=== PATIENT | male | born 1960 | race African-American/Black ===

== ENCOUNTER 2024-02-14 10:48 | Inpatient (IN) | payer OTHER ==
[~2024-02-14] VITALS: Ht 180.3 cm; Wt 94.4 kg
[2024-02-14 11:00] VITALS: PULSE 69; RESP 18; O2SAT 98
--- NOTE | 2024-02-14 11:00 | ED.PDOC ---
History of Present Illness HPI Comments 63 Y M BIBA with PMHX of HTN and DM, presents to the ED with CC of syncope. Per EMS, patient was having breakfast at [employer] with daughter when he got up to use the bathroom and had a near syncopal episode with associated vomiting. Patient relays, that he woke up this morning feeling fine but has been experiencing chronic back pain x1week due to herniated disks. Per EMS, all VS were stable and BS on the glucometer read at 314. Patient denies, tobacco usage, ETOH consumption, or illicit drug use. Patient denies LOC, fever, chills, or headache. Chief Complaint: Syncope Time Seen by MD: 10:50 Reviewed Notes: Nurses Notes, Supply Controller Notes, Medications, Allergies Allergies: Coded Allergies: NO KNOWN ALLERGIES (Unverified , 01/18/10) Information Source: Patient, Emergency Med Personnel Mode of Arrival: EMS Severity: Mild Timing: Minutes Duration: Since onset Prehospital treatment: Accucheck Past Medical History PAST MEDICAL HISTORY: DM, HTN Surgical History: Hernia Repair, Tonsillectomy Surgical History (Other): RIGHT KNEE REPLACMENT Family History Family History: Family hx of Cancer Social History Smoker: Non-Smoker Alcohol: Occasionally Drugs: Denies Drug Use Lives In: Home Constitutional: reports: weakness; denies: chills, diaphoresis, fatigue, fever, malaise, sweats, others EENTM: denies: blurred vision, double vision, ear bleeding, ear discharge, ear drainage, ear pain, ear ringing, eye pain, eye redness, hearing loss, mouth pain, mouth swelling, nasal discharge, nose bleeding, nose congestion, nose pain, photophobia, tearing, throat pain, throat swelling, voice changes, others Respiratory: denies: cough, hemoptysis, orthopnea, SOB at rest, shortness of breath, SOB with excertion, stridor, wheezing, others Cardiovascular: denies: chest pain, dizzy spells, diaphoresis, Dyspnea on exertion, edema, irregular heart beat, left arm pain, lightheadedness, palpitations, PND, syncope, others Gastrointestinal: denies: abdomen distended, abdominal pain, blood streaked bowels, constipated, diarrhea, dysphagia, difficulty swallowing, hematemesis, melena, nausea, poor appetite, poor fluid intake, rectal bleeding, rectal pain, vomiting, others Genitourinary: denies: burning, dysuria, flank pain, frequency, hematuria, incontinence, penile discharge, penile sore, pain, testicle pain, testicle swelling, urgency, others Neurological: denies: dizziness, fainting, headache, left sided numbness, left sided weakness, numbness, paresthesia, pre-existing deficit, right sided numbness, right sided weakness, seizure, speech problems, tingling, tremors, weakness, others Musculoskeletal: reports: back pain; denies: gout, joint pain, joint swelling, muscle pain, muscle stiffness, neck pain, others Integumetry: denies: bruises, change in color, change in hair/nails, dryness, laceration, lesions, lumps, rash, wounds, others Allergic/Immunocompromised: denies: Difficulty Healing, Frequent Infections, Hives, Itching, others Hematologic/Lymphatic: denies: anemia, blood clots, easy bleeding, easy bruising, swollen glands, others Endocrine: denies: excessive hunger, excessive sweating, excessive thirst, excessive urination, flushing, intolerance to cold, intolerance to heat, unexplained weight gain, unexplained weight loss, others Psychiatric: denies: anxiety, bipolar disorder, depression, hopeless, panic disorder, schizophrenia, sleepless, suicidal, others All Other Systems: Reviewed and Negative Physical Exam General Appearance: Moderate Distress HEENT: Pale Conjuntivae (L), Pale Conjuntivae (R), Pharynx Normal, TMs Normal Neck: Full Range of Motion, Non-Tender, Normal, Normal Inspection Respiratory: Chest Non-Tender, Lungs Clear, No Accessory Muscle Use, No Respiratory Distress, Normal Breath Sounds Cardiovascular: No Edema, No JVD, No Murmur, No Gallop, Normal Peripheral Pulses, Regular Rate/Rhythm Breast Exam: Deferred Gastrointestinal: No Organomegaly, Non Tender, No Pulsatile Mass, Normal Bowel Sounds, Soft Genitalia: Deferred Pelvic: Deferred Rectal: Deferred Extremities: No calf tenderness, Normal capillary refill, Normal inspection, Normal range of motion, Non-tender, No pedal edema Musculoskeletal : Apperance: Normal Neurologic: Alert, coke drawer II-XII nml as Tested, Motor Weakness, Normal Affect, Normal Mood, No Sensory Deficits Cerebellar Function: Normal Reflexes: Normal Skin: Dry, Normal Color, Warm Lymphatic: No Adenopathy Was a procedure done? Was a procedure done?: No EKG EKG : Pulse Rate (adult): 65 [place]: Normal Cardiac Rhythm: NSR Block: None Hypertrophy: None ST: Normal Differential Dx Considerations may include: NEAR SYNCOPAL EPISODE, WEAKNESS, ELECTROLYTE IMBALANCE X-Ray, Labs, Meds, VS Vital Signs Date Time Temp Pulse Resp B/P (MAP) Pulse Ox O2 Delivery O2 Flow Rate FiO2 02/14/24 12:56 98.7 69 18 144/92 (109) 99 98.7 02/14/24 11:00 69 18 98 Room Air* 0 21 02/14/24 11:00 98.3 69 18 134/79 (97) 98 98.3 02/14/24 11:00 65 02/14/24 10:56 98.2 69 18 134/79 (97) 98 98.2 02/14/24 10:52 97.6 70 16 153/95 (114) 99 02/14/24 10:48 65 Lab Test 02/14/24 12:24 02/14/24 11:03 02/14/24 10:59 Range/Units Troponin I High Sensitivity < 3 L < 3 L </=54 ng/L White Blood Count 9.9 4.4-10.8 10^3/uL Red Blood Count 5.60 4.5-5.90 10^6/uL Hemoglobin 17.2 13.5-17.5 g/dL Hematocrit 50.0 41.0-53.0 % Mean Corpuscular Volume 89.3 80.0-100.0 fL Mean Corpuscular Hemoglobin 30.8 28.0-32.0 pg Mean Corpuscular Hemoglobin Concent 34.4 32.0-36.0 g/dL Red Cell Distribution Width 12.6 11.8-14.3 % Platelet Count 213 140-450 10^3/uL Mean Platelet Volume 8.6 6.9-10.8 fL Neutrophils (%) (Auto) 70.6 37.0-80.0 % Lymphocytes (%) (Auto) 20.7 10.0-50.0 % Monocytes (%) (Auto) 6.2 0.0-12.0 % Eosinophils (%) (Auto) 2.0 0.0-7.0 % Basophils (%) (Auto) 0.5 0.0-2.0 % Neutrophils # (Auto) 7.0 1.6-8.6 10 ^3/uL Lymphocytes # (Auto) 2.0 0.4-5.4 10 ^3/uL Monocytes # (Auto) 0.6 0-1.3 10 ^3/uL Eosinophils # (Auto) 0.2 0-0.8 10 ^3/uL Basophils # (Auto) 0.1 0-0.2 10 ^3/uL Nucleated Red Blood Cells 0.0 % Sodium Level 137 136-145 mmol/L Potassium Level 3.6 3.5-5.1 mmol/L Chloride Level 105 98-107 mmol/L Carbon Dioxide Level 22 20-31 mmol/L Anion Gap 10 5-15 Blood Urea Nitrogen 11 9-23 mg/dL Creatinine 1.10 0.700-1.30 mg/dL Glomerular Filtration Rate Calc 76 >90 mL/min BUN/Creatinine Ratio 10.0 10.0-20.0 Serum Glucose 317 H 74-106 mg/dL Calcium Level 10.0 8.7-10.4 mg/dL POC Glucose 275 H 70-106 mg/dl Current Medications Medications (Trade) Dose Ordered Sig/Graeme Route Start Time Stop Time Status Last Admin Sodium Chloride 500 ml @ 500 mls/hr Q1H ONCE IV 02/14/24 11:00 02/14/24 11:59 DC 02/14/24 11:[address]: INDINGS: There is no evidence of acute intracranial hemorrhage, mass, mass effect midline shift. There is no hydrocephalus or extra-axial fluid collection. There are small hypodense foci in the bilateral basal ganglia which may represent prominent perivascular spaces. Grant-white matter differentiation is maintained. The visualized paranasal sinuses and mastoid air cells are clear. The calvarium is intact. IMPRESSION: 1. No acute intracranial process. HS:Y ATED BY: DALTON GALEANA MD DICTATED DATE/TIME: 02/14/241144 SIGNED BY: DALTON GALEANA MD SIGNED DATE/TIME: 02/14/241144 CC: The patient was being admitted with autonomic dysfunction The CBC and chemistry panel is within normal limits except for hyperglycemia The troponin level x2 is negative The patient was being admitted with a diagnosis of autonomic dysfunction. Time of 1ST Reevaluation: 11:20 Reevaluation 1ST: Unchanged Patient Education/Counseling: Diagnosis, Treatment Family Education/Counseling: No Family Present Departure 1 Departure Time of Disposition: 14:46 Impression: Primary Impression: Autonomic dysfunction Additional Impression: Near syncope Disposition: 09 ADMITTED INPATIENT Admit to: Tele Condition: Fair Critical Care Note Critical Care Time?: Yes (45 min-critical care time only) Stability Stability form required: Yes Unstable for transfer: Telemetry monitoring (Telemetry monitoring required), ED Physician Assesment (Clinical assesment) Heart Score Heart Score: Heart Score Response (Comments) Value History N/A 0 EKG N/A 0 Age N/A 0 Risk Factors N/A 0 Troponin N/A 0 Total 0 I personally scribed for SKY RENNER MD ([email or web address]) on 02/14/24 at 11:00. Electronically submitted by Monica Self ([employer]). I personally scribed for SKY RENNER MD ([email or web address]) on 02/14/24 at 12:07. Electronically submitted by Monica Self ([employer]). I personally scribed for SKY RENNER MD ([email or web address]) on 02/14/24 at 12:08. Electronically submitted by Monica Self ([employer]). SKY RENNER MD Feb 14, 2024 11:00
[2024-02-14] MEDS: SODIUM CHLORIDE 0.9% 500 ML IV ONE (11:05)
[2024-02-14 11:24] LABS: Basophils # (auto) 0.1 10 ^3/uL (0-0.2); Basophils % (auto) 0.5 % (0.0-2.0); Eosinophils # (auto) 0.2 10 ^3/uL (0-0.8); Hemoglobin 17.2 g/dL (13.5-17.5); Lymphocytes % (auto) 20.7 % (10.0-50.0); Mean Corpuscular Hemoglobin 30.8 pg (28.0-32.0); Mean Corpuscular Hgb Conc. 34.4 g/dL (32.0-36.0); Mean Corpuscular Volume 89.3 fL (80.0-100.0); Monocytes # (auto) 0.6 10 ^3/uL (0-1.3); Monocytes % (auto) 6.2 % (0.0-12.0); Neutrophils % (auto) 70.6 % (37.0-80.0); Platelet Count (auto) 213 10^3/uL (140-450); Red Cell Distribution Width 12.6 % (11.8-14.3); White Blood Cell 9.9 10^3/uL (4.4-10.8)
[2024-02-14 11:45] LABS: Chloride 105 mmol/L (98-107); Potassium 3.6 mmol/L (3.5-5.1); Sodium 137 mmol/L (136-145)
[2024-02-14 11:46] LABS: Anion Gap 10 (5-15); Carbon Dioxide 22 mmol/L (20-31)
--- NOTE | 2024-02-14 11:47 | DVH ---
EXAM: CT HEAD WITHOUT CONTRAST HISTORY: syncope COMPARISON: None TECHNIQUE: Axial images of the head were obtained and reformatted in coronal and sagittal planes. All CT scans at this medical facility are performed using dose modulation techniques as appropriate t o a performed exam including the following: Automated exposure control was utilized; adjustment of th e MA and/or KV according to patient size; and use of iterative reconstruction technique. CT Dose: CTDI volume is 65 mGy. Dose-length product is 1292 mGy*cm FINDINGS: There is no evidence of acute intracranial hemorrhage, mass, mass effect midline shift. There is no h ydrocephalus or extra-axial fluid collection. There are small hypodense foci in the bilateral basal g anglia which may represent prominent perivascular spaces. Grant-white matter differentiation is mainta ined. The visualized paranasal sinuses and mastoid air cells are clear. The calvarium is intact. IMPRESSION: 1. No acute intracranial process. HS:Y
[2024-02-14 11:51] LABS: Blood Urea Nitrogen 11 mg/dL (9-23)
[2024-02-14 11:56] LABS: Glucose 317 mg/dL (74-106)
--- NOTE | 2024-02-14 13:42 | DVHHP2 ---
History of Present Illness Reason for Visit: Syncopal episode History of Present Illness 63-year-old male past medical history hypertension diabetes back pain herniated disc surgical history tonsillectomy hernia surgery right knee replacement chief complaint patient states he went to breakfast with his daughter he had gotten his food and when he was sitting down he felt a little bit off he took a bite of the food and all son he started feeling dizziness he tried to get up and walk he he felt dizzy so he sat back at the table and he vomited 3 times at the table there was no blood in his vomitus and then he had a syncopal episode. Prior to the episode patient denied any chest pain denied any shortness of the breath. He did not hit his head when he had the syncopal episode. Patient currently states feeling much better never had any issues with syncope in the past. When evaluating patient's labs and imaging normal saline was given CBC was unre markable troponin was negative x2 glucose was 317 CT scan of the brain was unremarkable otherwise CBC and CMP unremarkable. Patient states he has been in greater than a year before he has a physical in the past. With these findings we will admit and ask for syncopal episode. Past Medical History Hypertension diabetes back pain herniated disc Past Surgical History Tonsillectomy hernia repair right knee replacement Family History Reviewed, non-contributory to the management of this case. Past Social History The patient lives at home, denies smoking, alcohol or illicit drugs abuse. Review of Systems Constitutional: No: Fever, Chills, Sweats, Weakness, Malaise, Other Eyes: No: Pain, Vision change, Conjunctivae inflammation, Eyelid inflammation, Other, Redness ENT: No: Ear pain, Ear discharge, Nose pain, Nose discharge, Nose congestion, Mouth pain, Mouth swelling, Throat pain, Throat swelling, Other Respiratory: No: Cough, Dry, Shortness of breath, SOB with excertion, Wheezing, Hemoptysis, Pleuritic Pain, Sputum, Wheezing, Other Cardiovascular: No: Chest Pain, Palpitations, Orthopnea, Paroxysmal Noc. Dyspnea, Edema, Lt Headedness, Other Gastrointestinal: Nausea, Vomiting Genitourinary: No Dysuria, No Frequency, No Incontinence, No Hematuria, No Retention, No Other Musculoskeletal: No: other, neck pain, shoulder pain, arm pain, back pain, hand pain, leg pain, foot pain Skin: No: Rash, Lesions, Jaundice, Bruising, Other Neurological: Other (Syncope episode); No: Weakness, Numbness, Incoordination, Change in speech, Confusion, Seizures Allergies: Coded Allergies: NO KNOWN ALLERGIES (Unverified , 01/18/10) Exam Vital Signs Vital Signs Date Time Temp Pulse Resp B/P (MAP) Pulse Ox O2 Delivery O2 Flow Rate FiO2 02/14/24 12:56 98.7 69 18 144/92 (109) 99 98.7 02/14/24 11:00 Room Air* 0 21 General Appearance: Alert, Oriented X3, Cooperative, No acute distress HEENT: Atraumatic, PERRLA, EOMI, Mucous membr. moist/pink Respiratory: Clear to auscultation, Normal air movement Cardiovascular: Regular rate, Normal S1, Normal S2, No murmurs Abdominal: Normal bowel sounds, Soft, No tenderness, No hepatospenomegaly, No masses Extremities: No clubbing, No cyanosis, No edema, Normal pulses, No tenderness/swelling Skin: No rashes, No breakdown, No significant lesion Neuro: Normal gait, Normal speech, Strength at 5/5 X4 ext, Normal tone, Sensation intact, Cranial nerves 3-12 NL Psych/Mental Status: Mental status NL, Mood NL Labs/Xrays CT scan of the brain unremarkable I reviewed labs, imaging CT scan abdomen pelvis, EKG and all diagnostic studies on this patient from ED records and the medical chart Labs Test 02/14/24 12:24 02/14/24 11:03 02/14/24 10:59 Range/Units Troponin I High Sensitivity < 3 L </=54 ng/L White Blood Count 9.9 4.4-10.8 10^3/uL Red Blood Count 5.60 4.5-5.90 10^6/uL Hemoglobin 17.2 13.5-17.5 g/dL Hematocrit 50.0 41.0-53.0 % Mean Corpuscular Volume 89.3 80.0-100.0 fL Mean Corpuscular Hemoglobin 30.8 28.0-32.0 pg Mean Corpuscular Hemoglobin Concent 34.4 32.0-36.0 g/dL Red Cell Distribution Width 12.6 11.8-14.3 % Platelet Count 213 140-450 10^3/uL Mean Platelet Volume 8.6 6.9-10.8 fL Neutrophils (%) (Auto) 70.6 37.0-80.0 % Lymphocytes (%) (Auto) 20.7 10.0-50.0 % Monocytes (%) (Auto) 6.2 0.0-12.0 % Eosinophils (%) (Auto) 2.0 0.0-7.0 % Basophils (%) (Auto) 0.5 0.0-2.0 % Neutrophils # (Auto) 7.0 1.6-8.6 10 ^3/uL Lymphocytes # (Auto) 2.0 0.4-5.4 10 ^3/uL Monocytes # (Auto) 0.6 0-1.3 10 ^3/uL Eosinophils # (Auto) 0.2 0-0.8 10 ^3/uL Basophils # (Auto) 0.1 0-0.2 10 ^3/uL Nucleated Red Blood Cells 0.0 % Sodium Level 137 136-145 mmol/L Potassium Level 3.6 3.5-5.1 mmol/L Chloride Level 105 98-107 mmol/L Carbon Dioxide Level 22 20-31 mmol/L Anion Gap 10 5-15 Blood Urea Nitrogen 11 9-23 mg/dL Creatinine 1.10 0.700-1.30 mg/dL Glomerular Filtration Rate Calc 76 >90 mL/min BUN/Creatinine Ratio 10.0 10.0-20.0 Serum Glucose 317 H 74-106 mg/dL Calcium Level 10.0 8.7-10.4 mg/dL POC Glucose 275 H 70-106 mg/dl Assessment/Plan Assessment/Plan Acute syncopal episode CT the brain is negative ordered echocardiogram ordered if abnormal consider cards workup ordered carotid Doppler ordered ordered Orthostatic vital signs ordered IV fluids Fall precautions PT eval and treat trop negative can consider neurology consult follow up recs ordered asa atorvastatin chronic problems with continuation of home medication htn uncontrolled cont home medication dm ISS back pain with herniated disc fen/ppx diet ivf scd no gi ppx since no hx of gerds or gi bleed plan admit to medicine cards workup Plan discussed with: Patient Date of Service: Feb 14, 2024 Billing Provider: MELANI PÉREZ DNP Common Visit Codes: [id number] INP/OBS CARE (HIGH) MELANI PÉREZ DNP Feb 14, 2024 13:41
[2024-02-14] MEDS ORDERED: NITROGLYCERIN 0.4 MG SL TAB SL PRN (14:45)
[2024-02-14] MEDS ORDERED: ONDANSETRON HCL 4 MG/2 ML VIAL IV PRN (14:45)
[2024-02-14] MEDS ORDERED: DEXTROSE (50%) 50ML SYRG IV PRN (14:45)
[2024-02-14] MEDS ORDERED: DOCUSATE SOD 100 MG CAP PO PRN (14:45)
--- NOTE | 2024-02-14 15:58 | DVH ---
CAROTID ARTERIAL DOPPLER CLINICAL HISTORY: eval for vascular occlusin TECHNIQUE: Doppler study of bilateral carotid/vertebral arteries were performed. Comparison: None FINDINGS: The bilateral common carotid, external and internal carotid arteries appear patent without hemodynami dio significant stenosis. There is no significant flow limiting plaque formation identified.The sp ectral wave forms and peak systolic velocities are within normal limits. Antegrade flow is present within the vertebral arteries with appropriate velocities and waveforms. Right ICA/CCA PSV ratio = 1.1. Left ICA/CCA PSV ratio = 0.8 . IMPRESSION: 1. No hemodynamically significant stenosis within the carotid arteries. HS:Y
[2024-02-14 16:49] VITALS: PULSE 83; RESP 18; O2SAT 97
[2024-02-14] MEDS: ACCU-CHEK COMFORT CURVE STRIP VI SCH (17:02)
[2024-02-14] MEDS: InsuLIN REG 1unit/0.01ml Soln (100units/ml) SC SCH ×2 (17:03→23:33)
[2024-02-14] MEDS: SODIUM CHLORIDE 0.9% 1,000 ML IV SCH (17:05)
[2024-02-14 17:08] VITALS: BP 123/60; PULSE 83; RESP 18; TEMP 98.7; O2SAT 97
[2024-02-14] MEDS ORDERED: METF-929 PO (17:52)
--- NOTE | 2024-02-14 18:32 | ECG ---
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
[2024-02-14] MEDS: MORPHINE SULFATE INJ 2 MG/ml SYRG IV PRN (21:31)
[2024-02-14 21:33] VITALS: BP 167/93; PULSE 125; RESP 18; TEMP 98.3; O2SAT 99
[2024-02-15] VITALS (8 sets, daily range): BP systolic 133–142; BP diastolic 78–95; PULSE 60–103; RESP 16–19; TEMP 97.7–98.7; O2SAT 94–98
[2024-02-15 08:26] LABS: Alanine Aminotransferase 29 U/L (7-40); Alkaline Phosphatase 55 U/L (46-116); Anion Gap 9 (5-15); Calcium 9.1 mg/dL (8.7-10.4); Carbon Dioxide 24 mmol/L (20-31); Sodium 142 mmol/L (136-145)
[2024-02-15 08:27] LABS: BUN/Creatinine Ratio 13.4 (10.0-20.0); Blood Urea Nitrogen 11 mg/dL (9-23)
[2024-02-15 08:28] LABS: Albumin 3.7 g/dL (3.2-4.8); Aspartate Aminotransferase 18 U/L (13-40)
[2024-02-15 08:29] LABS: Bilirubin, Total 0.9 mg/dL (0.2-1.0); Total Protein 5.9 g/dL (5.7-8.2)
[2024-02-15 08:31] LABS: Basophils # (auto) 0 10 ^3/uL (0-0.2); Basophils % (auto) 0.5 % (0.0-2.0); Chloride 109 mmol/L (98-107); Eosinophils # (auto) 0.3 10 ^3/uL (0-0.8); Eosinophils % (auto) 2.9 % (0.0-7.0); Glucose 172 mg/dL (74-106); Hematocrit 44.6 % (41.0-53.0); Hemoglobin 15.6 g/dL (13.5-17.5); Lymphocytes # (auto) 2.3 10 ^3/uL (0.4-5.4); Lymphocytes % (auto) 24.3 % (10.0-50.0); Mean Corpuscular Hemoglobin 30.7 pg (28.0-32.0); Mean Corpuscular Volume 87.7 fL (80.0-100.0); Monocytes # (auto) 0.7 10 ^3/uL (0-1.3); Monocytes % (auto) 7.4 % (0.0-12.0); Neutrophils # (auto) 6.1 10 ^3/uL (1.6-8.6); Neutrophils % (auto) 64.9 % (37.0-80.0); Platelet Count (auto) 189 10^3/uL (140-450); Potassium 3.1 mmol/L (3.5-5.1); Red Blood Cells 5.09 10^6/uL (4.5-5.90); Red Cell Distribution Width 12.6 % (11.8-14.3); White Blood Cell 9.4 10^3/uL (4.4-10.8)
[2024-02-15] MEDS: POTASSIUM CHL 20 Meq TABLET PO ONE (11:43)
[2024-02-15 12:12] LABS: Opiate Scree,Urine Neg (NEGATIVE)
[2024-02-15 12:13] LABS: Amphetamine Screen, Urine Neg (NEGATIVE); Barbiturate Scree,Urine Neg (NEGATIVE); Benzodiazephine Screen, Urine Neg (NEGATIVE); Cannabinoid Screen, Urine Neg (NEGATIVE); Cocaine Screen, Urine Neg (NEGATIVE); Phencyclidine Screen, Urine Neg (NEGATIVE)
--- NOTE | 2024-02-15 12:20 | DVHINCON2 ---
Date Seen: Feb 15, 2024 Referring Physician ROMELIA Silvestre Reason for Consultation Syncope History of Present Illness This is a 63-year-old male patient who presents to emergency room with chief complaint of syncopal episode. The patient reports he was eating breakfast at [facility] with his daughter when suddenly he began to feel lightheaded, foggy, nauseous and a warm sensation over his body. He states he quickly got up from the [place] to walk towards the restroom when suddenly his legs collapsed from under him and he fell into the castellon. He denies hitting his head or any loss of consciousness. At that time, he also states he vomited into the castellon. EMS was called and the patient was brought to the emergency room for further evaluation. Initial twelve lead electrocardiogram reveals normal sinus rhythm without any significant ST segment changes. Initial serial troponin levels have been negative. Significant past medical history includes hypertension, hyperlipidemia, type 2 diabetes mellitus, sleep apnea with CPAP at home, and obesity. The patient also mentions one other syncopal episode approximately 1.5 years ago while at [facility]. He reports that at that time he did lose consciousness but never had any kind of evaluation or workup after the incident. Past Medical History Past medical history reviewed. No other significant than mentioned above. Past Surgical History Denies any previous surgeries Family History Family history reviewed. Social History Denies the use of tobacco, alcohol or illicit drugs. Allergies: Coded Allergies: NO KNOWN ALLERGIES (Unverified , 01/18/10) Home Meds Reported Medications Metformin HCl (Metformin Hydrochloride) 1,000 Mg Tab, 1000 MG PO BID, TAB 02/14/24 Home Meds Home medications reviewed. Current Medications Current Medications Medications (Trade) Dose Ordered Sig/Graeme Route PRN Reason Start Time Stop Time Status Last Admin Sodium Chloride 1,000 ml @ 120 mls/hr Q8H20M IV 02/14/24 14:45 02/14/24 23:34 Ondansetron HCl (Zofran) 4 mg Q4HP PRN IV NAUSEA / VOMITING 02/14/24 14:45 Docusate Sodium (Colace Capsule) 100 mg BIDPRN PRN PO FOR CONSTIPATION 02/14/24 14:45 Morphine Sulfate 2 mg Q4HPRN PRN IV SEVERE PAIN (7-10 PAIN SCALE) 02/14/24 14:45 02/14/24 21:31 Nitroglycerin (Ntrostat Sublingual) 0.4 mg Q5MINP PRN SL FOR CHEST PAIN 02/14/24 14:45 Diagnostic Test (Pha) (Accu-Chek Comfort Curve T) 1 strip ACHS 02/14/24 17:00 02/15/24 11:43 Insulin Human Regular (InsuLIN R) HS SC 02/14/24 22:00 02/14/24 23:33 Insulin Human Regular (InsuLIN R) AC SC 02/14/24 17:00 02/15/24 11:51 Dextrose 50 ml UD PRN IV Blood Sugar LESS THAN 60 02/14/24 14:45 Review of Systems Constitutional: No symptom reported Ears, Nose, & Throat: No symptom reported Eyes: No symptom reported Neurological: Syncope Pulmonary/Respiratory: No symptoms reported Cardiovascular: No symptom reported Gastrointestinal: No symptom reported Genitourinary: No symptom reported Musculoskeletal: No symptom reported Skin: No symptom reported Psychiatric: No symptom reported Endocrine: No symptom reported Hematologic/Lymphatic: No symptom reported Vital Signs Vital Signs Date Time Temp Pulse Resp B/P (MAP) Pulse Ox O2 Delivery O2 Flow Rate FiO2 02/15/24 08:38 97.7 60 16 133/85 (101) 96 97.7 02/15/24 08:00 Room Air* 0 21 Physical Exam General Appearance: Cooperative. Obese Pulmonary/Respiratory: Clear, bilateral breaths sounds. Cardiovascular/Chest: Regular rate and rhythm Peripheral Pulses: 2+ Radial (R). 2+ Radial (L). 2+ Pedal (R). 2+ Pedal (L) Abdominal Exam: Normal bowel sounds. Ankle Exam: Negative ankle edema Lower extremities: Negative lower extremity edema Neuro/Mental Status: A/OX4, coherent. Thoughts/Psych: Normal thought pattern. Appropriate mood and affect. Good judgment and insight. Appearance: No acute distress. Skin Exam: Normal inspection. Normal color. Warm and dry. Labs/Diagnostic Data Labs Test 02/15/24 12:00 02/15/24 11:35 02/15/24 07:00 02/14/24 12:24 Range/Units Urine Opiates Screen Neg NEGATIVE Urine Fentanyl Screen Neg NEGATIVE Urine Barbiturates Screen Neg NEGATIVE Urine Phencyclidine Screen Neg NEGATIVE Urine Amphetamines Screen Neg NEGATIVE Urine Benzodiazepines Screen Neg NEGATIVE Urine Cocaine Screen Neg NEGATIVE Urine Cannabinoids Screen Neg NEGATIVE POC Glucose 243 H 70-106 mg/dl White Blood Count 9.4 4.4-10.8 10^3/uL Red Blood Count 5.09 4.5-5.90 10^6/uL Hemoglobin 15.6 13.5-17.5 g/dL Hematocrit 44.6 # 41.0-53.0 % Mean Corpuscular Volume 87.7 80.0-100.0 fL Mean Corpuscular Hemoglobin 30.7 28.0-32.0 pg Mean Corpuscular Hemoglobin Concent 35.0 32.0-36.0 g/dL Red Cell Distribution Width 12.6 11.8-14.3 % Platelet Count 189 140-450 10^3/uL Mean Platelet Volume 8.5 6.9-10.8 fL Neutrophils (%) (Auto) 64.9 37.0-80.0 % Lymphocytes (%) (Auto) 24.3 10.0-50.0 % Monocytes (%) (Auto) 7.4 0.0-12.0 % Eosinophils (%) (Auto) 2.9 0.0-7.0 % Basophils (%) (Auto) 0.5 0.0-2.0 % Neutrophils # (Auto) 6.1 1.6-8.6 10 ^3/uL Lymphocytes # (Auto) 2.3 0.4-5.4 10 ^3/uL Monocytes # (Auto) 0.7 0-1.3 10 ^3/uL Eosinophils # (Auto) 0.3 0-0.8 10 ^3/uL Basophils # (Auto) 0 0-0.2 10 ^3/uL Nucleated Red Blood Cells 0.0 % Sodium Level 142 # 136-145 mmol/L Potassium Level 3.1 L 3.5-5.1 mmol/L Chloride Level 109 H 98-107 mmol/L Carbon Dioxide Level 24 20-31 mmol/L Anion Gap 9 5-15 Blood Urea Nitrogen 11 9-23 mg/dL Creatinine 0.82 0.700-1.30 mg/dL Glomerular Filtration Rate Calc 100 >90 mL/min BUN/Creatinine Ratio 13.4 10.0-20.0 Serum Glucose 172 #H 74-106 mg/dL Calcium Level 9.1 8.7-10.4 mg/dL Total Bilirubin 0.9 0.2-1.0 mg/dL Aspartate Amino Transferase (AST) 18 13-40 U/L Alanine Aminotransferase (ALT) 29 7-40 U/L Alkaline Phosphatase 55 46-116 U/L Total Protein 5.9 5.7-8.2 g/dL Albumin 3.7 3.2-4.8 g/dL Troponin I High Sensitivity < 3 L </=54 ng/L Test 02/14/24 11:03 Range/Units Hemoglobin A1c 12.9 H <5.7 % A1C Assessment Syncope, rule out cardiac etiology Hypertension Hyperlipidemia Type 2 diabetes mellitus Sleep apnea with CPAP use Obesity Plan/Recommendation We will continue with the following plan/recommendations (Dr. Galeana): * Echocardiogram to evaluate cardiac function * Bilateral carotid ultrasound: Negative for stenosis * Orthostatic vital signs * Cardiac surveillance: Notify of any arrhythmias * Labs: TSH Thank you for allowing us to care for this patient. Please call with any questions or concerns. Critical care time spent: 44 minutes This medical document was created using an electronic medical record system with voice recognition software and computerized dictation system. Although this document has been carefully reviewed, there might still be some phonetic and typographical errors. Occasional wrong-word or ``sound-alike substitutions may have occurred due to the inherent limitations of voice recognition software. These areas are purely typographical due to imperfections of the software programs and do not reflect any compromise in the patient's medical care. Please read the chart carefully and recognize, using context, where these substitutions have occurred. Plan discussed with: Patient NYHA Physical activity limitations: NA Date of Service: Feb 15, 2024 Billing Provider: BUCK SUMMERS Cardiology Common Codes: [id number] INP/OBS CARE (High) Cardiology Consultation Codes: [id number] CONSULT <45MIN BUCK SUMMERS Feb 15, 2024 12:20
[2024-02-15 12:38] LABS: Urine Bacteria FEW /hpf (None Seen); Urine Blood Negative /uL (Negative); Urine Clarity Clear (Clear); Urine Color Light-Yellow (Yellow); Urine Protein, UAD Negative (Negative); Urine Specific Gravity 1.016 (1.001-1.035); Urine Squamous Epithelial Cell FEW /hpf (<5); Urine Urobilinogen Normal (Negative); Urine WBC 5 /hpf (0 - 3)
[2024-02-15] MEDS ORDERED: SITA25TA3 PO (17:12)
--- NOTE | 2024-02-15 19:30 | DVHSR ---
APPROVED REPORT EXAM: Two-dimensional and M-mode echocardiogram with Doppler and color Doppler. Blood Pressure: 135/78 mmHg INDICATION Eval cardiac function RISK FACTORS Height: 5'11", Weight: 194 DIMENSIONS LVDd4.6 (3.8-5.7cm)LA (2D)4.1 (1.9-4.0cm)Aortic Root3.3 (2.0-3.7cm) LVDs2.6 (2.5-4.0cm)LA (MM) (1.9-4.0cm)Aortic Cusp Exc2.0 (1.5-2.0cm) EF (%) 73.0 (55-70%)Rt. Atrium3.5 (1.9-4.0cm)Asc. Aorta3.8 cm IVSd1.3 (0.7-1.1cm)RV (D) (1.8-2.4cm) PWd1.1 (0.7-1.1cm) Mitral Valve MitralMitral Stenosis E wave0.68m/sMV Mean GR.mmHg A wave0.52m/sMV Peak GR.mmHg E/A ratio1.32D MVAcm2 DECEL [id number] 1/2 Timems Aortic Valve Aortic ValveAortic Stenosis V11.01m/Martha Mean GR.2mmHg V20.96m/Martha Peak GR.4mmHg LVOT Diameter2.4 (1.8-2.4cm)Doppler AVA4.76cm2 Pulmonic Valve V20.79m/s Tricuspid Valve TR Velocity2.11m/s [id number] Conclusion LV EF IS 75% AND IS NORMAL NORMAL VALVES NO EFFUSION RVSP IS 23 MM OF HG AND IS NORMAL GROSSLY NORMAL STUDY
--- NOTE | 2024-02-15 19:58 | DVHINCON2 ---
Date Seen: Feb 15, 2024 Referring Physician ROMELIA Silvestre Reason for Consultation Syncope History of Present Illness This is a 63-year-old male with a past medical history of hypertension, hyperlipidemia, type 2 diabetes mellitus, sleep apnea with CPAP at home, and obesity who presented to the ED with complaints of syncopal episode. The patient reports he was eating breakfast at [facility] with his daughter when suddenly he began to feel lightheaded, foggy, nauseous and a warm sensation over his body. Patient states he quickly got up from the [place] to walk towards the restroom when suddenly his legs collapsed from under him and he fell into the [place]ell[place]. He denies hitting his head or any loss of consciousness. At that time, he also states he vomited into the [place]ell[place]. EMS was called and the patient was brought to the ED for further evaluation. Initial twelve lead electrocardiogram reveals normal sinus rhythm without any significant ST segment changes. Initial serial troponin levels have been negative. The patient also mentions one other syncopal episode approximately 1.5 years ago while at [facility]. He reports that at that time he did lose consciousness but never had any kind of evaluation or workup after the incident. CT head shows no acute intracranial process. Cartoid Doppler shows no hemodynamically significant stenosis within the carotid arteries. Patient was admitted to the hospital. I am asked to consult on this patient. Allergies: Coded Allergies: NO KNOWN ALLERGIES (Unverified , 01/18/10) Home Meds Active Scripts Sitagliptin Phosphate (Januvia) 25 Mg Tab, 25 MG PO DAILY for 30 Days, #30 TAB 1 Refill Prov:ABDELRAHMAN DE LEÓN MD 02/15/24 Reported Medications Metformin HCl (Metformin Hydrochloride) 1,000 Mg Tab, 1000 MG PO BID, TAB 02/14/24 Current Medications Current Medications Medications (Trade) Dose Ordered Sig/Graeme Route PRN Reason Start Time Stop Time Status Last Admin Diagnostic Test (Pha) (Accu-Chek Comfort Curve T) 1 strip ACHS 02/14/24 17:00 02/15/24 11:43 Insulin Human Regular (InsuLIN R) HS SC 02/14/24 22:00 02/14/24 23:33 Insulin Human Regular (InsuLIN R) AC SC 02/14/24 17:00 02/15/24 11:51 Review of Systems Constitutional: No symptom reported Ears, Nose, & Throat: No symptom reported Eyes: No symptom reported Neurological: Syncope Pulmonary/Respiratory: No symptoms reported Cardiovascular: No symptom reported Gastrointestinal: No symptom reported Genitourinary: No symptom reported Musculoskeletal: No symptom reported Skin: No symptom reported Psychiatric: No symptom reported Endocrine: No symptom reported Hematologic/Lymphatic: No symptom reported Vital Signs Vital Signs Date Time Temp Pulse Resp B/P (MAP) Pulse Ox O2 Delivery O2 Flow Rate FiO2 02/15/24 13:00 97.7 69 16 141/92 (108) 98 97.7 02/15/24 08:00 Room Air* 0 21 Physical Exam GENERAL: Awake, alert, oriented. Obese. LUNGS: Diminished breath sounds. CARDIOVASCULAR: Heart sounds are good. ABDOMEN: Soft. Labs/Diagnostic Data Labs Test 02/15/24 12:00 02/15/24 11:35 02/15/24 07:00 02/14/24 12:24 Range/Units Urine Color Light-yellow Yellow Urine Clarity Clear Clear Urine pH 6.0 5.0-9.0 Urine Specific [place] 1.016 1.001-1.035 Urine Protein Negative Negative Urine Ketones 1+ H Negative Urine Blood Negative Negative /uL Urine Nitrite Negative Negative Urine Bilirubin Negative Negative Urine Urobilinogen Normal Negative mg/dL Urine Leukocyte Esterase Negative Negative /uL Urine RBC None seen 0 - 3 /hpf Urine WBC 5 0 - 3 /hpf Urine Squamous Epithelial Cells Few <5 /hpf Urine Bacteria Few H None Seen /hpf Urine Glucose 4+ H Normal mg/dL Urine Opiates Screen Neg NEGATIVE Urine Fentanyl Screen Neg NEGATIVE Urine Barbiturates Screen Neg NEGATIVE Urine Phencyclidine Screen Neg NEGATIVE Urine Amphetamines Screen Neg NEGATIVE Urine Benzodiazepines Screen Neg NEGATIVE Urine Cocaine Screen Neg NEGATIVE Urine Cannabinoids Screen Neg NEGATIVE POC Glucose 243 H 70-106 mg/dl White Blood Count 9.4 4.4-10.8 10^3/uL Red Blood Count 5.09 4.5-5.90 10^6/uL Hemoglobin 15.6 13.5-17.5 g/dL Hematocrit 44.6 # 41.0-53.0 % Mean Corpuscular Volume 87.7 80.0-100.0 fL Mean Corpuscular Hemoglobin 30.7 28.0-32.0 pg Mean Corpuscular Hemoglobin Concent 35.0 32.0-36.0 g/dL Red Cell Distribution Width 12.6 11.8-14.3 % Platelet Count 189 140-450 10^3/uL Mean Platelet Volume 8.5 6.9-10.8 fL Neutrophils (%) (Auto) 64.9 37.0-80.0 % Lymphocytes (%) (Auto) 24.3 10.0-50.0 % Monocytes (%) (Auto) 7.4 0.0-12.0 % Eosinophils (%) (Auto) 2.9 0.0-7.0 % Basophils (%) (Auto) 0.5 0.0-2.0 % Neutrophils # (Auto) 6.1 1.6-8.6 10 ^3/uL Lymphocytes # (Auto) 2.3 0.4-5.4 10 ^3/uL Monocytes # (Auto) 0.7 0-1.3 10 ^3/uL Eosinophils # (Auto) 0.3 0-0.8 10 ^3/uL Basophils # (Auto) 0 0-0.2 10 ^3/uL Nucleated Red Blood Cells 0.0 % Sodium Level 142 # 136-145 mmol/L Potassium Level 3.1 L 3.5-5.1 mmol/L Chloride Level 109 H 98-107 mmol/L Carbon Dioxide Level 24 20-31 mmol/L Anion Gap 9 5-15 Blood Urea Nitrogen 11 9-23 mg/dL Creatinine 0.82 0.700-1.30 mg/dL Glomerular Filtration Rate Calc 100 >90 mL/min BUN/Creatinine Ratio 13.4 10.0-20.0 Serum Glucose 172 #H 74-106 mg/dL Calcium Level 9.1 8.7-10.4 mg/dL Total Bilirubin 0.9 0.2-1.0 mg/dL Aspartate Amino Transferase (AST) 18 13-40 U/L Alanine Aminotransferase (ALT) 29 7-40 U/L Alkaline Phosphatase 55 46-116 U/L Total Protein 5.9 5.7-8.2 g/dL Albumin 3.7 3.2-4.8 g/dL Troponin I High Sensitivity < 3 L </=54 ng/L Test 02/14/24 11:03 Range/Units Hemoglobin A1c 12.9 H <5.7 % A1C Assessment Syncope, rule out cardiac etiology. Hypertension. Hyperlipidemia. Type 2 diabetes mellitus. Sleep apnea with CPAP use. Obesity. Plan/Recommendation I agree with your ongoing assessment and care of plan. Patient has been seen by Nimisha Mahajan NP on my behalf, her and I discussed the plan with the patient. Telemetry reviewed. Echocardiogram to evaluate cardiac function Bilateral carotid ultrasound: Negative for stenosis Orthostatic vital signs Cardiac surveillance: Notify of any arrhythmias Labs: TSH Additional plan as per the hospital course. Plan discussed with: Patient NYHA Physical activity limitations: NA Date of Service: Feb 15, 2024 Cardiology Common Codes: [id number] INP/OBS CARE (High) Cardiology Consultation Codes: [id number] CONSULT <45MIN DERIAN SIMS MD Feb 15, 2024 16:24
--- NOTE | 2024-02-15 23:54 | DVHPN2 ---
Subjective Patient appears to be improving, no further dizziness. Patient is still getting some dizziness with ambulating but able to ambulate by himself. Further workup needs to be done, needs to have orthostatic vitals, echo, cardiology consulted, PT eval needed,. We will keep patient admitted until all the workup is completed. And maintain on tele to eval for arrhythmias. Reviewed: H&P Changes from previous H/P or p: No Changes General: Per HPI Objective Vitals Vital Signs Date Time Temp Pulse Resp B/P (MAP) Pulse Ox O2 Delivery O2 Flow Rate FiO2 02/15/24 21:00 98.7 79 19 141/89 (106) 95 98.7 02/15/24 08:00 Room Air* 0 21 Intake/Output Intake and Output 02/15/24 07:00 Intake Total 820 ml Output Total 0 ml Balance 820 ml Intake Oral 320 ml IV Total 500 ml Output Urine Total 0 ml Exam GEN: Healthy appearing, well-developed, NAD. HEENT: NC/AT; MMM. CV: RRR, no m/r/g. LUNGS: CTAB, no w/r/c. ABD: Soft, NT/ND, NBS, no masses or organomegaly. EXT: skin Warm, well perfused. no rashes. No clubbing, cyanosis, or edema. NEURO: Ambulating with no limitations. No focal deficits. Medications Current Medications Medications Dose Ordered Sig/Graeme Route Start Time Stop Time Status Last Admin Dose Admin Sodium Chloride 1,000 ml @ 120 mls/hr Q8H20M IV 02/14/24 14:45 02/15/24 15:45 120 MLS/HR Ondansetron HCl 4 mg Q4HP PRN IV 02/14/24 14:45 Docusate Sodium 100 mg BIDPRN PRN PO 02/14/24 14:45 Morphine Sulfate 2 mg Q4HPRN PRN IV 02/14/24 14:45 02/14/24 21:31 2 MG Nitroglycerin 0.4 mg Q5MINP PRN SL 02/14/24 14:45 Diagnostic Test (Pha) 1 strip ACHS 02/14/24 17:00 02/15/24 22:41 1 STRIP Insulin Human Regular HS SC 02/14/24 22:00 02/15/24 22:43 4 UNITS Insulin Human Regular AC SC 02/14/24 17:00 02/15/24 17:18 3 UNITS Dextrose 50 ml UD PRN IV 02/14/24 14:45 Laboratory Results Laboratory Tests 02/15/24 07:00 Chemistry Test 02/15/24 07:00 Albumin 3.7 g/dL (3.2-4.8) Calcium Level 9.1 mg/dL (8.7-10.4) Total Protein 5.9 g/dL (5.7-8.2) LFT Test 02/15/24 07:00 Alanine Aminotransferase (ALT) 29 U/L (7-40) Alkaline Phosphatase 55 U/L (46-116) Aspartate Amino Transferase (AST) 18 U/L (13-40) Total Bilirubin 0.9 mg/dL (0.2-1.0) Urinalysis Test 02/15/24 12:00 Urine Color Light-yellow (Yellow) Urine Clarity Clear (Clear) Urine pH 6.0 (5.0-9.0) Urine Specific [place] 1.016 (1.001-1.035) Urine Protein Negative (Negative) Urine Ketones 1+ (Negative) H Urine Blood Negative /uL (Negative) Urine Nitrite Negative (Negative) Urine Bilirubin Negative (Negative) Urine Urobilinogen Normal mg/dL (Negative) Urine Leukocyte Esterase Negative /uL (Negative) Urine RBC None seen /hpf (0 - 3) Urine WBC 5 /hpf (0 - 3) Urine Squamous Epithelial Cells Few /hpf (<5) Urine Bacteria Few /hpf (None Seen) H Urine Glucose 4+ mg/dL (Normal) H Labs and/or images reviewed: Labs reviewed by me, Image(s) reviewed by me Assessment/Plan Assessment/Plan 02/14 update- Patient appears to be improving, no further dizziness. Patient is still getting some dizziness with ambulating but able to ambulate by himself. Further workup needs to be done, needs to have orthostatic vitals, echo, cardiology consulted, PT eval needed,. We will keep patient admitted until all the workup is completed. And maintain on tele to eval for arrhythmias. Assessment: Syncope Orthostasis likely Volume depletion likely Poorly controlled diabetes with hyperglycemia Hypokalemia Diabetic hyperglycemic diuresis plan: Further workup needs to be done, needs to have orthostatic vitals, echo, cardiology consulted, PT eval needed,. We will keep patient admitted until all the workup is completed. And maintain on tele to eval for arrhythmias. Diet diabetic DVT prophylaxis Lovenox subQ GI prophylaxis tolerating diet Med tele Full code Plan discussed with: Patient My Orders Orders - ABDELRAHMAN DE LEÓN MD Procedure Category Date Status Time Pt Request For Service PT 02/15/24 Logged 10:12 Urine Bacterial BERNARDA 02/15/24 In Process Culture 14:18 Date of Service: Feb 15, 2024 Billing Provider: ABDELRAHMAN DE LEÓN MD Common Visit Codes: [id number] INP/OBS CARE(HIGH) ABDELRAHMAN DE LEÓN MD Feb 15, 2024 23:54
[2024-02-16] VITALS (7 sets, daily range): BP systolic 126–154; BP diastolic 89–109; PULSE 62–84; RESP 16–18; TEMP 36.8; O2SAT 96–98
[2024-02-16 08:15] LABS: Basophils # (auto) 0 10 ^3/uL (0-0.2); Basophils % (auto) 0.4 % (0.0-2.0); Eosinophils # (auto) 0.3 10 ^3/uL (0-0.8); Eosinophils % (auto) 2.6 % (0.0-7.0); Hematocrit 48.7 % (41.0-53.0); Hemoglobin 16.8 g/dL (13.5-17.5); Lymphocytes # (auto) 2.5 10 ^3/uL (0.4-5.4); Lymphocytes % (auto) 22.7 % (10.0-50.0); Mean Corpuscular Hemoglobin 30.7 pg (28.0-32.0); Mean Corpuscular Hgb Conc. 34.6 g/dL (32.0-36.0); Mean Corpuscular Volume 88.9 fL (80.0-100.0); Monocytes # (auto) 0.7 10 ^3/uL (0-1.3); Monocytes % (auto) 6.6 % (0.0-12.0); Neutrophils # (auto) 7.4 10 ^3/uL (1.6-8.6); Neutrophils % (auto) 67.7 % (37.0-80.0); Platelet Count (auto) 208 10^3/uL (140-450); Red Blood Cells 5.48 10^6/uL (4.5-5.90); Red Cell Distribution Width 12.8 % (11.8-14.3)
[2024-02-16 08:43] LABS: Albumin 3.9 g/dL (3.2-4.8); Alkaline Phosphatase 61 U/L (46-116); Anion Gap 9 (5-15); Aspartate Aminotransferase 27 U/L (13-40); BUN/Creatinine Ratio 11.8 (10.0-20.0); Bilirubin, Total 0.8 mg/dL (0.2-1.0); Blood Urea Nitrogen 12 mg/dL (9-23); Calcium 9.9 mg/dL (8.7-10.4); Carbon Dioxide 24 mmol/L (20-31); Chloride 107 mmol/L (98-107); Cholesterol 103 mg/dL (< 200); LDL Cholesterol 50 mg/dL (< 100); Magnesium 1.8 mg/dL (1.6-2.6); Sodium 140 mmol/L (136-145); Triglycerides 141 mg/dL (< 150)
[2024-02-16 09:12] LABS: Alanine Aminotransferase 44 U/L (7-40); Glucose 174 mg/dL (74-106); HDL Cholesterol 35 mg/dL (40-59); Potassium 3.5 mmol/L (3.5-5.1)
[2024-02-16] MEDS: hydroCHLOROthiazide 25 MG TAB PO ONE (13:27)
[2024-02-16] MEDS: LISINOPRIL 20 MG TAB PO ONE (13:28)
[2024-02-16] MEDS ORDERED: INSU100I61 SC (14:21)
--- NOTE | 2024-02-16 14:26 | DVHDS2 ---
Discharge Summary Date of Admission Feb 14, 2024 at 14:44 Date of Discharge: Feb 16, 2024 Labs/Diagnostic Data: Laboratory Results Test 02/16/24 11:19 02/16/24 07:28 02/15/24 12:00 02/14/24 12:24 POC Glucose 227 mg/dl (70-106) White Blood Count 11.0 10^3/uL (4.4-10.8) Red Blood Count 5.48 10^6/uL (4.5-5.90) Hemoglobin 16.8 g/dL (13.5-17.5) Hematocrit 48.7 % (41.0-53.0) Mean Corpuscular Volume 88.9 fL (80.0-100.0) Mean Corpuscular Hemoglobin 30.7 pg (28.0-32.0) Mean Corpuscular Hemoglobin Concent 34.6 g/dL (32.0-36.0) Red Cell Distribution Width 12.8 % (11.8-14.3) Platelet Count 208 10^3/uL (140-450) Mean Platelet Volume 8.4 fL (6.9-10.8) Neutrophils (%) (Auto) 67.7 % (37.0-80.0) Lymphocytes (%) (Auto) 22.7 % (10.0-50.0) Monocytes (%) (Auto) 6.6 % (0.0-12.0) Eosinophils (%) (Auto) 2.6 % (0.0-7.0) Basophils (%) (Auto) 0.4 % (0.0-2.0) Neutrophils # (Auto) 7.4 10 ^3/uL (1.6-8.6) Lymphocytes # (Auto) 2.5 10 ^3/uL (0.4-5.4) Monocytes # (Auto) 0.7 10 ^3/uL (0-1.3) Eosinophils # (Auto) 0.3 10 ^3/uL (0-0.8) Basophils # (Auto) 0 10 ^3/uL (0-0.2) Nucleated Red Blood Cells 0.0 % Sodium Level 140 mmol/L (136-145) Potassium Level 3.5 mmol/L (3.5-5.1) Chloride Level 107 mmol/L (98-107) Carbon Dioxide Level 24 mmol/L (20-31) Anion Gap 9 (5-15) Blood Urea Nitrogen 12 mg/dL (9-23) Creatinine 1.02 mg/dL (0.700-1.30) Glomerular Filtration Rate Calc 84 mL/min (>90) BUN/Creatinine Ratio 11.8 (10.0-20.0) Serum Glucose 174 mg/dL (74-106) Calcium Level 9.9 mg/dL (8.7-10.4) Magnesium Level 1.8 mg/dL (1.6-2.6) Total Bilirubin 0.8 mg/dL (0.2-1.0) Aspartate Amino Transferase (AST) 27 U/L (13-40) Alanine Aminotransferase (ALT) 44 U/L (7-40) Alkaline Phosphatase 61 U/L (46-116) Total Protein 6.0 g/dL (5.7-8.2) Albumin 3.9 g/dL (3.2-4.8) Triglycerides Level 141 mg/dL (< 150) Cholesterol Level 103 mg/dL (< 200) LDL Cholesterol 50 mg/dL (< 100) HDL Cholesterol 35 mg/dL (40-59) Thyroid Stimulating Hormone (TSH) 1.33 uIU/mL (0.55-4.78) Urine Color Light-yellow (Yellow) Urine Clarity Clear (Clear) Urine pH 6.0 (5.0-9.0) Urine Specific [place] 1.016 (1.001-1.035) Urine Protein Negative (Negative) Urine Ketones 1+ (Negative) Urine Blood Negative /uL (Negative) Urine Nitrite Negative (Negative) Urine Bilirubin Negative (Negative) Urine Urobilinogen Normal mg/dL (Negative) Urine Leukocyte Esterase Negative /uL (Negative) Urine RBC None seen /hpf (0 - 3) Urine WBC 5 /hpf (0 - 3) Urine Squamous Epithelial Cells Few /hpf (<5) Urine Bacteria Few /hpf (None Seen) Urine Glucose 4+ mg/dL (Normal) Urine Opiates Screen Neg (NEGATIVE) Urine Fentanyl Screen Neg (NEGATIVE) Urine Barbiturates Screen Neg (NEGATIVE) Urine Phencyclidine Screen Neg (NEGATIVE) Urine Amphetamines Screen Neg (NEGATIVE) Urine Benzodiazepines Screen Neg (NEGATIVE) Urine Cocaine Screen Neg (NEGATIVE) Urine Cannabinoids Screen Neg (NEGATIVE) Troponin I High Sensitivity < 3 ng/L (</=54) Test 02/14/24 11:03 Hemoglobin A1c 12.9 % A1C (<5.7) Other Laboratory Tests 02/16/24 07:28 Brief Hx & Hospital Course: HPI: 63-year-old male past medical history hypertension diabetes back pain herniated disc surgical history tonsillectomy hernia surgery right knee replacement chief complaint patient states he went to breakfast with his daughter he had gotten his food and when he was sitting down he felt a little bit off he took a bite of the food and all son he started feeling dizziness he tried to get up and walk he he felt dizzy so he sat back at the table and he vomited 3 times at the table there was no blood in his vomitus and then he had a syncopal episode. hospitalization: CBC was unremarkable, troponin was negative x2, glucose was 317 , CT scan of the brain was unremarkable otherwise CBC and CMP unremarkable. Carotid Doppler without any significant stenosis. UA shows specific gravity 1.016, ketones, glucose 4+. Orthostatic vitals are negative, echo is unremarkable (EF 75%, normal valves, RVSP 23 mm Hg). PT eval done and patient does well and independent easily able to walk 40 ft. Patient's symptoms were likely from osmotic diuresis from hyperglycemia as patient has poorly controlled diabetes. Patient is stable for discharge as per plan below. Diagnosis: syncope due to orthostatis; intravascular volume depletion; poorly controlled diabetes with hyperglycemia; osmotic diuresis due to hyperglycemia; cardiogenic syncope, ruled out; Discharge plan.: -start [id number] mg daily, continue Lantus 10 units nightly, take NovoLog FlexPen3 units if pre meal blood glucose more than 180. - maintain diabetic diet, (low carbs) -Continue metformin 1000 mg twice daily -follow up with PCP to optimize blood glucose. Measure at least fasting glucose and lunch or dinner pre meal glucose, to allow PCP to optimize diabetes control. --hydrate well -continue the other home medications. Return to ED if symptoms return or worsen. Visitation and planning required 35 minutes Condition at Discharge: Fair Final Diagnosis/Problems List syncope due to orthostatis; intravascular volume depletion; poorly controlled diabetes with hyperglycemia; osmotic diuresis due to hyperglycemia; cardiogenic syncope, ruled out; Discharge Disposition: Home Discharge Instruct/Medications Diet: Consistent carbohydrate Activity: No Restrictions, As Tolerated Follow Up/Referral: PCP Medications: -start [id number] mg daily, continue Lantus 10 units nightly, take NovoLog FlexPen3 units if pre meal blood glucose more than 180. - maintain diabetic diet, (low carbs) -Continue metformin 1000 mg twice daily -follow up with PCP to optimize blood glucose. Measure at least fasting glucose and lunch or dinner pre meal glucose, to allow PCP to optimize diabetes control. --hydrate well -continue the other home medications. Return to ED if symptoms return or worsen. Discharge Statement: "Patient was advised to return to the ER or call 911 if any headaches, dizziness, shortness of breath, chest pain, abdominal pain, bleeding, fevers, or worsening of medical condition. Patient was counseled about treatment plan, medications, possible side effects, patientverbalized understanding. All questions were answered to the best of my ability. This discharge took greater then 30 minutes in planning, reviewing documentation, counseling the patient, and discussing with other team members." ASSESSMENT ASSESSMENT Assessment syncope due to orthostatis; intravascular volume depletion; poorly controlled diabetes with hyperglycemia; osmotic diuresis due to hyperglycemia; cardiogenic syncope, ruled out; Date of Service: Feb 16, 2024 Billing Provider: ABDELRAHMAN DE LEÓN MD Common Visit Codes: 54966-AJV/OBS DISCH DAY >30min ABDELRAHMAN DE LEÓN MD Feb 16, 2024 14:26
--- NOTE | 2024-02-16 22:06 | DVHPN2 ---
Progress Note - Dictate Date Seen: Feb 16, 2024 Medical Necessity Reason Pt with a Central, PICC or Fol: No Subjective Patient was seen and evaluated in follow up. Patient has no new complaints at this time. Echocardiogram shows an EF of 75%. Patient is cardiac stable for discharge. Telemetry reviewed. vital signs Vital Sign Date Time Temp Pulse Resp B/P (MAP) Pulse Ox O2 Delivery O2 Flow Rate FiO2 02/16/24 15:41 36.8 84 18 98 02/16/24 13:28 148/95 02/16/24 08:05 Room Air* 0 21 Total Intake and Output 02/15/24 02/15/24 02/16/24 15:00 23:00 07:00 Intake Total 840 ml 800 ml Balance 840 ml 800 ml objective GENERAL: Awake, alert, oriented. LUNGS: Clear. CARDIOVASCULAR: Heart sounds are good. ABDOMEN: Soft. laboratory and microbiology Laboratory Tests 02/16/24 07:28 Test 02/16/24 07:28 Range/Units Serum Glucose 174 H 74-106 mg/dL Problem List Syncope, rule out cardiac etiology. Hypertension. Hyperlipidemia. Type 2 diabetes mellitus. Sleep apnea with CPAP use. Obesity. Assessment/Plan Continued all current supportive medical care. Lisinopril. Nitro SL. Morphine for pain management. Additional plan as per the hospital course. Plan discussed with: Patient DERIAN SIMS MD Feb 16, 2024 19:06
[2024-02-17] MEDS ORDERED: LISINOPRIL 20 MG TAB PO SCH (10:00)
[2024-02-17] MEDS ORDERED: hydroCHLOROthiazide 25 MG TAB PO SCH (10:00)
== END 2024-02-16 16:12 | disposition home or self-care (01) | DRG 74 ==
LOC: ER 10:48 → EDBD 10:48 → OVERFLOW 14:44 → TELE 20:43 → TELE-WESTW 22:03
PROVIDERS: ADMIT Student in an Organized Health Care Education/Training Program; ATTEND Student in an Organized Health Care Education/Training Program
DX: G90.89 Other disorders of autonomic nervous system (principal); E11.65 Type 2 diabetes mellitus with hyperglycemia; E66.9 Obesity, unspecified; E78.5 Hyperlipidemia, unspecified; E87.6 Hypokalemia; G47.30 Sleep apnea, unspecified; G89.29 Other chronic pain; M10.9 Gout, unspecified; Z96.651 Presence of right artificial knee joint; E86.9 Volume depletion, unspecified; I10 Essential (primary) hypertension; Z68.29 Body mass index [BMI] 29.0-29.9, adult; Z79.4 Long term (current) use of insulin; Z79.84 Long term (current) use of oral hypoglycemic drugs
CPT/HCPCS: 36415; 70450; 80048; 80053; 80061; 80307; 81001; 82962; 83036; 83735; 84443; 84484; 85025; 87086; 93005; 93306; 93886; 96361; 96372; 96374; 96375; 97163; 99291; G0378; J1815

== ENCOUNTER 2024-03-30 13:23 | Emergency (ER) | payer OTHER ==
[~2024-03-30] VITALS: Ht 180.3 cm; Wt 81.8 kg
[~2024-03-30 13:23] MED LIST: INSU100I61 SC; METF-929 PO; SITA25TA3 PO
--- NOTE | 2024-03-30 14:22 | DVH ---
EXAM: XY L HIP COMPLETE XRAY CLINICAL HISTORY: hip pain COMPARISON: None TECHNIQUE: XY L HIP COMPLETE XRAY Findings/Impression: 2 views of the left hip with frontal view of the pelvis. There is no evidence of an acute fracture, dislocation, blastic, or lytic lesions. No radiopaque foreign bodies. No joint effusion or superficial soft tissue abnormalities.
[2024-03-30 15:01] VITALS: TEMP 97.6; O2SAT 99
--- NOTE | 2024-03-30 15:36 | ED.PDOC ---
Musculoskeletal HPI Comments 63 year old with chronic L hip pain presents flare up. Sees pain management tomorrow. Denies f/c/n/v/d. Chief Complaint: Lower Extremity Time Seen by MD: 13:59 Primary Care Provider: UNKNOWN Reviewed Notes: Nurses Notes, Medications, Allergies Allergies: Coded Allergies: NO KNOWN ALLERGIES (Unverified , 01/18/10) Home Meds Active Scripts Insulin Aspart (Novolog Flexpen Relion) 100 Unit/Ml Inj, 3 UNIT SC TIDPRN PRN for 30 Days, #1 INJ 1 Refill take 3u prn for pre-meal BG>180 Prov:ABDELRAHMAN DE LEÓN MD 02/16/24 Sitagliptin Phosphate (Januvia) 25 Mg Tab, 25 MG PO DAILY for 30 Days, #30 TAB 1 Refill Prov:ABDELRAHMAN DE LEÓN MD 02/15/24 Reported Medications Metformin HCl (Metformin Hydrochloride) 1,000 Mg Tab, 1000 MG PO BID, TAB 02/14/24 Information Source: Patient Mode of Arrival: EMS Past Medical History PAST MEDICAL HISTORY: DM, HTN Surgical History: Hernia Repair, Tonsillectomy Family History Family History: Family hx of Cancer Social History Smoker: Non-Smoker Alcohol: Occasionally Drugs: Denies Drug Use Lives In: Home All Other Systems: Reviewed and Negative (Per HPI) Physical Exam General Appearance: No Apparent Distress, Normal HEENT: Normal ENT Inspection, Pharynx Normal, TMs Normal Neck: Full Range of Motion, Non-Tender, Normal, Normal Inspection Respiratory: Chest Non-Tender, Lungs Clear, No Accessory Muscle Use, No Respiratory Distress, Normal Breath Sounds Cardiovascular: No Edema, No JVD, No Murmur, No Gallop, Normal Peripheral Pulses, Regular Rate/Rhythm Breast Exam: Deferred Gastrointestinal: No Organomegaly, Non Tender, No Pulsatile Mass, Normal Bowel Sounds, Soft Genitalia: Deferred Pelvic: Deferred Rectal: Deferred Extremities: No calf tenderness, Normal capillary refill, Normal inspection, Normal range of motion, Non-tender, No pedal edema Musculoskeletal : Location: Left Extremity Location: Hip (Left hip pain. No gross abnormality on inspection. No ecchymosis no open wounds no soft tissue swelling. Full range of motion. Full internal external rotation. No shortening of the leg) Apperance: Normal Neurologic: Alert, No Motor Deficits, Normal Affect, Normal Mood, No Sensory Deficits Cerebellar Function: Normal Reflexes: Normal Skin: Dry, Normal Color, Warm Lymphatic: No Adenopathy Was a procedure done? Was a procedure done?: No Differential Diagnosis EXT Differential Diagnosis: Fracture, Sprain X-Ray, Labs, Meds, VS Vital Signs Date Time Temp Pulse Resp B/P (MAP) Pulse Ox O2 Delivery O2 Flow Rate FiO2 03/30/24 16:15 79 20 137/71 03/30/24 15:01 97.6 79 18 162/103 (122) 99 97.6 03/30/24 15:01 79 18 99 Room Air 03/30/24 13:28 97.6 79 18 162/103 (122) 99 Current Medications Medications (Trade) Dose Ordered Sig/Graeme Route Start Time Stop Time Status Last Admin Morphine Sulfate 2 mg ONCE ONCE IM 03/30/24 15:30 03/30/24 15:31 DC 03/30/24 16:15 Time of 1ST Reevaluation: 17:30 Reevaluation 1ST: Improved Patient Education/Counseling: Diagnosis, Treatment Family Education/Counseling: Diagnosis, Treatment Departure 1 Departure Time of Disposition: 15:35 Impression: Primary Impression: Left hip pain Disposition: 01 HOME / SELF CARE / HOMELESS Condition: Stable Critical Care Note Critical Care Time?: No Stability Stability form required: No Heart Score Heart Score: Heart Score Response (Comments) Value History N/A 0 EKG N/A 0 Age N/A 0 Risk Factors N/A 0 Troponin N/A 0 Total 0 JATIN REYNOSO NP Mar 30, 2024 15:36
[2024-03-30 16:15] VITALS: BP 137/71; PULSE 79; RESP 20
[2024-03-30] MEDS: MORPHINE SULFATE INJ 2 MG/ml SYRG IM ONE (16:15)
== END 2024-03-30 16:26 | disposition home or self-care (01) ==
LOC: EDBD 13:23 → ER 13:23 → EDUNIT# 13:23 → ER 16:26
DX: M25.552 Pain in left hip (principal); E11.9 Type 2 diabetes mellitus without complications; I10 Essential (primary) hypertension; Z98.890 Other specified postprocedural states; Z90.89 Acquired absence of other organs; Z79.899 Other long term (current) drug therapy
CPT/HCPCS: 73502; 96372; 99283; J2270

== ENCOUNTER 2024-06-18 00:33 | Emergency (ER) | payer OTHER ==
[~2024-06-18] VITALS: Ht 180.3 cm; Wt 88.5 kg
--- NOTE | 2024-06-18 01:02 | ED.PDOC ---
History of Present Illness HPI Comments 63 y/o M, with a history of DM, HLD, and HTN, is BIBA from home for c/o unwitnessed syncope with fall. Per EMS report, patient's son called after he heart a thud from the next room and saw the patient unconscious, mcfp between his bathroom's floor and tub. Patient was suspected on passing out and sustaini ng a fall afterwards; was unconscious for, approximately, 1 minute in duration of time, with no recollection of series of events aside from waking up with abdominal pain and heading to the bathroom before waking up on the floor. No signs of trauma or pain endorsed. Patient was found with a blood glucose of 156 and a blood pressure of 80/50. Upon arrival, patient reports feeling weak, currently, and has a blood pressure of 107/72 after being given 250ml NS bolus by EMS en route. Denies any chest pain, shortness of breath, fever, or chills along with any recent additional ailments or injuries prior today. Chief Complaint: Syncope Time Seen by MD: 00:40 Primary Care Provider: UNKNOWN Reviewed Notes: Nurses Notes, Airport Ramp Supervisor Notes, Medications, Allergies Allergies: Coded Allergies: NO KNOWN ALLERGIES (Unverified , 01/18/10) Home Meds Active Scripts Insulin Aspart (Novolog Flexpen Relion) 100 Unit/Ml Inj, 3 UNIT SC TIDPRN PRN for 30 Days, #1 INJ 1 Refill take 3u prn for pre-meal BG>180 Prov:ABDELRAHMAN DE LEÓN MD 02/16/24 Sitagliptin Phosphate (Januvia) 25 Mg Tab, 25 MG PO DAILY for 30 Days, #30 TAB 1 Refill Prov:ABDELRAHMAN DE LEÓN MD 02/15/24 Reported Medications Metformin HCl (Metformin Hydrochloride) 1,000 Mg Tab, 1000 MG PO BID, TAB 02/14/24 Information Source: Patient, Emergency Med Personnel Mode of Arrival: EMS Severity: Moderate Timing: Hours Duration: Minutes Prehospital treatment: 12 Lead EKG, Accucheck (156), Medical Concierge, IVF (250ml normal saline ) Past Medical History PAST MEDICAL HISTORY: DM, High Lipids, HTN Past Medical History (Other): chronic back pain secondary to herniated disc Surgical History: Hernia Repair, Tonsillectomy Surgical History (Other): right knee replacement Family History Family History: Family hx of Cancer Social History Smoker: Non-Smoker Alcohol: Occasionally Drugs: Denies Drug Use Lives In: Home All Other Systems: Reviewed and Negative (Comprehensive systems review obtained and negative except for what is stated in the HPI.) Physical Exam General Appearance: No Apparent Distress, Normal HEENT: Normal ENT Inspection, Pharynx Normal, TMs Normal Neck: Full Range of Motion, Non-Tender, Normal, Normal Inspection Respiratory: Chest Non-Tender, Lungs Clear, No Accessory Muscle Use, No Respiratory Distress, Normal Breath Sounds Cardiovascular: No Edema, No JVD, No Murmur, No Gallop, Normal Peripheral Pulses, Regular Rate/Rhythm Breast Exam: Deferred Gastrointestinal: No Organomegaly, Non Tender, No Pulsatile Mass, Normal Bowel Sounds, Soft Genitalia: Deferred Pelvic: Deferred Rectal: Deferred Extremities: No calf tenderness, Normal capillary refill, Normal inspection, Normal range of motion, Non-tender, No pedal edema Musculoskeletal : Apperance: Normal Neurologic: Alert, legal billing clerk II-XII nml as Tested, No Motor Deficits, Normal Affect, Normal Mood, No Sensory Deficits Cerebellar Function: Normal Reflexes: Normal Skin: Dry, Normal Color, Warm Lymphatic: No Adenopathy Was a procedure done? Was a procedure done?: No Differential Dx Considerations may include: NEAR SYNCOPAL EPISODE, WEAKNESS, ELECTROLYTE IMBALANCE, AUTONOMIC DYSFUNCTION X-Ray, Labs, Meds, VS Vital Signs Date Time Temp Pulse Resp B/P (MAP) Pulse Ox O2 Delivery O2 Flow Rate FiO2 06/18/24 03:57 81 18 99 Room Air* 0 21 06/18/24 03:57 98.2 81 18 106/66 (79) 99 98.2 06/18/24 01:30 98.1 74 18 99/60 (73) 92 98.1 06/18/24 00:38 98.0 67 18 110/69 (83) 97 98.0 06/18/24 00:37 70 Lab Test 06/18/24 01:43 06/18/24 00:59 06/18/24 00:54 Range/Units Troponin I High Sensitivity 3 L 4 </=54 ng/L Sodium Level 143 136-145 mmol/L Potassium Level 3.4 L 3.5-5.1 mmol/L Chloride Level 102 98-107 mmol/L Carbon Dioxide Level 31 20-31 mmol/L Anion Gap 10 5-15 Blood Urea Nitrogen 21 9-23 mg/dL Creatinine 1.19 0.700-1.30 mg/dL Glomerular Filtration Rate Calc 70 >90 mL/min BUN/Creatinine Ratio 17.6 10.0-20.0 Serum Glucose 143 H 74-106 mg/dL Calcium Level 9.4 8.7-10.4 mg/dL Total Bilirubin 0.3 0.2-1.0 mg/dL Aspartate Amino Transferase (AST) 20 13-40 U/L Alanine Aminotransferase (ALT) 33 7-40 U/L Alkaline Phosphatase 48 46-116 U/L Total Protein 6.3 5.7-8.2 g/dL Albumin 4.3 3.2-4.8 g/dL White Blood Count 10.5 4.4-10.8 10^3/uL Red Blood Count 5.01 4.5-5.90 10^6/uL Hemoglobin 15.5 13.5-17.5 g/dL Hematocrit 43.9 41.0-53.0 % Mean Corpuscular Volume 87.6 80.0-100.0 fL Mean Corpuscular Hemoglobin 30.9 28.0-32.0 pg Mean Corpuscular Hemoglobin Concent 35.3 32.0-36.0 g/dL Red Cell Distribution Width 13.2 11.8-14.3 % Platelet Count 226 140-450 10^3/uL Mean Platelet Volume 8.6 6.9-10.8 fL Neutrophils (%) (Auto) 63.0 37.0-80.0 % Lymphocytes (%) (Auto) 24.6 10.0-50.0 % Monocytes (%) (Auto) 9.0 0.0-12.0 % Eosinophils (%) (Auto) 2.9 0.0-7.0 % Basophils (%) (Auto) 0.5 0.0-2.0 % Neutrophils # (Auto) 6.6 1.6-8.6 10 ^3/uL Lymphocytes # (Auto) 2.6 0.4-5.4 10 ^3/uL Monocytes # (Auto) 0.9 0-1.3 10 ^3/uL Eosinophils # (Auto) 0.3 0-0.8 10 ^3/uL Basophils # (Auto) 0.1 0-0.2 10 ^3/uL Nucleated Red Blood Cells 0.2 % Current Medications Medications (Trade) Dose Ordered Sig/Graeme Route Start Time Stop Time Status Last Admin Potassium Chloride (Klor-Con Tablet) 20 meq ONCE ONCE PO 06/18/24 02:45 06/18/24 02:46 DC 06/18/24 03:03 Time of 1ST Reevaluation: 01:10 Reevaluation 1ST: Unchanged Patient Education/Counseling: Diagnosis, Treatment Family Education/Counseling: No Family Present Departure 1 Departure Time of Disposition: 03:30 Impression: Primary Impression: Syncope and collapse Disposition: 01 HOME / SELF CARE / HOMELESS Condition: Stable Discharged With: Self Critical Care Note Critical Care Time?: No Stability Stability form required: No Heart Score Heart Score: Heart Score Response (Comments) Value History N/A 0 EKG N/A 0 Age N/A 0 Risk Factors N/A 0 Troponin N/A 0 Total 0 I personally scribed for ADELAIDE BRYANT MD ([email or web address]) on 06/18/24 at 01:02. Electronically submitted by Eric Vargas [email or web address]). ADELAIDE BRYANT MD June 18, 2024 01:02
[2024-06-18 01:19] LABS: Basophils # (auto) 0.1 10 ^3/uL (0-0.2); Basophils % (auto) 0.5 % (0.0-2.0); Eosinophils # (auto) 0.3 10 ^3/uL (0-0.8); Eosinophils % (auto) 2.9 % (0.0-7.0); Hematocrit 43.9 % (41.0-53.0); Hemoglobin 15.5 g/dL (13.5-17.5); Lymphocytes # (auto) 2.6 10 ^3/uL (0.4-5.4); Lymphocytes % (auto) 24.6 % (10.0-50.0); Mean Corpuscular Hemoglobin 30.9 pg (28.0-32.0); Mean Corpuscular Hgb Conc. 35.3 g/dL (32.0-36.0); Mean Corpuscular Volume 87.6 fL (80.0-100.0); Monocytes # (auto) 0.9 10 ^3/uL (0-1.3); Neutrophils # (auto) 6.6 10 ^3/uL (1.6-8.6); Nucleated Red Blood Cells % 0.2 %; Platelet Count (auto) 226 10^3/uL (140-450); Red Blood Cells 5.01 10^6/uL (4.5-5.90); Red Cell Distribution Width 13.2 % (11.8-14.3); White Blood Cell 10.5 10^3/uL (4.4-10.8)
[2024-06-18 01:27] LABS: Alanine Aminotransferase 33 U/L (7-40); Albumin 4.3 g/dL (3.2-4.8); Alkaline Phosphatase 48 U/L (46-116); Anion Gap 10 (5-15); Aspartate Aminotransferase 20 U/L (13-40); BUN/Creatinine Ratio 17.6 (10.0-20.0); Blood Urea Nitrogen 21 mg/dL (9-23); Calcium 9.4 mg/dL (8.7-10.4); Carbon Dioxide 31 mmol/L (20-31); Chloride 102 mmol/L (98-107); Sodium 143 mmol/L (136-145); Total Protein 6.3 g/dL (5.7-8.2)
[2024-06-18 01:32] LABS: Bilirubin, Total 0.3 mg/dL (0.2-1.0); Glucose 143 mg/dL (74-106); Potassium 3.4 mmol/L (3.5-5.1)
[2024-06-18] MEDS: POTASSIUM CHL 20 Meq TABLET PO ONE (03:03)
--- NOTE | 2024-06-18 03:21 | DVH ---
EXAM: CT HEAD WITHOUT CONTRAST INDICATION: syncope, disoriented possible head inj TECHNIQUE: CT of the head without intravenous contrast. Radiation Dose : 1. Head: CT Dose: CTDI volume is 64.7 mGy. Dose-length product is 1166.26 mGy*cm The dose indicators for CT are the volume Computed Tomography (CT) Dose Index (CTDIvol) and the Dose Length Product (DLP), and are measured in units of mGy and mGy-cm, respectively. These indicators are not patient dose, but values generated from the CT scanner acquisition factors. The report includes radiation exposure data for exposures received during this examination. COMPARISON: CT HEAD WITHOUT CONTRAST on DOS: 02/14/24 FINDINGS: There is no evidence of acute intracranial hemorrhage, extra-axial collection, mass effect, midline s hift, herniation or hydrocephalus. Chronic appearing lacunar infarcts within the right basal ganglia. The ventricles, sulci and cisterns are age appropriate. The arboleda-white differentiation is intact. Patchy periventricular and subcortical white matter hypoattenuation is nonspecific but may be related to small vessel ischemic disease. Right maxillary and ethmoid mucosal sinus disease. The remaining visualized paranasal sinuses and ma stoid air cells are clear. The surrounding soft tissues and osseous structures are unremarkable. IMPRESSION: 1. No acute intracranial abnormality. 2. Mild chronic sequelae of microvascular disease and chronic appearing right basal ganglia lacunar i nfarcts. Radiation optimization: All CT scans at this facility use at least one of these dose optimization raj hniques: automated exposure control mA and/or kV adjustment per patient size (includes targeted exam s where dose is matched to clinical indication) or iterative reconstruction.
[2024-06-18 03:57] VITALS: BP 106/66; PULSE 81; RESP 18; TEMP 98.2; O2SAT 99
--- NOTE | 2024-06-19 09:49 | ECG ---
[facility] Test Date: 2024-06-18 Test Time: 00:37:45 Pat Name: ABDIRAHMAN SANTO Department: ED Room: Gender: M Guide Escort: cornelius : 1960 Requested By: ADELAIDE BRYANT Order Number: [id number] Reading MD: Alonzo Ashby Measurements Intervals [place] Rate: 70 P: 93 IL: 209 QRS: 109 QRSD: 98 T: 57 QT: 413 QTc: 446 Interpretive Statements Sinus rhythm Right axis deviation Abnormal R-wave progression, late transition Baseline wander in lead(s) I,II,aVR,aVF Electronically Signed On 06-19-2024 13:13:05 PDT by Alonzo Ashby Please click the below link to view image of tracing.
== END 2024-06-18 04:06 | disposition home or self-care (01) ==
LOC: ER 00:33 → EDBD 00:33 → ER 04:06
DX: R55 Syncope and collapse (principal); E11.9 Type 2 diabetes mellitus without complications; E78.5 Hyperlipidemia, unspecified; I10 Essential (primary) hypertension; G89.29 Other chronic pain; M54.9 Dorsalgia, unspecified; Z90.89 Acquired absence of other organs; Z96.651 Presence of right artificial knee joint; Z98.890 Other specified postprocedural states; Z79.84 Long term (current) use of oral hypoglycemic drugs; Z79.899 Other long term (current) drug therapy
CPT/HCPCS: 36415; 70450; 80053; 84484; 85025; 93005

== ENCOUNTER 2024-08-11 19:36 | Inpatient (IN) | payer OTHER ==
[~2024-08-11] VITALS: Ht 180.3 cm; Wt 88.9 kg
[2024-08-11] MEDS: INSULIN LANTUS (GLARGINE) 1 /0.01ml (100units/ml) SC ONE (06:12)
--- NOTE | 2024-08-11 20:28 | ED.PDOC ---
History of Present Illness HPI Comments Patient is a 63-year-old male with a past medical history of type 2 diabetes mellitus, hypertension, hyperlipidemia, sleep apnea was brought to the ED with a chief complaint of chest pain that has been going on for the last 2-3 weeks. Patient reported that he has been having chest pain for the last 3 weeks across the whole chest, occurred at rest, pressure-like, nonradiating intermittent episodes of severe pain and reports that in the last 4-5 days it has gotten progressively worse following which she called the EMS today. EMS reported that on arrival patient had a blood pressure of 155/76 mmHg, ECG showed sinus rhythm. Patient denied any cough or phlegm in the last week. Patient does report of feeling mild shortness of breath and orthopnea. Denied any previous history of MO. Chief Complaint: Chest Pain Time Seen by MD: 19:38 Primary Care Provider: UNKNOWN Allergies: Coded Allergies: NO KNOWN ALLERGIES (Unverified , 01/18/10) Home Meds Active Scripts Insulin Aspart (Novolog Flexpen Relion) 100 Unit/Ml Inj, 3 UNIT SC TIDPRN PRN for 30 Days, #1 INJ 1 Refill take 3u prn for pre-meal BG>180 Prov:ABDELRAHMAN DE LEÓN MD 02/16/24 Sitagliptin Phosphate (Januvia) 25 Mg Tab, 25 MG PO DAILY for 30 Days, #30 TAB 1 Refill Prov:ABDELRAHMAN DE LEÓN MD 02/15/24 Reported Medications Metformin HCl (Metformin Hydrochloride) 1,000 Mg Tab, 1000 MG PO BID, TAB 02/14/24 Mode of Arrival: EMS Prehospital treatment: 12 Lead EKG Past Medical History PAST MEDICAL HISTORY: DM, High Lipids, HTN Past Medical History (Other): Sleep apnea Surgical History: Hernia Repair, Tonsillectomy Family History Family History: Family hx of Cancer Social History Smoker: Non-Smoker Alcohol: Occasionally Drugs: Denies Drug Use Lives In: Home Constitutional: reports: fatigue EENTM: denies: blurred vision, double vision, ear bleeding, ear discharge, ear drainage, ear pain, ear ringing, eye pain, eye redness, hearing loss, mouth pain, mouth swelling, nasal discharge, nose bleeding, nose congestion, nose pain, photophobia, tearing, throat pain, throat swelling, voice changes, others Respiratory: reports: orthopnea, shortness of breath Cardiovascular: reports: chest pain, Dyspnea on exertion Gastrointestinal: denies: abdomen distended, abdominal pain, blood streaked bowels, constipated, diarrhea, dysphagia, difficulty swallowing, hematemesis, melena, nausea, poor appetite, poor fluid intake, rectal bleeding, rectal pain, vomiting, others Genitourinary: denies: burning, dysuria, flank pain, frequency, hematuria, incontinence, penile discharge, penile sore, pain, testicle pain, testicle swelling, urgency, others Neurological: denies: dizziness, fainting, headache, left sided numbness, left sided weakness, numbness, paresthesia, pre-existing deficit, right sided numbness, right sided weakness, seizure, speech problems, tingling, tremors, weakness, others Musculoskeletal: denies: back pain, gout, joint pain, joint swelling, muscle pain, muscle stiffness, neck pain, others Integumetry: denies: bruises, change in color, change in hair/nails, dryness, laceration, lesions, lumps, rash, wounds, others Allergic/Immunocompromised: denies: Difficulty Healing, Frequent Infections, Hives, Itching, others Hematologic/Lymphatic: denies: anemia, blood clots, easy bleeding, easy bruising, swollen glands, others Endocrine: denies: excessive hunger, excessive sweating, excessive thirst, excessive urination, flushing, intolerance to cold, intolerance to heat, unexplained weight gain, unexplained weight loss, others Psychiatric: denies: anxiety, bipolar disorder, depression, hopeless, panic disorder, schizophrenia, sleepless, suicidal, others Physical Exam General Appearance: Mild Distress HEENT: Normal ENT Inspection, Pharynx Normal, TMs Normal Neck: Full Range of Motion, Non-Tender, Normal, Normal Inspection Respiratory: No Accessory Muscle Use, No Respiratory Distress, Normal Breath Sounds, Rales (Bilateral right more than left) Cardiovascular: No Edema, No JVD, No Murmur, No Gallop, Normal Peripheral Pulses, Regular Rate/Rhythm Breast Exam: Deferred Gastrointestinal: No Organomegaly, Non Tender, No Pulsatile Mass, Normal Bowel Sounds, Soft Genitalia: Deferred Pelvic: Deferred Rectal: Deferred Extremities: No calf tenderness, Normal capillary refill, Normal inspection, Normal range of motion, Non-tender, No pedal edema Neurologic: Alert, care program director II-XII nml as Tested, No Motor Deficits, Normal Affect, Normal Mood, No Sensory Deficits Cerebellar Function: Normal Reflexes: Normal Skin: Dry, Normal Color, Warm Peripheral Pulses: 2+ carotid (R), 2+ carotid (L), 2+ femoral (R), 2+ femoral (L), 2+ dorsalis pedis (R), 2+ dorsalis pedis (L), 2+ Radial (R), 2+ Radial (L) Lymphatic: No Adenopathy Was a procedure done? Was a procedure done?: No EKG EKG : Pulse Rate (adult): [address] [place]: LAD Cardiac Rhythm: NSR Block: None Hypertrophy: None ST: Normal Differential Dx Considerations may include: angina, chest wall pain, costochondritis, pneumonitis X-Ray, Labs, Meds, VS Vital Signs Date Time Temp Pulse Resp B/P (MAP) Pulse Ox O2 Delivery O2 Flow Rate FiO2 08/11/24 20:28 84 08/11/24 19:42 97.4 77 18 155/76 (102) 100 97.4 08/11/24 19:40 82 Lab Test 08/11/24 20:45 Range/Units White Blood Count 12.3 H 4.4-10.8 10^3/uL Red Blood Count 5.53 4.5-5.90 10^6/uL Hemoglobin 17.1 13.5-17.5 g/dL Hematocrit 49.2 41.0-53.0 % Mean Corpuscular Volume 88.9 80.0-100.0 fL Mean Corpuscular Hemoglobin 30.8 28.0-32.0 pg Mean Corpuscular Hemoglobin Concent 34.7 32.0-36.0 g/dL Red Cell Distribution Width 13.3 11.8-14.3 % Platelet Count 221 140-450 10^3/uL Mean Platelet Volume 8.7 6.9-10.8 fL Neutrophils (%) (Auto) 67.3 37.0-80.0 % Lymphocytes (%) (Auto) 22.4 10.0-50.0 % Monocytes (%) (Auto) 7.2 0.0-12.0 % Eosinophils (%) (Auto) 2.6 0.0-7.0 % Basophils (%) (Auto) 0.5 0.0-2.0 % Neutrophils # (Auto) 8.2 1.6-8.6 10 ^3/uL Lymphocytes # (Auto) 2.8 0.4-5.4 10 ^3/uL Monocytes # (Auto) 0.9 0-1.3 10 ^3/uL Eosinophils # (Auto) 0.3 0-0.8 10 ^3/uL Basophils # (Auto) 0.1 0-0.2 10 ^3/uL Nucleated Red Blood Cells 0.1 % Sodium Level 144 136-145 mmol/L Potassium Level 3.3 L 3.5-5.1 mmol/L Chloride Level 108 H 98-107 mmol/L Carbon Dioxide Level 25 20-31 mmol/L Anion Gap 11 5-15 Blood Urea Nitrogen 20 9-23 mg/dL Creatinine 0.79 0.700-1.30 mg/dL Glomerular Filtration Rate Calc 101 >90 mL/min BUN/Creatinine Ratio 25.3 H 10.0-20.0 Serum Glucose 130 H 74-106 mg/dL Calcium Level 10.4 8.7-10.4 mg/dL Troponin I High Sensitivity < 3 L </=54 ng/L B-Type Natriuretic Peptide Pending Patient is a 63-year-old male with a past medical history of type 2 diabetes mellitus, hypertension, hyperlipidemia was brought into the ED via EMS with a chief complaint of chest pain. Patient reported of typical chest pain, ECG showed sinus rhythm without any acute ST or T-wave changes, troponin level was within normal limits and with risk factors not limited to diabetes, hypertension, hyperlipidemia, patient is being admitted for further inpatient management and risk stratification. Time of 1ST Reevaluation: 21:00 Reevaluation 1ST: Unchanged Patient Education/Counseling: Diagnosis, Treatment Family Education/Counseling: No Family Present SEPSIS Sepsis Screen Date sepsis recognized/suspect: Aug 11, 2024 Time Sepsis recognized/suspect: 1944 Recent Procedure: No On Antibiotic Therapy: No Respiratory Rate >20: No Heart Rate >90: No Temp<36 C (96.8 F) or >38.3 C: No SBP <90 or MAP <65 mmHG: No New Acute Mental Status Change: No Is the patient on CPAP, BIPAP,: No Physician Orders B-Type Natriuretic Peptide (08/11/24 20:01) Electrocardigram (08/11/24 21:01) Troponin-I Hs (08/11/24 21:01) Troponin-I Hs (08/11/24 23:01) Chest Xray 1 View (08/11/24 20:01) Drug Screen (08/11/24 20:01) Vital Signs Date Time Temp Pulse Resp B/P (MAP) Pulse Ox O2 Delivery O2 Flow Rate FiO2 08/11/24 20:28 84 08/11/24 19:42 97.4 77 18 155/76 (102) 100 97.4 08/11/24 19:40 82 Laboratory Tests Test 08/11/24 20:45 White Blood Count 12.3 10^3/uL (4.4-10.8) H Departure 1 Departure Time of Disposition: 21:50 Impression: Primary Impression: Chest pain Additional Impressions: Musculoskeletal chest pain Angina pectoris Disposition: ADMITTED INPATIENT Condition: Stable Critical Care Note Critical Care Time?: No Stability Stability form required: No Heart Score Heart Score: Heart Score Response (Comments) Value History Moderate Suspicious 1 EKG Normal 0 Age 45-64 1 Risk Factors >3 or Hx ASHD 2 Troponin Normal limit 0 Total 4 IQRA MCCLOUD RESIDENT Aug 11, 2024 20:28
[2024-08-11 21:11] LABS: Hematocrit 49.2 % (41.0-53.0); Hemoglobin 17.1 g/dL (13.5-17.5); Mean Corpuscular Hemoglobin 30.8 pg (28.0-32.0); Mean Corpuscular Volume 88.9 fL (80.0-100.0); Nucleated Red Blood Cells % 0.1 %; Sodium 144 mmol/L (136-145)
[2024-08-11 21:12] LABS: Anion Gap 11 (5-15); Calcium 10.4 mg/dL (8.7-10.4); Carbon Dioxide 25 mmol/L (20-31); Chloride 108 mmol/L (98-107); Potassium 3.3 mmol/L (3.5-5.1)
--- NOTE | 2024-08-11 21:14 | DVH ---
CHEST RADIOGRAPH Indication: SOB, orthopnea Technique: Single frontal view of the chest was obtained Comparison: None FINDINGS/IMPRESSION: The lungs are clear. The cardiomediastinal silhouette is unremarkable. No pleural effusion or pneumo thorax. No acute osseous abnormality.
[2024-08-11 21:17] LABS: BUN/Creatinine Ratio 25.3 (10.0-20.0); Blood Urea Nitrogen 20 mg/dL (9-23)
[2024-08-11 21:23] LABS: Glucose 130 mg/dL (74-106)
[2024-08-11] MEDS ORDERED: NITROGLYCERIN 0.4 MG SL TAB SL PRN (23:15)
--- NOTE | 2024-08-11 23:24 | DVHHP2 ---
History of Present Illness History of Present Illness This is a 63-year-old male with past medical history of DM2, HTN, Sleep apnea non-compliant with CPAP machine, Lumbar disc bulging came to ED with the complain of chest pain associated with SOB for last few weeks which is worsen last two days feeling tightness of the chest, 8-9/10, intermittent, radiation to back, aggravated on lying back position, mild relief on lateral decubitus, tried oxycodone and Tylenol he was prescribed by pain medicine doctors but does not helps a lot. Patient was history of unwitnessed fall two months ago but denies any trauma/injury on head or chest. CT head on 06/2024- No acute intracranial abnormality. Mild chronic sequelae of microvascular disease and chronic appearing right basal ganglia lacunar infarcts. Patient visited pain medicine x3 months ago due to low back pain and is started oxycodone and Robaxin. Patient unable to tolerate oxycodone in prescribed dose then he was started half of the dose. Since then, patient gradually feeling loss of appetite, generalized weakness, nausea. Patient had history of fall 20 yrs ago and hurt on his back. Currently denies any headache, cough, visual disturbance, abdo dinora pain, diarrhea, vomiting, any focal weakness. PAST MEDICAL HISTORY: DM2, HTN, Sleep apnea non-compliant with CPAP machine, Lumbar disc bulging Surgical History: Hernia Repair, Tonsillectomy, bilateral carpal tunnels surgery Medicine: Metformin 1000 mg, sitagliptin 25 mg, hydrocodone- acetaminophen 10- 325 mg, lisinopril-HCTZ 20-25 mg, atorvastatin 40 mg, NovoLog insulin, Lantus insulin, venlafaxine 37.5 mg. Family History: Family hx of Cancer, further diagnosed with HOCM Smoker: Non-Smoker, Alcohol: Occasionally, use THC Drugs: Denies Drug Use Lives In: Home ALLERGY: No known allergy PCP: Unknown Review of Systems Constitutional: Yes: Weakness; No: Fever, Chills, Sweats, Malaise, Other Eyes: No: Pain, Vision change, Conjunctivae inflammation, Eyelid inflammation, Other, Redness ENT: No: Ear pain, Ear discharge, Nose pain, Nose discharge, Nose congestion, Mouth pain, Mouth swelling, Throat pain, Throat swelling, Other Respiratory: Shortness of breath; No: Cough, Dry, SOB with excertion, Wheezing, Hemoptysis, Pleuritic Pain, Sputum, Wheezing, Other Cardiovascular: Chest Pain; No: Palpitations, Orthopnea, Paroxysmal Noc. Dyspnea, Edema, Lt Headedness, Other Gastrointestinal: Nausea; No: Vomiting, Abdominal Pain, Diarrhea, Constipation, Melena, Hematochezia, Other Genitourinary: No Dysuria, No Frequency, No Incontinence, No Hematuria, No Retention, No Other Musculoskeletal: No: other, neck pain, shoulder pain, arm pain, back pain, hand pain, leg pain, foot pain Skin: No: Rash, Lesions, Jaundice, Bruising, Other Neurological: No: Weakness, Numbness, Incoordination, Change in speech, C onfusion, Seizures, Other Allergies: Coded Allergies: NO KNOWN ALLERGIES (Unverified , 01/18/10) Medications Current Medications Medications Dose Ordered Sig/Graeme Route Start Time Stop Time Status Last Admin Dose Admin Nitroglycerin 0.4 mg Q5MINP PRN SL 08/11/24 23:15 Morphine Sulfate 2 mg Q30M PRN IV 08/11/24 23:15 Pantoprazole Sodium 40 mg DAILY@0600 PO 08/12/24 06:00 UNV Insulin Glargine 10 units ACHS SC 08/12/24 07:00 UNV Insulin Human Lispro 5 units AC SC 08/12/24 07:00 UNV Enoxaparin Sodium 30 mg DAILY SC 08/12/24 10:00 UNV Exam Vital Signs Vital Signs Date Time Temp Pulse Resp B/P (MAP) Pulse Ox O2 Delivery O2 Flow Rate FiO2 08/11/24 20:28 84 08/11/24 19:42 97.4 18 155/76 (102) 100 97.4 General Appearance: Alert, Oriented X3, Cooperative, mild distress HEENT: PERRLA, EOMI, Mucous membr. moist/pink Respiratory: Clear to auscultation, Normal air movement Cardiovascular: Regular rate, Normal S1, Normal S2, Other (Tenderness present on deep palpation lt side of the chest) Abdominal: Normal bowel sounds, Soft, No tenderness, No hepatospenomegaly Extremities: No clubbing, No cyanosis, No edema, Normal pulses Skin: No rashes, No breakdown Neuro: Normal speech, Strength at 5/5 X4 ext Labs/Xrays Labs Test 08/11/24 22:19 08/11/24 20:45 Range/Units Troponin I High Sensitivity < 3 L </=54 ng/L White Blood Count 12.3 H 4.4-10.8 10^3/uL Red Blood Count 5.53 4.5-5.90 10^6/uL Hemoglobin 17.1 13.5-17.5 g/dL Hematocrit 49.2 41.0-53.0 % Mean Corpuscular Volume 88.9 80.0-100.0 fL Mean Corpuscular Hemoglobin 30.8 28.0-32.0 pg Mean Corpuscular Hemoglobin Concent 34.7 32.0-36.0 g/dL Red Cell Distribution Width 13.3 11.8-14.3 % Platelet Count 221 140-450 10^3/uL Mean Platelet Volume 8.7 6.9-10.8 fL Neutrophils (%) (Auto) 67.3 37.0-80.0 % Lymphocytes (%) (Auto) 22.4 10.0-50.0 % Monocytes (%) (Auto) 7.2 0.0-12.0 % Eosinophils (%) (Auto) 2.6 0.0-7.0 % Basophils (%) (Auto) 0.5 0.0-2.0 % Neutrophils # (Auto) 8.2 1.6-8.6 10 ^3/uL Lymphocytes # (Auto) 2.8 0.4-5.4 10 ^3/uL Monocytes # (Auto) 0.9 0-1.3 10 ^3/uL Eosinophils # (Auto) 0.3 0-0.8 10 ^3/uL Basophils # (Auto) 0.1 0-0.2 10 ^3/uL Nucleated Red Blood Cells 0.1 % Sodium Level 144 136-145 mmol/L Potassium Level 3.3 L 3.5-5.1 mmol/L Chloride Level 108 H 98-107 mmol/L Carbon Dioxide Level 25 20-31 mmol/L Anion Gap 11 5-15 Blood Urea Nitrogen 20 9-23 mg/dL Creatinine 0.79 0.700-1.30 mg/dL Glomerular Filtration Rate Calc 101 >90 mL/min BUN/Creatinine Ratio 25.3 H 10.0-20.0 Serum Glucose 130 H 74-106 mg/dL Calcium Level 10.4 8.7-10.4 mg/dL B-Type Natriuretic Peptide 4.21 0-100 pg/mL Assessment/Plan Assessment/Plan # Chest pain rule out ACS -patient came with SOB, chest pain -on examination, tenderness present on deep palpation left side of the chest -received [id number] mg ER -CXR: No cardiopulmonary abnormality -Troponin3 and repeat troponin<3 -BNP 4.21 -Echo (02/19/2024)LV EF IS 75% AND IS NORMAL, NORMAL VALVES, RVSP IS 23 MM OF HG AND IS NORMAL -EKG(06/19/2024)-HR 70, QTc 446, EKG 08/2024-HR , QTc 573. -Labs shows leukocytosis (WBC-12.3) but no left shift likely pain.monitor CBC. -Aspirin 81 mg p.o. daily -Atorvastatin 40 mg p.o. daily -Pantoprazole 40 mg p.o. daily -HBA1c, lipid profile, TSH, UA, UDS pending. -Tylenol 650 mg po q6h PRN # Hypokalemia likely use of diuretics -on admission serum potassium 3.3 -potassium chloride 40 mg p.o. given -we will follow BMP --Hold HCTZ # Type 2 Diabetes mellitus with hyperglycemia - HBA1C 12.9 on 02/14/2024 -continue Lantus 10 units subcutaneous intubate team -continue lispro 5 units before meal -monitor blood sugar AC -order HbA1c # Hyperlipidemia -continue atorvastatin 40 mg p.o. daily -lipid profile ordered # Obstructive sleep apnea -patient was diagnosed with SRUTHI but noncompliant with CPAP machine # Chronic low back pain -Home medication Robaxin 500 mg, oxycodone 5 mg resume home meds after assessment -order Tylenol 650 mg p.o. has not yet for pain # ESSENTIAL HYPERTENSION -DASH diet -Continue lisinopril 20 mg daily -Hold hydrochlorothiazide for hypokalemia -MONITOR BLOOD PRESSURE #Diet-diabetic diet # GI prophylaxis: Pantoprazole 40 mg p.o. daily # DVT prophylaxis: Lovenox 30 units SC daily Goals of care discussions, more than 26 minutes spent. Full code status. Case discussed with Dr. Nunez Plan discussed with: Patient, Other (Nurse) My Orders Orders - MAGALY PEREZ RESIDENT Procedure Category Date Status Time Admit ADMIT 08/11/24 Transmitted 23:03 Nitroglycerin PHA 08/11/24 In Process Sublingual (Ntrostat 23:15 Morphine Sulfate PHA 08/11/24 In Process Injection 23:15 Oxygen By Nasal RT 08/11/24 Transmitted Cannula 23:03 Stat Ekg For Chest [facility] 08/11/24 In Process Pain 23:03 Notify Of Changes [facility] 08/11/24 In Process From Base 23:03 Corporate Accountant For [facility] 08/11/24 In Process 24 Hours 23:03 Emergency Dysrhythmia [facility] 08/11/24 In Process Protocol 23:03 Rhythm Strips Once [facility] 08/11/24 In Process Every Shift 23:03 Aspirin Tablet PHA 08/12/24 Logged 10:00 Pantoprazole Tablet PHA 08/12/24 Logged (Protonix Tablet) 06:00 Consistent DIET 08/12/24 Transmitted Carb(Ccho)Diabetes Breakfast Insulin Lantus PHA 08/12/24 Logged (Glargine) (Lantus) 07:00 Insulin Lantus PHA 08/11/24 Logged (Glargine) (Lantus) 23:15 Insulin Lispro PHA 08/12/24 Logged (Human) (Humalog) 07:00 Accu Check [employer] Teacher To [facility] 08/11/24 In Process Or (Nurs 23:08 Electrocardigram EKG 08/11/24 Logged 23:08 Urinalysis LAB 08/11/24 Logged 23:08 Drug Screen LAB 08/11/24 Logged 23:08 Enoxaparin Sodium PHA 08/11/24 Logged (Lovenox) 23:15 Enoxaparin Sodium PHA 08/12/24 Logged (Lovenox) 10:00 Date of Service: Aug 11, 2024 Billing Provider: LENI NUNEZ MD Common Visit Codes: [id number] INP/OBS CARE (HIGH) Secondary Visit Codes: [id number] CARE PLAN 30 MINUTES MAGALY PEREZ Aug 11, 2024 23:24
[2024-08-12] MEDS ORDERED: ACETAMINOPHEN 325 MG TAB PO PRN (00:15)
[2024-08-12 01:43] LABS: Cholesterol 161 mg/dL (< 200)
[2024-08-12 01:44] LABS: HDL Cholesterol 34 mg/dL (40-59); Triglycerides 509 mg/dL (< 150)
[2024-08-12] MEDS: ENOXAPARIN SOD 30 MG/0.3 ML SYRINGE SC ONE (06:17)
[2024-08-12] MEDS: PANTOPRAZOLE 40 MG TAB PO SCH (06:17)
[2024-08-12] MEDS: POTASSIUM CHL 20 Meq TABLET PO ONE ×2 (06:18→12:55)
[2024-08-12] MEDS: INSULIN LISPRO (HUMAN) 100 UNITS/ML ML SC SCH (06:29)
[2024-08-12] MEDS ORDERED: InsuLIN REG 1unit/0.01ml Soln (100units/ml) SC ONE (06:30)
[2024-08-12] MEDS: DEXTROSE (50%) 50ML SYRG IV ONE (06:33)
--- NOTE | 2024-08-12 06:35 | ECG ---
[facility] Test Date: 2024-08-11 Test Time: 19:40:43 Pat Name: ABDIRAHMAN GOUT Department: ED Room: [address] [place] [address] Gender: M Chemical Pathologist: ASHLEY : 1960 Requested By: IQRA MCCLOUD Order Number: [id number] Reading MD: Alonzo Ashby Measurements Intervals [place] Rate: 82 P: 43 [place]: 204 QRS: -60 QRSD: 91 T: 41 QT: 490 QTc: 573 Interpretive Statements Sinus rhythm Probable left atrial enlargement Left anterior fascicular block Abnormal R-wave progression, late transition Borderline T abnormalities, anterior leads Prolonged QT interval Electronically Signed On 08-14-2024 18:59:10 PDT by Alonzo Ashby Please click the below link to view image of tracing.
[2024-08-12] MEDS: ACCU-CHEK COMFORT CURVE STRIP VI ONE (06:40)
[2024-08-12] MEDS: ACCU-CHEK COMFORT CURVE STRIP VI SCH (06:40)
[2024-08-12] MEDS ORDERED: INSULIN LANTUS (GLARGINE) 1 /0.01ml (100units/ml) SC SCH (07:00)
[2024-08-12] MEDS: MORPHINE SULFATE INJ 2 MG/ml SYRG IV PRN (08:20)
[2024-08-12] MEDS: LISINOPRIL 20 MG TAB PO SCH (08:38)
[2024-08-12 10:11] LABS: Hematocrit 45.9 % (41.0-53.0); Hemoglobin 15.9 g/dL (13.5-17.5); Mean Corpuscular Hemoglobin 30.9 pg (28.0-32.0); Mean Corpuscular Volume 89.4 fL (80.0-100.0); Nucleated Red Blood Cells % 0.1 %
[2024-08-12 10:18] LABS: Chloride 105 mmol/L (98-107); Sodium 141 mmol/L (136-145)
[2024-08-12 10:19] LABS: Anion Gap 9 (5-15); Carbon Dioxide 27 mmol/L (20-31)
[2024-08-12 10:20] LABS: Calcium 10.1 mg/dL (8.7-10.4); Potassium 3.3 mmol/L (3.5-5.1)
[2024-08-12 10:25] LABS: BUN/Creatinine Ratio 14.6 (10.0-20.0); Blood Urea Nitrogen 13 mg/dL (9-23)
[2024-08-12 10:26] LABS: Glucose 200 mg/dL (74-106)
[2024-08-12 13:30] VITALS: BP 141/92; PULSE 77; RESP 19; O2SAT 100
[2024-08-12 15:03] LABS: Urine Protein, UAD Negative (Negative)
[2024-08-12 15:13] LABS: Cannabinoid Screen, Urine Pos (NEGATIVE); Opiate Scree,Urine Neg (NEGATIVE)
[2024-08-12 15:16] LABS: Amphetamine Screen, Urine Neg (NEGATIVE); Barbiturate Scree,Urine Neg (NEGATIVE); Benzodiazephine Screen, Urine Pos (NEGATIVE); Cocaine Screen, Urine Neg (NEGATIVE); Phencyclidine Screen, Urine Neg (NEGATIVE)
--- NOTE | 2024-08-12 15:55 | DVHPNRES ---
Progress Note Date Seen: Aug 12, 2024 Resident Creating Document: ERIC MCBRIDE RESIDENT Medical Necessity Reason Pt with a Central, PICC or Fol: No Subjective Review of Systems . History of Present Illness This is a 63-year-old male with past medical history of DM2, HTN, Sleep apnea non-compliant with CPAP machine, Lumbar disc bulging came to ED with the complain of chest pain associated with SOB for last few weeks which is worsen last two days feeling tightness of the chest, 8-9/10, intermittent, radiation to back, aggravated on lying back position, mild relief on lateral decubitus, tried oxycodone and Tylenol he was prescribed by pain medicine doctors but does not helps a lot. Patient was history of unwitnessed fall two months ago but denies any trauma/injury on head or chest. CT head on 06/2024- No acute intracranial abnormality. Mild chronic sequelae of microvascular disease and chronic appearing right basal ganglia lacunar infarcts. Patient visited pain medicine x3 months ago due to low back pain and is started oxycodone and Robaxin. Patient unable to tolerate oxycodone in prescribed dose then he was started half of the dose. Since then, patient gradually feeling loss of appetite, generalized weakness, nausea. Patient had history of fall 20 yrs ago and hurt on his back. Currently denies any headache, cough, visual disturbance, abdominal pain, diarrhea, vomiting, any focal weakness. PAST MEDICAL HISTORY: DM2, HTN, Sleep apnea non-compliant with CPAP machine, Lumbar disc bulging Surgical History: Hernia Repair, Tonsillectomy, bilateral carpal tunnels surgery Medicine: Metformin 1000 mg, sitagliptin 25 mg, hydrocodone- acetaminophen 10- 325 mg, lisinopril-HCTZ 20-25 mg, atorvastatin 40 mg, NovoLog insulin, Lantus insulin, venlafaxine 37.5 mg. Family History: Family hx of Cancer, further diagnosed with HOCM Smoker: Non-Smoker, Alcohol: Occasionally, use THC Drugs: Denies Drug Use Lives In: Home ALLERGY: No known allergy PCP: Unknown 08/12 interval events The patient reports his chest pain 8/10. He reports he has right leg pain, rating 10/10. He has no tingling, numbness, no bowel and bladder incontinence. The patient reports oxycodone helps with the pain but it makes him sleepless. Melatonin helps with the sleep. The patient also reports he takes [id number] potassium pills, for his hypokalemia. The patient reports loss of appetite, probably related to oxycodone. The patient currently denies any headache, shortness of breath,fever, chills or any other complaints at this time. Insert Review of systems: Patient was seen and examined at the bedside. Review of Systems as per HPI. No new complaints reported. Rest of the ROS is negative. Objective vital signs Vital Sign Date Time Temp Pulse Resp B/P (MAP) Pulse Ox O2 Delivery O2 Flow Rate FiO2 08/12/24 13:30 77 19 100 Room Air* 0 21 08/12/24 13:30 141/92 (108) 08/12/24 05:12 97.5 97.5 medications Current Medications Medications Dose Ordered Sig/Graeme Route Start Time Stop Time Status Last Admin Dose Admin Nitroglycerin 0.4 mg Q5MINP PRN SL 08/11/24 23:15 Morphine Sulfate 2 mg Q30M PRN IV 08/11/24 23:15 08/12/24 08:20 2 MG Pantoprazole Sodium 40 mg DAILY@0600 PO 08/12/24 06:00 08/12/24 06:17 40 MG Enoxaparin Sodium 30 mg DAILY SC 08/13/24 10:00 Cancel Lisinopril 40 mg DAILY PO 08/12/24 10:00 08/12/24 08:38 40 MG Acetaminophen 650 mg Q6HP PRN PO 08/12/24 00:15 Diagnostic Test (Pha) 1 strip ACHS 08/12/24 07:00 08/12/24 12:52 1 STRIP Atorvastatin Calcium 40 mg HS PO 08/12/24 22:00 Enoxaparin Sodium 40 mg DAILY SC 08/13/24 10:00 Examination General Appearance: Alert, Oriented X3, Cooperative, mild distress HEENT: PERRLA, EOMI, Mucous membr. moist/pink Respiratory: Clear to auscultation, Normal air movement Cardiovascular: Regular rate, Normal S1, Normal S2, Other (Tenderness present on deep palpation) Abdominal: Normal bowel sounds, Soft, No tenderness, No hepatospenomegaly Extremities: No clubbing, No cyanosis, No edema, Normal pulses Skin: No rashes, No breakdown Neuro: Normal speech, Strength at 5/5 X4 ext laboratory and microbiology Laboratory Tests 08/12/24 09:40 Test 08/12/24 09:40 Range/Units Serum Glucose 200 H 74-106 mg/dL Labs and/or images reviewed: Labs reviewed by me, Image(s) reviewed by me (RN) Problem List/Assessment/Plan Problem List/Assessment/Plan # Chest pain ruled out ACS likely musculoskeletal # ? costochondritis -CXR: No cardiopulmonary abnormality -Troponin3 and repeat troponin<3 -Echo (02/19/2024)LV EF IS 75% AND IS NORMAL, NORMAL VALVES, RVSP IS 23 MM OF HG AND IS NORMAL -EKG(06/19/2024)-HR 70, QTc 446, EKG 08/2024-HR , QTc 573. -Aspirin 81 mg p.o. daily -Atorvastatin 40 mg p.o. daily -Pantoprazole 40 mg p.o. daily # chronic bilateral knee pain -following up with Orthopedics on outpatient -physical therapy on outpatient -[place] 5 mg p.r.n. added # Hypokalemia likely use of diuretics -on admission serum potassium 3.3 -potassium chloride 40 mg p.o. given -we will follow BMP -Hold HCTZ # Type 2 Diabetes mellitus with hyperglycemia - HBA1C 12.9 on 02/14/2024 -continue Lantus 10 units subcutaneous intubate team -continue lispro 5 units before meal -monitor blood sugar AC -order HbA1c # Hyperlipidemia -continue atorvastatin 40 mg p.o. daily -lipid profile ordered # Obstructive sleep apnea -patient was diagnosed with SRUTHI but noncompliant with CPAP machine # ESSENTIAL HYPERTENSION -DASH diet -Continue lisinopril 20 mg daily -Hold hydrochlorothiazide for hypokalemia -MONITOR BLOOD PRESSURE #Diet-diabetic diet # GI prophylaxis: Pantoprazole 40 mg p.o. daily # DVT prophylaxis: Lovenox 30 units SC daily Goals of care discussed with the patient for more than 27 minutes: Full code status Case discussed with Dr. Arenas, patient and the nurse Plan discussed with: Patient My Orders My Orders Orders - ERIC MCBRIDE Procedure Category Date Status Time Comprehensive LAB 08/13/24 Verified Metabolic Panel 04:00 Date of Service: Aug 12, 2024 Billing Provider: LUIZA ARENAS MD Common Visit Codes: [id number] INP/OBS CARE(HIGH) ERIC MCBRIDE Aug 12, 2024 15:55 KAUSHAL RAO RESIDENT Aug 12, 2024 17:07 LUIZA ARENAS MD Aug 12, 2024 23:38
[2024-08-12 17:00] VITALS: BP 150/82; PULSE 75; RESP 18; TEMP 98.9; O2SAT 96
[2024-08-12] MEDS: ATORVASTATIN 20 MG TAB PO SCH (20:15)
[2024-08-12] MEDS: HYDROcodone-ACET 5/325MG TAB PO PRN (20:15)
[2024-08-12 20:58] VITALS: BP 141/87; PULSE 81; RESP 16; TEMP 98.1; O2SAT 97
[2024-08-12] MEDS: MELATONIN 5 MG TAB PO ONE (21:40)
[2024-08-12] MEDS: IBUPROFEN 600 MG TAB PO ONE (23:45)
[2024-08-13 00:40] VITALS: PULSE 70; RESP 19
[2024-08-13 04:20] LABS: Hematocrit 46.3 % (41.0-53.0); Hemoglobin 16.3 g/dL (13.5-17.5); Mean Corpuscular Hemoglobin 31.4 pg (28.0-32.0); Mean Corpuscular Volume 89.3 fL (80.0-100.0); Nucleated Red Blood Cells % 0.1 %
[2024-08-13 04:31] LABS: Alanine Aminotransferase 40 U/L (7-40); Albumin 4.3 g/dL (3.2-4.8); Alkaline Phosphatase 48 U/L (46-116); Anion Gap 9 (5-15); BUN/Creatinine Ratio 14.4 (10.0-20.0); Blood Urea Nitrogen 17 mg/dL (9-23); Calcium 9.4 mg/dL (8.7-10.4); Carbon Dioxide 29 mmol/L (20-31); Chloride 104 mmol/L (98-107); Potassium 3.8 mmol/L (3.5-5.1); Sodium 142 mmol/L (136-145); Total Protein 6.5 g/dL (5.7-8.2)
[2024-08-13 04:32] LABS: Bilirubin, Total 0.4 mg/dL (0.2-1.0)
[2024-08-13 04:34] LABS: Glucose 178 mg/dL (74-106)
[2024-08-13 05:18] VITALS: BP 150/91; PULSE 75; RESP 19; TEMP 97.7; O2SAT 96
[2024-08-13 09:18] VITALS: BP 154/95; PULSE 80; RESP 13; TEMP 98; O2SAT 95
[2024-08-13] MEDS ORDERED: ENOXAPARIN SOD 30 MG/0.3 ML SYRINGE SC SCH (10:00)
[2024-08-13] MEDS ORDERED: ENOXAPARIN SOD 40 MG/0.4 ML SYRINGE SC SCH (10:00)
--- NOTE | 2024-08-13 17:01 | DVHSR ---
APPROVED REPORT EXAM: Two-dimensional and M-mode echocardiogram with Doppler and color Doppler. Blood Pressure: 141/92 mmHg INDICATION Chest Pain RISK FACTORS Height: 5'11, Weight: 195 DIMENSIONS LVDd4.0 (3.8-5.7cm)LA (2D)3.4 (1.9-4.0cm)Aortic Root3.8 (2.0-3.7cm) LVDs2.5 (2.5-4.0cm)LA (MM) (1.9-4.0cm)Aortic Cusp Exc2.2 (1.5-2.0cm) EF (%) 65.0 (55-70%)Rt. Atrium3.1 (1.9-4.0cm)Asc. Aorta3.8 cm IVSd1.4 (0.7-1.1cm)RV (D)4.3 (1.8-2.4cm) PWd1.2 (0.7-1.1cm) Mitral Valve MitralMitral Stenosis E wave0.37m/sMV Mean GR.mmHg A wave0.66m/sMV Peak GR.89mmHg E/A ratio0.62D MVAcm2 DECEL [id number] 1/2 [place] Aortic Valve Aortic ValveAortic Stenosis V10.86m/Martha Mean GR.2mmHg V20.91m/Martha Peak GR.3mmHg LVOT Diameter2.3 (1.8-2.4cm)Doppler AVA3.92cm2 Pulmonic Valve V20.89m/s Tricuspid Valve TR Velocity2.86m/s [id number] Conclusion LVEF 55-60%, mild LVH RV mildly dilated, normal funtion no significant valve disease
--- NOTE | 2024-08-13 17:05 | DVHDSRES ---
Discharge Summary Date of Admission Resident Creating Document: ERIC MCBRIDE Aug 11, 2024 at 23:03 Date of Discharge: Aug 13, 2024 Admitting Diagnosis Chest pain ruled out ACS Knee pain due to arthritis Labs/Diagnostic Data: Laboratory Results Test 08/13/24 03:49 08/12/24 21:06 08/12/24 14:35 08/12/24 09:40 White Blood Count 9.7 10^3/uL (4.4-10.8) Red Blood Count 5.19 10^6/uL (4.5-5.90) Hemoglobin 16.3 g/dL (13.5-17.5) Hematocrit 46.3 % (41.0-53.0) Mean Corpuscular Volume 89.3 fL (80.0-100.0) Mean Corpuscular Hemoglobin 31.4 pg (28.0-32.0) Mean Corpuscular Hemoglobin Concent 35.2 g/dL (32.0-36.0) Red Cell Distribution Width 13.4 % (11.8-14.3) Platelet Count 203 10^3/uL (140-450) Mean Platelet Volume 8.6 fL (6.9-10.8) Neutrophils (%) (Auto) 65.0 % (37.0-80.0) Lymphocytes (%) (Auto) 23.2 % (10.0-50.0) Monocytes (%) (Auto) 7.8 % (0.0-12.0) Eosinophils (%) (Auto) 3.4 % (0.0-7.0) Basophils (%) (Auto) 0.6 % (0.0-2.0) Neutrophils # (Auto) 6.3 10 ^3/uL (1.6-8.6) Lymphocytes # (Auto) 2.2 10 ^3/uL (0.4-5.4) Monocytes # (Auto) 0.8 10 ^3/uL (0-1.3) Eosinophils # (Auto) 0.3 10 ^3/uL (0-0.8) Basophils # (Auto) 0.1 10 ^3/uL (0-0.2) Nucleated Red Blood Cells 0.1 % Sodium Level 142 mmol/L (136-145) Potassium Level 3.8 mmol/L (3.5-5.1) Chloride Level 104 mmol/L (98-107) Carbon Dioxide Level 29 mmol/L (20-31) Anion Gap 9 (5-15) Blood Urea Nitrogen 17 mg/dL (9-23) Creatinine 1.18 mg/dL (0.700-1.30) Glomerular Filtration Rate Calc 70 mL/min (>90) BUN/Creatinine Ratio 14.4 (10.0-20.0) Serum Glucose 178 mg/dL (74-106) Calcium Level 9.4 mg/dL (8.7-10.4) Total Bilirubin 0.4 mg/dL (0.2-1.0) Aspartate Amino Transferase (AST) 24 U/L (13-40) Alanine Aminotransferase (ALT) 40 U/L (7-40) Alkaline Phosphatase 48 U/L (46-116) Total Protein 6.5 g/dL (5.7-8.2) Albumin 4.3 g/dL (3.2-4.8) POC Glucose 219 mg/dl (70-106) Urine Color Light-yellow (Yellow) Urine Clarity Clear (Clear) Urine pH 6.5 (5.0-9.0) Urine Specific [place] 1.016 (1.001-1.035) Urine Protein Negative (Negative) Urine Ketones Negative (Negative) Urine Blood Negative /uL (Negative) Urine Nitrite Negative (Negative) Urine Bilirubin Negative (Negative) Urine Urobilinogen Normal mg/dL (Negative) Urine Leukocyte Esterase Negative /uL (Negative) Urine RBC <1 /hpf (0 - 3) Urine Microscopic WBC 1 /HPF (0-3) Urine Squamous Epithelial Cells Few /hpf (<5) Urine Bacteria None seen /hpf (None Seen) Urine Glucose 2+ mg/dL (Normal) Urine Opiates Screen Neg (NEGATIVE) Urine Fentanyl Screen Neg (NEGATIVE) Urine Barbiturates Screen Neg (NEGATIVE) Urine Phencyclidine Screen Neg (NEGATIVE) Urine Amphetamines Screen Neg (NEGATIVE) Urine Benzodiazepines Screen Pos (NEGATIVE) Urine Cocaine Screen Neg (NEGATIVE) Urine Cannabinoids Screen Pos (NEGATIVE) Magnesium Level 1.9 mg/dL (1.6-2.6) Test 08/12/24 00:23 08/11/24 20:45 Troponin I High Sensitivity < 3 ng/L (</=54) Hemoglobin A1c 6.1 % A1C (<5.7) B-Type Natriuretic Peptide 4.21 pg/mL (0-100) Triglycerides Level 509 mg/dL (< 150) Cholesterol Level 161 mg/dL (< 200) LDL Cholesterol mg/dL (< 100) HDL Cholesterol 34 mg/dL (40-59) Thyroid Stimulating Hormone (TSH) 1.40 uIU/mL (0.55-4.78) Other Laboratory Tests 08/13/24 03:49 Brief Hx & Hospital Course: 63-year-old male with past medical history of type 2 diabetes, hypertension, sleep apnea noncompliant with CPAP admission, lumbar disc bulging came to ED with the complaints of chest pain associated shortness of breath for last few weeks, feeling tense of the chest, intensity 9/10. Radiates to the back aggravated on lying back. The patient had a severe leg pain intensity 10/10. The pain was not associated with weakness or paresthesia. The patient denies any bowel and bladder incontinence. The patient was evaluated with imaging in the, BNP EKG and echocardiogram was planned. For anemia and cardiac causes of chest pain were ruled out. Ovidio oxycodone and Arnold was administered with effective pain control. No acute findings are noted on chest imaging. Patient remained hemodynamically stable throughout the hospitalization no new focal deficits noted. No signs of DVT or embolic events. Pulses are present and symmetric. The patient chest pain and knee pain we are still treating but treatment not been completed but patient wants to leave against medical advice, despite explaining risks of leaving AMA he left. patient made verbalized understanding. No physical examination was done because patient left AMA Condition at Discharge: Undetermined Final Diagnosis/Problems List Chest pain ruled out ACS Chronic bilateral knee pain Hypokalemia likely use of diuretics Type 2 diabetes mellitus with hyperglycemia Hyperlipidemia Obstructive sleep apnea Discharge Disposition: AMA Discharge Instruct/Medications Diet: Regular, Cardiac 2g Na,low cholest Activity: No Restrictions, As Tolerated Scheduled Metformin HCl (Metformin Hydrochloride), 1,000 MG PO BID, (Reported) Sitagliptin Phosphate (Januvia), 25 MG PO DAILY Scheduled PRN Insulin Aspart (Novolog Flexpen Relion), 3 UNIT SC TIDPRN PRN Discharge Statement: "Patient was advised to return to the ER or call 911 if any headaches, dizziness, shortness of breath, chest pain, abdominal pain, bleeding, fevers, or worsening of medical condition. Patient was counseled about treatment plan, medications, possible side effects, patientverbalized understanding. All questions were answered to the best of my ability. This discharge took greater then 30 minutes in planning, reviewing documentation, counseling the patient, and discussing with other team members." ASSESSMENT ASSESSMENT Assessment Date of Service: Aug 13, 2024 Billing Provider: LUIZA WELCH MD Common Visit Codes: 25273-PBV/OBS DISCH DAY >30min REED,ERIC RESIDENT Aug 13, 2024 17:05 LUIZA WELCH MD Aug 14, 2024 08:09
== END 2024-08-13 09:30 | disposition left against medical advice (07) | DRG 311 ==
LOC: EDBD 19:36 → ER 19:38 → OVERFLOW 23:03
PROVIDERS: ADMIT Internal Medicine; ATTEND Internal Medicine
DX: I20.9 Angina pectoris, unspecified (principal); E87.6 Hypokalemia; E11.65 Type 2 diabetes mellitus with hyperglycemia; E78.5 Hyperlipidemia, unspecified; G47.33 Obstructive sleep apnea (adult) (pediatric); G89.29 Other chronic pain; I10 Essential (primary) hypertension; M10.9 Gout, unspecified; Z79.899 Other long term (current) drug therapy; Z79.84 Long term (current) use of oral hypoglycemic drugs; Z79.4 Long term (current) use of insulin; Z82.49 Family history of ischemic heart disease and other diseases of the circulatory system; Z91.199 Patient's noncompliance with other medical treatment and regimen due to unspecified reason; T50.2X5A Adverse effect of carbonic-anhydrase inhibitors, benzothiadiazides and other diuretics, initial encounter; Y92.89 Other specified places as the place of occurrence of the external cause
CPT/HCPCS: 36415; 71045; 80048; 80053; 80061; 80307; 81001; 82962; 83036; 83735; 83880; 84443; 84484; 85025; 93005; 93306; G0378; J1815

== ENCOUNTER 2024-11-21 01:22 | Inpatient (IN) | payer OTHER ==
[2024-11-21] VITALS (65 sets, daily range): BP systolic 107–148; BP diastolic 67–98; PULSE 66–88; RESP 9–25; TEMP 97.5–98.7; O2SAT 92–100
[~2024-11-21] VITALS: Ht 180.3 cm; Wt 92.4 kg
--- NOTE | 2024-11-21 01:28 | ECG ---
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
[2024-11-21] MEDS ORDERED: HEPARIN SODIUM (PORCINE) 5000 UNITS/ML 1ML VIAL IV ONE ×2 (01:30)
[2024-11-21] MEDS: SODIUM CHLORIDE 0.9% 1,000 ML IV ONE (01:30)
--- NOTE | 2024-11-21 01:33 | ED.PDOC ---
HPI Comments 64-year-old male was BIBA to the ER for the chief complaint of STEMI and syncopal episode. Per EMS, patient was in the bathroom, was having a hard time urinating, was experiencing dizziness and lightheadedness and experienced a fall, patient passed out for almost 3 minutes. On arrival of EMS, patient was A&O x4, pulse was in 50s, blood pressure systolic 80s, EKG was completed which showed STEMI. Patient denied any chest pain. Reported abdominal pain and suprapubic pain, and inability to urinate. On arrival, heart rate was 60bpm, and patient was requiring 4 L of NC supplementation. Last echocardiogram 55-60% August 2024 EKG was completed on arrival which showed ST-elevation in lead 2, 3, AVF with reciprocal changes in aVL, V1, V2, V3. Cardiology was consulted - Dr Ashby confirmed STEMI, and patient was scheduled for left heart catheterization KOURTNEY Past medical history: hypertension, diabetes, back pain - herniated disc, Past surgical history tonsillectomy hernia surgery right knee replacement Chief Complaint: STEMI Time Seen by MD: 01:26 Primary Care Provider: UNKNOWN Allergies: Coded Allergies: NO KNOWN ALLERGIES (Unverified , 01/18/10) Home Meds Active Scripts Insulin Aspart (Novolog Flexpen Relion) 100 Unit/Ml Inj, 3 UNIT SC TIDPRN PRN for 30 Days, #1 INJ 1 Refill take 3u prn for pre-meal BG>180 Prov:ABDELRAHMAN DE LEÓN MD 02/16/24 Sitagliptin Phosphate (Januvia) 25 Mg Tab, 25 MG PO DAILY for 30 Days, #30 TAB 1 Refill Prov:ABDELRAHMAN DE LEÓN MD 02/15/24 Reported Medications Metformin HCl (Metformin Hydrochloride) 1,000 Mg Tab, 1000 MG PO BID, TAB 02/14/24 Past Medical History PAST MEDICAL HISTORY: DM, High Lipids, HTN Surgical History: Hernia Repair, Tonsillectomy Family History Family History: Family hx of Cancer Social History Smoker: Non-Smoker Alcohol: Occasionally Drugs: Denies Drug Use Lives In: Home Constitutional: reports: diaphoresis, weakness EENTM: denies: blurred vision, double vision, ear bleeding, ear discharge, ear drainage, ear pain, ear ringing, eye pain, eye redness, hearing loss, mouth pain, mouth swelling, nasal discharge, nose bleeding, nose congestion, nose pain, photophobia, tearing, throat pain, throat swelling, voice changes, others Respiratory: denies: cough, hemoptysis, orthopnea, SOB at rest, shortness of breath, SOB with excertion, stridor, wheezing, others Cardiovascular: reports: dizzy spells, diaphoresis, syncope Gastrointestinal: reports: abdominal pain Genitourinary: reports: urgency Neurological: reports: dizziness, fainting Musculoskeletal: denies: back pain, gout, joint pain, joint swelling, muscle pain, muscle stiffness, neck pain, others Integumetry: denies: bruises, change in color, change in hair/nails, dryness, laceration, lesions, lumps, rash, wounds, others Allergic/Immunocompromised: denies: Difficulty Healing, Frequent Infections, Hives, Itching, others Hematologic/Lymphatic: denies: anemia, blood clots, easy bleeding, easy bruising, swollen glands, others Endocrine: denies: excessive hunger, excessive sweating, excessive thirst, excessive urination, flushing, intolerance to cold, intolerance to heat, unexplained weight gain, unexplained weight loss, others Psychiatric: denies: anxiety, bipolar disorder, depression, hopeless, panic disorder, schizophrenia, sleepless, suicidal, others Physical Exam General Appearance: Mild Distress HEENT: NOT DONE Neck: NOT DONE Respiratory: Decreased Breath Sounds, No Accessory Muscle Use, No Respiratory Distress, Rales Cardiovascular: Bradycardia, Regular Rate/Rhythm Breast Exam: Deferred Gastrointestinal: Diffuse, Suprapubic, Tenderness Genitalia: Deferred Pelvic: Deferred Rectal: Deferred Extremities: No calf tenderness, Normal capillary refill, Normal inspection, Normal range of motion, Non-tender, No pedal edema Neurologic: Alert, NOT DONE Cerebellar Function: NOT DONE Reflexes: NOT DONE Skin: Dry Lymphatic: NOT DONE EKG EKG : Cardiac Rhythm: ST ST: Inf, Infarct Was a procedure done? Was a procedure done?: No CP Differential Dx Differential Diagnosis: Angina, Anxiety / Panic Attack, AV Block 2nd Degree, AV Block 3rd Degree, Electrolyte Disorder, Heart Failure, CT, PVC's Differential Diagnosis: Myocardial Infarction, Pericarditis X-Ray, Labs, Meds, VS Vital Signs Date Time Temp Pulse Resp B/P (MAP) Pulse Ox O2 Delivery O2 Flow Rate FiO2 11/21/24 01:30 98.1 72 12 105/66 (79) 99 98.1 11/21/24 01:30 Nasal Cannula* 4 36 11/21/24 01:30 72 11/21/24 01:22 98.1 48 20 90/58 98 98.1 11/21/24 01:22 60 Lab Test 11/21/24 01:30 Range/Units White Blood Count 13.2 H 4.4-10.8 10^3/uL Red Blood Count 5.24 4.5-5.90 10^6/uL Hemoglobin 16.1 13.5-17.5 g/dL Hematocrit 46.3 41.0-53.0 % Mean Corpuscular Volume 88.3 80.0-100.0 fL Mean Corpuscular Hemoglobin 30.8 28.0-32.0 pg Mean Corpuscular Hemoglobin Concent 34.9 32.0-36.0 g/dL Red Cell Distribution Width 12.9 11.8-14.3 % Platelet Count 252 140-450 10^3/uL Mean Platelet Volume 8.6 6.9-10.8 fL Neutrophils (%) (Auto) 54.7 37.0-80.0 % Lymphocytes (%) (Auto) 33.2 10.0-50.0 % Monocytes (%) (Auto) 8.1 0.0-12.0 % Eosinophils (%) (Auto) 3.3 0.0-7.0 % Basophils (%) (Auto) 0.7 0.0-2.0 % Neutrophils # (Auto) 7.2 1.6-8.6 10 ^3/uL Lymphocytes # (Auto) 4.4 0.4-5.4 10 ^3/uL Monocytes # (Auto) 1.1 0-1.3 10 ^3/uL Eosinophils # (Auto) 0.4 0-0.8 10 ^3/uL Basophils # (Auto) 0.1 0-0.2 10 ^3/uL Nucleated Red Blood Cells 0.1 % Prothrombin Time 10.4 9.3-11.8 sec Prothrombin Time INR 0.98 0.9-1.15 Activated Partial Thromboplast Time 22.6 L 24.5-34.5 SEC Sodium Level 142 136-145 mmol/L Potassium Level 3.4 L 3.5-5.1 mmol/L Chloride Level 104 98-107 mmol/L Carbon Dioxide Level 26 20-31 mmol/L Anion Gap 12 5-15 Blood Urea Nitrogen 18 9-23 mg/dL Creatinine 1.23 0.700-1.30 mg/dL Glomerular Filtration Rate Calc 66 >90 mL/min BUN/Creatinine Ratio 14.6 10.0-20.0 Serum Glucose 217 H 74-106 mg/dL Lactic Acid Level 2.5 *H 0.4-2.0 mmol/L Calcium Level 9.3 8.7-10.4 mg/dL Magnesium Level 2.0 1.6-2.6 mg/dL Total Bilirubin 0.2 0.2-1.0 mg/dL Aspartate Amino Transferase (AST) 28 13-40 U/L Alanine Aminotransferase (ALT) 32 7-40 U/L Alkaline Phosphatase 47 46-116 U/L Troponin I High Sensitivity 16 </=54 ng/L B-Type Natriuretic Peptide 2.08 0-100 pg/mL Total Protein 6.2 5.7-8.2 g/dL Albumin 4.0 3.2-4.8 g/dL Triglycerides Level 788 H < 150 mg/dL Cholesterol Level 183 < 200 mg/dL LDL Cholesterol < 100 mg/dL HDL Cholesterol 30 L 40-59 mg/dL Thyroid Stimulating Hormone (TSH) 2.52 0.55-4.78 uIU/mL Current Medications Medications (Trade) Dose Ordered Sig/Graeme Route Start Time Stop Time Status Last Admin Clopidogrel Bisulfate (Plavix) 300 mg ONCE ONCE PO 11/21/24 01:30 11/21/24 01:31 DC 11/21/24 01:35 Heparin Sodium (Porcine) 2,500 units ONCE ONCE IV 11/21/24 01:30 11/21/24 01:31 DC 11/21/24 01:35 X-Ray, Labs, Meds, VS Comment Chest x-ray shows Cardiac silhouette is borderline in size. Slight prominence of the pulmonary vasculature. No dense focal airspace disease. No significant pleural effusions. Bones and soft tissues demonstrate no significant abnormality. 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) Consultation: PCP, Cardiology Patient Education/Counseling: Diagnosis, Treatment Family Education/Counseling: No Family Present SEPSIS Sepsis Screen Physician Orders Electrocardigram (11/21/24 02:25) Electrocardigram (11/21/24 04:25) Urinalysis (11/21/24 01:26) Drug Screen (11/21/24 01:26) Type And Screen (11/21/24 01:27) Chest Xray 1 View (11/21/24 01:27) Program Services Planner (11/21/24 01:29) Blood Pressure (11/21/24 01:29) Pulse Oximetry (11/21/24 01:29) Sodium Chloride Lock (Saline Lock Ns) (11/21/24 06:00) Heparin Sodium (Porcine) (11/21/24 01:30) Oxygen Per Hour (11/21/24 01:29) Cardiac Rehabilitation - Outpa (11/21/24 ) Heparin Sodium (Porcine) (11/21/24 01:30) Bladder Scan (11/21/24 ) Cl Left Heart Cath (11/21/24 01:54) Consistent Carb(Ccho)Diabetes (11/21/24 Breakfast) * Cardiology Consult (11/21/24 02:22) Glucose Blood (Accu-Chek Comfort Curve T (11/21/24 04:00) Insulin R (Human) (Insulin R) (11/21/24 04:00) Dextrose 50% Syringe (11/21/24 02:30) Allergies (11/21/24 02:22) Code Status (11/21/24 02:22) Sodium Chloride 0.9% (11/21/24 02:30) Oxygen Per Hour (11/21/24 02:22) Hydrocodone-Acet 5/325mg Tab ([place] 5/32 (11/21/24 02:30) Ondansetron Hcl (Zofran) (11/21/24 02:30) Docusate Sodium Capsule (Colace Capsule) (11/21/24 02:30) Fall Risk Precautions In Place QSHIFT (11/21/24 02:22) Complete Blood Count (11/22/24 04:00) Comprehensive Metabolic Panel (11/22/24 04:00) Condition: Critical (11/21/24 02:22) Acetaminophen Tablet (Tylenol Tablet) (11/21/24 02:30) Maintain Bed Rest (11/21/24 02:22) Sequential Compression Device (11/21/24 ) Potassium Chl 20meq/100ml (11/21/24 02:30) Head Without Contrast (11/21/24 02:28) Vital Signs Date Time Temp Pulse Resp B/P (MAP) Pulse Ox O2 Delivery O2 Flow Rate FiO2 11/21/24 01:30 98.1 72 12 105/66 (79) 99 98.1 11/21/24 01:30 Nasal Cannula* 4 36 11/21/24 01:30 72 11/21/24 01:22 98.1 48 20 90/58 98 98.1 11/21/24 01:22 60 Laboratory Tests Test 11/21/24 01:30 Lactic Acid Level 2.5 mmol/L (0.4-2.0) *H White Blood Count 13.2 10^3/uL (4.4-10.8) H Medications Medications Dose Ordered Sig/Graeme Route Start Time Stop Time Status Last Admin Dose Admin Clopidogrel Bisulfate 300 mg ONCE ONCE PO 11/21/24 01:30 11/21/24 01:31 DC 11/21/24 01:35 Heparin Sodium (Porcine) 2,500 units ONCE ONCE IV 11/21/24 01:30 11/21/24 01:31 DC 11/21/24 01:35 Departure 1 Departure Time of Disposition: 02:10 Impression: Primary Impression: Syncope and collapse Additional Impressions: STEMI (ST elevation myocardial infarction) Bradycardia Disposition: 09 ADMITTED INPATIENT Admit to: ICU Condition: Guarded Comments Patient will be admitted for further management and of syncope including cardiac workup including left heart catheterization. Would also need workup for acute urinary retention Critical Care Note Critical Care Time?: No Stability Stability form required: No Heart Score Heart Score: Heart Score Response (Comments) Value History Highly Suspicious [address]-Deviation 2 Age 45-64 1 Risk Factors >3 or Hx ASHD 2 Troponin Normal limit 0 Total 7 MESSI MEDINA RESIDENT Nov 21, 2024 01:33
[2024-11-21] MEDS: CLOPIDOGREL BISULFATE 75 MG TAB PO ONE ×2 (01:35→16:13)
[2024-11-21] MEDS: HEPARIN SODIUM (PORCINE) 5000 UNITS/ML 1ML VIAL IV ONE (01:35)
[2024-11-21 01:48] LABS: Hematocrit 46.3 % (41.0-53.0); Hemoglobin 16.1 g/dL (13.5-17.5); Mean Corpuscular Hemoglobin 30.8 pg (28.0-32.0); Mean Corpuscular Volume 88.3 fL (80.0-100.0); Nucleated Red Blood Cells % 0.1 %
--- NOTE | 2024-11-21 01:55 | DVH ---
CHEST RADIOGRAPH Indication: chest pain Technique: Single frontal view of the chest was obtained COMPARISON: XY CHEST XRAY 1 VIEW on DOS: 08/11/24 FINDINGS: Cardiac silhouette is borderline in size. Slight prominence of the pulmonary vasculature. No dense f ocal airspace disease. No significant pleural effusions. Bones and soft tissues demonstrate no signi ficant abnormality. IMPRESSION: Pulmonary venous congestion.
[2024-11-21] MEDS: ANGIOMAX 250 MG VIAL IV ONE (02:02)
[2024-11-21] MEDS: VERAPAMIL 2.5MG/ML INJ 2ML VIAL IV ONE (02:03)
[2024-11-21] MEDS: ATROPINE SULF 1 MG/10ml SYR ONE (02:03)
[2024-11-21] MEDS: fentaNYL CITRATE 100 MCG/2 ML VL ONE (02:03)
[2024-11-21] MEDS: LIDOCAINE 2%HCL (LOCAL ANESTH.) INJ 20ML MDV ONE (02:04)
[2024-11-21] MEDS: IODIXANOL 320MG/ML 100ML BTL IV ONE ×2 (02:04→02:59)
[2024-11-21] MEDS: MIDAZOLAM HCL 2MG/2ML 2ml VIAL (1mg/ml) ONE (02:04)
[2024-11-21] MEDS: SODIUM CHL 0.9% 50 ML ONE (02:04)
[2024-11-21 02:09] LABS: INR 0.98 (0.9-1.15); Partial Thromboplastin Time 22.6 SEC (24.5-34.5); Prothrombin Time 10.4 sec (9.3-11.8)
[2024-11-21 02:16] LABS: Alanine Aminotransferase 32 U/L (7-40); Albumin 4.0 g/dL (3.2-4.8); Alkaline Phosphatase 47 U/L (46-116); Anion Gap 12 (5-15); BUN/Creatinine Ratio 14.6 (10.0-20.0); Blood Urea Nitrogen 18 mg/dL (9-23); Calcium 9.3 mg/dL (8.7-10.4); Carbon Dioxide 26 mmol/L (20-31); Chloride 104 mmol/L (98-107); Cholesterol 183 mg/dL (< 200); Magnesium 2.0 mg/dL (1.6-2.6); Sodium 142 mmol/L (136-145); Total Protein 6.2 g/dL (5.7-8.2)
--- NOTE | 2024-11-21 02:18 | DVHINCON2 ---
Date Seen: Nov 21, 2024 Referring Physician Emergency room Reason for Consultation Chest pain History of Present Illness 64-year-old gentleman with a history of diabetes and hypertension comes with a history of the syncopal episode. He was going to the bathroom and was unable to initiate micturition. States that he was found on the floor by son. He does not remember much. He was having chest pain for several months now on and off over his chest. Recent ER evaluation was negative. No previous history of severe coronary artery disease. No history of stroke. He states that is symptoms were somewhat atypical and that he just does not feel right but was not feeling pain over last 24 hours. No clamminess or diaphoresis. Past Medical History PAST MEDICAL HISTORY: DM2, HTN, Sleep apnea non-compliant with CPAP machine, Lumbar disc bulging Surgical History: Hernia Repair, Tonsillectomy, bilateral carpal tunnels surgery Past Surgical History Status post tonsillectomy and carpal tunnel surgery. Family History: Cardiovascular disease G8 FATHER Family History Family History: Family hx of Cancer, further diagnosed with HOCM Social History Nondrinker nonsmoker. Allergies: Coded Allergies: NO KNOWN ALLERGIES (Unverified , 01/18/10) Home Meds Active Scripts Insulin Aspart (Novolog Flexpen Relion) 100 Unit/Ml Inj, 3 UNIT SC TIDPRN PRN for 30 Days, #1 INJ 1 Refill take 3u prn for pre-meal BG>180 Prov:ABDELRAHMAN DE LEÓN MD 02/16/24 Sitagliptin Phosphate (Januvia) 25 Mg Tab, 25 MG PO DAILY for 30 Days, #30 TAB 1 Refill Prov:ABDELRAHMAN DE LEÓN MD 02/15/24 Reported Medications Metformin HCl (Metformin Hydrochloride) 1,000 Mg Tab, 1000 MG PO BID, TAB 02/14/24 Current Medications Current Medications Medications (Trade) Dose Ordered Sig/Graeme Route PRN Reason Start Time Stop Time Status Last Admin Sodium Chloride (Saline Lock Ns) 10 ml Q8HR IV 11/21/24 06:00 UNV Review of Systems Review of Systems Constitutional: Yes: Weakness; No: Fever, Chills, Sweats, Malaise, Other Eyes: No: Pain, Vision change, Conjunctivae inflammation, Eyelid inflammation, Other, Redness ENT: No: Ear pain, Ear discharge, Nose pain, Nose discharge, Nose congestion, Mouth pain, Mouth swelling, Throat pain, Throat swelling, Other Respiratory: Shortness of breath; No: Cough, Dry, SOB with excertion, Wheezing, Hemoptysis, Pleuritic Pain, Sputum, Wheezing, Other Cardiovascular: Chest Pain; No: Palpitations, Orthopnea, Paroxysmal Noc. Dyspnea, Edema, Lt Headedness, Other Gastrointestinal: Nausea; No: Vomiting, Abdominal Pain, Diarrhea, Constipation, Melena, Hematochezia, Other Genitourinary: No Dysuria, No Frequency, No Incontinence, No Hematuria, No Retention, No Other Musculoskeletal: No: other, neck pain, shoulder pain, arm pain, back pain, hand pain, leg pain, foot pain Skin: No: Rash, Lesions, Jaundice, Bruising, Other Neurological: No: Weakness, Numbness, Incoordination, Change in speech, Confusion, Seizures, recent syncope Allergies: Coded Allergies: NO KNOWN ALLERGIES (Unverified , 01/18/10) Vital Signs Vital Signs Date Time Temp Pulse Resp B/P (MAP) Pulse Ox O2 Delivery O2 Flow Rate FiO2 11/21/24 01:30 98.1 72 12 105/66 (79) 99 98.1 11/21/24 01:30 Nasal Cannula* 4 36 Physical Exam Alert and oriented. No acute distress. HEENT examination is otherwise unremarkable. Orally well hydrated. No jugular distention no bruits. Lungs reveal good air entry no rales or rhonchi. Heart exam reveals regular S1-S2 soft S4. Abdominal examination is unremarkable. Extremities reveal adequate perfusion without clubbing or cyanosis no edema. Neurologically intact. Integumentary is normal. Labs/Diagnostic Data EKG shows ST elevations in the inferior leads with reciprocal changes in the anterior leads. Labs Test 11/21/24 01:30 Range/Units Assessment Acute ST-elevation myocardial infarction involving the inferior wall of the left ventricle. Diabetes mellitus. Hypertension. Hyperlipidemia. Plan/Recommendation Urgent cardiac catheterization therapeutic intervention is warranted. Risks benefits have been explained. Patient agrees. Plan discussed with: Patient NYHA Physical activity limitations: NA Date of Service: Nov 21, 2024 Billing Provider: AMADOR MONACO Sr., MD Cardiology Common Codes: [id number] INP/OBS CARE (High) AMADOR MONACO Sr., MD Nov 21, 2024 02:18
[2024-11-21 02:21] LABS: Bilirubin, Total 0.2 mg/dL (0.2-1.0); Glucose 217 mg/dL (74-106); HDL Cholesterol 30 mg/dL (40-59); Potassium 3.4 mmol/L (3.5-5.1); Triglycerides 788 mg/dL (< 150)
[2024-11-21 02:27] LABS: Lactic Acid w/Reflex 2.5 mmol/L (0.4-2.0)
[2024-11-21] MEDS ORDERED: DOCUSATE SOD 100 MG CAP PO PRN (02:30)
[2024-11-21] MEDS ORDERED: ONDANSETRON HCL 4 MG/2 ML VIAL IV PRN (02:30)
[2024-11-21] MEDS ORDERED: ACETAMINOPHEN 325 MG TAB PO PRN (02:30)
[2024-11-21] MEDS ORDERED: DEXTROSE (50%) 50ML SYRG IV PRN (02:30)
[2024-11-21] MEDS: HEPARIN SODIUM (PORCINE) 5000 UNITS/ML 1ML VIAL ONE (02:58)
[2024-11-21] MEDS: NOREPINEPHRINE 8 MG/250ML KIT 250 ML IV ONE (02:58)
[2024-11-21] MEDS ORDERED: MORPHINE SULFATE INJ 2 MG/ml SYRG IV PRN (03:00)
[2024-11-21] MEDS ORDERED: NITROGLYCERIN 0.4 MG SL TAB SL PRN (03:00)
--- NOTE | 2024-11-21 03:07 | DVHOP2 ---
Operative Report - 2 Report Details Date: 11/21/24 Preop Diagnosis: Acute ST-elevation myocardial infarction Postop Diagnosis: Successful angioplasty and stenting of the RCA. Aperture of the occluded vessel. Surgeon: Amador Ashby MD Anesthesiologist: Conscious sedation Anesthesia: Mac, Local Consent: The patient was informed of the risks and benefits of the procedure. These include but are not limited to complications of anesthesia, postoperative infection, incomplete relief of symptoms, recurrence of symptoms, damage to blood vessels, nerves and tendons, deep venous thrombosis, pulmonary embolism and possible need for repeat surgery in the future. Complications: No complications Findings: Occluded RCA. Cardiomyopathy. Indications for Surgery: Acute ST-elevation myocardial infarction Name of Procedure Performed Left heart catheterization. Bilateral cine coronary angiography. Left ventriculography. PTCA and stenting of RCA. Procedure Details Procedure Details: Prior local anesthesia with 2% lidocaine to the right wrist and full informed consent obtained the patient was prepped and draped in usual fashion. Under fluoroscopic and ultrasound guidance view obtained access to the radial artery. Placed a slender sheath followed by an EBU three five guide. We then performed ventriculography and angiography of right and left coronary ostia with subsequent angioplasty. Hemodynamics: Aortic blood pressure was 90/50. End-diastolic pressure was five. There was no gradient across the aortic valve on pullback. Coronary anatomy: The RCA is a large vessel it is occluded at its mid to distal segment. Left main is large and normal. Anterior descending is a large vessel is normal in its proximal mid and distal segments. The diagonals are free of disease. The circumflex is nondominant small obtuse marginal branches. Free of significant disease Ventriculography in the PARK projection shows global hypokinesis EF of 35-40% appears to be an enlarged left ventricle Angioplasty was performed for which a three five EBU guide in place we then used a Specter wire across the area of stenosis. We placed a two five balloon to open the vessel we noticed that large posterolateral branch PDA and large distal coronary system. We placed a 4.0 x 12 stent into the RCA and post dilated with a 4.5 mm NC euphoria balloon. This was dilated to 20 atmospheres. THERE WAS EXCELLENT ANTEGRADE FLOW. NO THROMBUS AND/OR DISSECTION NOTED. Impression: Decreased left ventricular ejection fraction. Normal left ventricular end-diastolic pressure at rest. Single-vessel coronary artery disease involving a complete occlusion of the RCA with subsequent aperture and stenting of the mid /l distal RCA. Recommendations: Dual antiplatelet therapy cholesterol-lowering medication. Risk factor modification and diabetes control. Condition Guarded Disposition Still a Patient Date of Service: Nov 21, 2024 Billing Provider: AMADOR ASHBY Sr., MD Cardiology Common Codes: [id number] INP/OBS CARE (High) Cardiology Procedure Codes: [id number] FOR STEMI W/STENT, [id number] HEART CATH W/INTRA INJ AMADOR ASHBY Sr., MD Nov 21, 2024 03:07
--- NOTE | 2024-11-21 03:09 | DVHHP2 ---
History of Present Illness Reason for Visit: Syncope and collapse History of Present Illness The patient is a 64-year-old male with past medical history of hypertension, hyperlipidemia, diabetes mellitus, and back pain-herniated disc who presented to [facility] ED for evaluation of syncopal episode. As reported by EMS, patient was in the bathroom with difficulty urinating when he started experiencing dizziness, lightheadedness, and syncopal episode, passed out for almost 3 minutes. When EMS arrived on the scene, patient was alert, heart rate was in the 50s, blood pressure systolic in the 80s, EKG was completed, which showed STEMI, denied chest pain, no diaphoresis. Patient was placed on oxygen 4 L/min via nasal cannula EN route to our facility ED. Patient was seen and evaluated in the ED, EKG was completed on arrival which showed ST-elevation in lead 2, 3, AVF with reciprocal change in aVL, V1, V2, V3, Cardiology was con sulted - Dr Ashby who confirmed STEMI, code STEMI activated and patient was scheduled for left heart catheterization emergency. Chest x-ray revealing pulmonary vascular congestion. Laboratory data shows WBC 13.2, platelets 252, sodium 142, potassium 3.4, BUN 18, creatinine 1.23, glucose 217, calcium 9.3, BNP 2.08, troponin 16 trending up, TSH 2.52, triglycerides 788, blood pressure 105/66, heart rate 72, temperature 98.1 F, O2 saturation 99% on oxygen. Patient underwent cardiac catheterization successfully without any complication. Patient was admitted for further evaluation and medical management. Past Medical History Hypertension, HLD, Diabetes mellitus, Back pain - herniated disc, Past Surgical History Tonsillectomy, Hernia repair,Right knee replacement Family History Reviewed, noncontributory to the management of this case. Past Social History The patient lives at home, denies smoking, alcohol or illicit drugs abuse. Review of Systems Constitutional: Yes: Weakness; No: Fever, Chills, Sweats, Malaise, Other Eyes: No: Pain, Vision change, Conjunctivae inflammation, Eyelid inflammation, Other, Redness ENT: No: Ear pain, Ear discharge, Nose pain, Nose discharge, Nose congestion, Mouth pain, Mouth swelling, Throat pain, Throat swelling, Other Respiratory: Shortness of breath; No: Cough, Dry, SOB with excertion, Wheezing, Hemoptysis, Pleuritic Pain, Sputum, Wheezing, Other Cardiovascular: Lt Headedness, Other (Diaphoresis, dizzy spells, syncope.); No: Chest Pain, Palpitations, Orthopnea, Paroxysmal Noc. Dyspnea, Edema Gastrointestinal: No: Nausea, Vomiting, Abdominal Pain, Diarrhea, Constipation, Melena, Hematochezia, Other Genitourinary: No Dysuria, No Frequency, No Incontinence, No Hematuria, No Retention; Other (Urgency) Musculoskeletal: No: other, neck pain, shoulder pain, arm pain, back pain, hand pain, leg pain, foot pain Skin: No: Rash, Lesions, Jaundice, Bruising, Other Neurological: Other (Dizziness, fainting.); No: Weakness, Numbness, Incoordination, Change in speech, Confusion, Seizures Allergies: Coded Allergies: NO KNOWN ALLERGIES (Unverified , 01/18/10) Medications Current Medications Medications Dose Ordered Sig/Graeme Route Start Time Stop Time Status Last Admin Dose Admin Sodium Chloride 10 ml Q8HR IV 11/21/24 06:00 Diagnostic Test (Pha) 1 strip IQ4HR 11/21/24 04:00 Insulin Human Regular IQ4HR SC 11/21/24 04:00 Dextrose 50 ml UD PRN IV 11/21/24 02:30 Sodium Chloride 1,000 ml @ 60 mls/hr [id number] IV 11/21/24 02:30 Acetaminophen/ Hydrocodone Bitart 1 tab Q4HP PRN PO 11/21/24 02:30 Ondansetron HCl 4 mg Q4HP PRN IV 11/21/24 02:30 Docusate Sodium 100 mg BIDPRN PRN PO 11/21/24 02:30 Acetaminophen 650 mg Q6HP PRN PO 11/21/24 02:30 Norepinephrine Bitartrate 250 ml @ 3.75 mls/hr Q24H IV 11/21/24 03:00 UNV Exam Vital Signs Vital Signs Date Time Temp Pulse Resp B/P (MAP) Pulse Ox O2 Delivery O2 Flow Rate FiO2 11/21/24 02:03 112/74 11/21/24 01:30 98.1 72 12 99 98.1 11/21/24 01:30 Nasal Cannula* 4 36 General Appearance: Alert, Oriented X3, Cooperative, No acute distress HEENT: Atraumatic, PERRLA, EOMI, Mucous membr. moist/pink Respiratory: Normal air movement Cardiovascular: Normal S1, Normal S2, No murmurs, Other (Sinus bradycardia) Abdominal: Normal bowel sounds, Soft, No tenderness, No hepatospenomegaly, No m asses Extremities: No clubbing, No cyanosis, No edema, Normal pulses, No tenderness/swelling Skin: No rashes, No breakdown, No significant lesion Neuro: Normal speech, Normal tone, Sensation intact, Cranial nerves 3-12 NL, Reflexes 2+, Other (Generalized weakness) Psych/Mental Status: Mental status NL, Mood NL Labs/Xrays Labs Test 11/21/24 01:30 Range/Units White Blood Count 13.2 H 4.4-10.8 10^3/uL Red Blood Count 5.24 4.5-5.90 10^6/uL Hemoglobin 16.1 13.5-17.5 g/dL Hematocrit 46.3 41.0-53.0 % Mean Corpuscular Volume 88.3 80.0-100.0 fL Mean Corpuscular Hemoglobin 30.8 28.0-32.0 pg Mean Corpuscular Hemoglobin Concent 34.9 32.0-36.0 g/dL Red Cell Distribution Width 12.9 11.8-14.3 % Platelet Count 252 140-450 10^3/uL Mean Platelet Volume 8.6 6.9-10.8 fL Neutrophils (%) (Auto) 54.7 37.0-80.0 % Lymphocytes (%) (Auto) 33.2 10.0-50.0 % Monocytes (%) (Auto) 8.1 0.0-12.0 % Eosinophils (%) (Auto) 3.3 0.0-7.0 % Basophils (%) (Auto) 0.7 0.0-2.0 % Neutrophils # (Auto) 7.2 1.6-8.6 10 ^3/uL Lymphocytes # (Auto) 4.4 0.4-5.4 10 ^3/uL Monocytes # (Auto) 1.1 0-1.3 10 ^3/uL Eosinophils # (Auto) 0.4 0-0.8 10 ^3/uL Basophils # (Auto) 0.1 0-0.2 10 ^3/uL Nucleated Red Blood Cells 0.1 % Prothrombin Time 10.4 9.3-11.8 sec Prothrombin Time INR 0.98 0.9-1.15 Activated Partial Thromboplast Time 22.6 L 24.5-34.5 SEC Sodium Level 142 136-145 mmol/L Potassium Level 3.4 L 3.5-5.1 mmol/L Chloride Level 104 98-107 mmol/L Carbon Dioxide Level 26 20-31 mmol/L Anion Gap 12 5-15 Blood Urea Nitrogen 18 9-23 mg/dL Creatinine 1.23 0.700-1.30 mg/dL Glomerular Filtration Rate Calc 66 >90 mL/min BUN/Creatinine Ratio 14.6 10.0-20.0 Serum Glucose 217 H 74-106 mg/dL Lactic Acid Level 2.5 *H 0.4-2.0 mmol/L Calcium Level 9.3 8.7-10.4 mg/dL Magnesium Level 2.0 1.6-2.6 mg/dL Total Bilirubin 0.2 0.2-1.0 mg/dL Aspartate Amino Transferase (AST) 28 13-40 U/L Alanine Aminotransferase (ALT) 32 7-40 U/L Alkaline Phosphatase 47 46-116 U/L Troponin I High Sensitivity 16 </=54 ng/L B-Type Natriuretic Peptide 2.08 0-100 pg/mL Total Protein 6.2 5.7-8.2 g/dL Albumin 4.0 3.2-4.8 g/dL Triglycerides Level 788 H < 150 mg/dL Cholesterol Level 183 < 200 mg/dL LDL Cholesterol < 100 mg/dL HDL Cholesterol 30 L 40-59 mg/dL Thyroid Stimulating Hormone (TSH) 2.52 0.55-4.78 uIU/mL PATIENT: ABDIRAHMAN SANTO ACCT: [id number] UNIT: [id number] : 1960 LOC: ER ROOM / BED: / AGE / SEX: 64 / M ADM STATUS: REG ER SERVICE 0127 ORDERING PHYSICIAN: MESSI MEDINA RESIDENT PROCEDURE(s): CXR1 - CHEST XRAY 1 VIEW REASON: chest pain ORDER NUMBER(s): [id number], ACCESSION NUMBER(s): [id number] CHEST RADIOGRAPH Indication: chest pain Technique: Single frontal view of the chest was obtained COMPARISON: XY CHEST XRAY 1 VIEW on DOS: 08/11/24 FINDINGS: Cardiac silhouette is borderline in size. Slight prominence of the pulmonary vasculature. No dense focal airspace disease. No significant pleural effusions. Bones and soft tissues demonstrate no significant abnormality. IMPRESSION: Pulmonary venous congestion. SEPSIS Sepsis Screen Date sepsis recognized/suspect: Nov 21, 2024 Time Sepsis recognized/suspect: : Recent Procedure: No On Antibiotic Therapy: No Respiratory Rate >20: No Heart Rate >90: No Temp<36 C (96.8 F) or >38.3 C: No SBP <90 or MAP <65 mmHG: No New Acute Mental Status Change: No Is the patient on CPAP, BIPAP,: No Physician Orders Electrocardigram (11/21/24 02:25) Electrocardigram (11/21/24 04:25) Urinalysis (11/21/24:26) Drug Screen (11/21/24:26) Type And Screen (11/21/24:27) Chest Xray 1 View (11/21/24 01:27) Vice President Payment (11/21/24 01:29) Blood Pressure (11/21/24 01:29) Pulse Oximetry (11/21/24 01:29) Sodium Chloride Lock (Saline Lock Ns) (11/21/24 06:00) Heparin Sodium (Porcine) (11/21/24 01:30) Oxygen Per Hour (11/21/24 01:29) Cardiac Rehabilitation - Outpa (11/21/24 ) Heparin Sodium (Porcine) (11/21/24 01:30) Bladder Scan (11/21/24 ) Cl Left Heart Cath (11/21/24 01:54) Consistent Carb(Ccho)Diabetes (11/21/24 Breakfast) * Cardiology Consult (11/21/24 02:22) Glucose Blood (Accu-Chek Comfort Curve T (11/21/24 04:00) Insulin R (Human) (Insulin R) (11/21/24 04:00) Dextrose 50% Syringe (11/21/24 02:30) Allergies (11/21/24 02:22) Code Status (11/21/24 02:22) Sodium Chloride 0.9% (11/21/24 02:30) Oxygen Per Hour (11/21/24 02:22) Hydrocodone-Acet 5/325mg Tab ([place] 5/32 (11/21/24 02:30) Ondansetron Hcl (Zofran) (11/21/24 02:30) Docusate Sodium Capsule (Colace Capsule) (11/21/24 02:30) Fall Risk Precautions In Place QSHIFT (11/21/24 02:22) Complete Blood Count (11/22/24 04:00) Comprehensive Metabolic Panel (11/22/24 04:00) Condition: Critical (11/21/24 02:22) Acetaminophen Tablet (Tylenol Tablet) (11/21/24 02:30) Maintain Bed Rest (11/21/24 02:22) Sequential Compression Device (11/21/24 ) Potassium Chl 20meq/100ml (11/21/24 02:30) Head Without Contrast (11/21/24 02:28) Norepinephrine 8 Mg/250ml Kit (Levophed) (11/21/24 03:00) Atorvastatin (Lipitor) (11/21/24 22:00) NS (11/21/24 03:00) Lactic Acid W/ Reflex Order (11/21/24 04:00) Zosyn Extended Infusion (11/21/24 06:00) Admit (11/21/24 03:00) Nitroglycerin Sublingual (Ntrostat Subli (11/21/24 03:00) Morphine Sulfate Injection (11/21/24 03:00) Stat Ekg For Chest Pain (11/21/24 03:00) Notify Md Of Changes From Base (11/21/24 03:00) Renovation Plant Supervisor For 24 Hours (11/21/24 03:00) Emergency Dysrhythmia Protocol (11/21/24 03:00) Rhythm Strips Once Every Shift (11/21/24 03:00) Oxygen By Nasal Cannula (11/21/24 03:00) Vital Signs Date Time Temp Pulse Resp B/P (MAP) Pulse Ox O2 Delivery O2 Flow Rate FiO2 11/21/24 02:03 112/74 11/21/24 01:30 98.1 72 12 105/66 (79) 99 98.1 11/21/24 01:30 Nasal Cannula* 4 36 11/21/24 01:30 72 11/21/24 01:22 98.1 48 20 90/58 98 98.1 11/21/24 01:22 60 Laboratory Tests Test 11/21/24 01:30 Lactic Acid Level 2.5 mmol/L (0.4-2.0) *H White Blood Count 13.2 10^3/uL (4.4-10.8) H Medications Medications Dose Ordered Sig/Graeme Route Start Time Stop Time Status Last Admin Dose Admin Bivalirudin 250 mg STK-MED ONCE IV 11/21/24 02:02 11/21/24 01:59 DC 11/21/24 02:02 250 MG Clopidogrel Bisulfate 300 mg ONCE ONCE PO 11/21/24 01:30 11/21/24 01:31 DC 11/21/24 01:35 300 MG Fentanyl Citrate 100 mcg STK-MED ONCE .ROUTE 11/21/24 02:03 11/21/24 02:00 DC 11/21/24 02:03 50 MCG Heparin Sodium (Porcine) 2,500 units ONCE ONCE IV 11/21/24 01:30 11/21/24 01:31 DC 11/21/24 01:35 2,500 UNITS Iodixanol 32,000 mg STK-MED ONCE IV 11/21/24 02:04 11/21/24 02:01 DC 11/21/24 02:04 28,000 MG Midazolam HCl 2 mg STK-MED ONCE .ROUTE 11/21/24 02:04 11/21/24 02:00 DC 11/21/24 02:04 1 MG Assessment/Plan Assessment/Plan Syncope and collapse Bradycardia Leukocytosis, unspecified Hypokalemia Elevated triglyceride with high cholesterol STEMI (ST elevation myocardial infarction) Diabetes mellitus with hyperglycemia Plan 1. Admit to intensive care unit 2. Breathing treatment 3. Pain control management 4. IV antibiotic management 5. Management of fluids and electrolytes 6. Consultation for Cardiology 7. Diagnostic test chest x-ray 8. DVT prophylaxis-on heparin 9. Repeat labs CBC, CMP in a.m. 10. Home medication reviewed and reconciled 11. Continue with current medical management 12. Treatment plan discussed with patient and RN. Patient verbalized understanding. Plan discussed with: Patient, Other (RN) My Orders Orders - URSZULA LEWIS DNP Procedure Category Date Status Time Consistent DIET 11/21/24 [facility]Di[facility] Breakfast * Cardiology Consult CONS 11/21/24 Transmitted 02:22 Glucose Blood PHA 11/21/24 In Process (Accu-Chek Comfort 04:00 Insulin R (Human) PHA 11/21/24 In Process (Insulin R) 04:00 Dextrose 50% Syringe PHA 11/21/24 In Process 02:30 Allergies BONNIE 11/21/24 In Process 02:22 Code Status CODE 11/21/24 Transmitted 02:22 Sodium Chloride 0.9% PHA 11/21/24 In Process 02:30 Oxygen Per Hour RT 11/21/24 Transmitted 02:22 Hydrocodone-Acet PHA 11/21/24 In Process 5/325mg Tab ([place] 02:30 Ondansetron Hcl PHA 11/21/24 In Process (Zofran) 02:30 Docusate Sodium PHA 11/21/24 In Process Capsule (Colace 02:30 Fall Risk Precautions BONNIE 11/21/[address] 02:22 Complete Blood Count LAB 11/22/24 Verified 04:00 Comprehensive LAB 11/22/24 Verified Metabolic Panel 04:00 Condition: Critical BONNIE 11/21/24 In Process 02:22 Acetaminophen Tablet PHA 11/21/24 In Process (Tylenol Tablet) 02:30 Maintain Bed Rest BONNIE 11/21/24 In Process 02:22 Sequential BONNIE 11/21/24 In Process Compression Device Atorvastatin (Lipitor) PHA 11/21/24 Verified 22:00 NS PHA 11/21/24 Verified 03:00 Lactic Acid W/ Reflex LAB 11/21/24 Verified Order 04:00 Zosyn Extended [facility] 11/21/24 Verified Infusion 06:00 Admit ADMIT 11/21/24 Verified 03:00 Nitroglycerin [facility] 11/21/24 Verified Sublingual (Ntrostat 03:00 Morphine Sulfate [facility] 11/21/24 Verified Injection 03:00 Stat Ekg For Chest [facility] 11/21/24 Verified Pain 03:00 Notify Of Changes [facility] 11/21/24 Verified From Base 03:00 Renovation Plant Supervisor For [facility] 11/21/24 Verified 24 Hours 03:00 Emergency Dysrhythmia [facility] 11/21/24 Verified Protocol 03:00 Rhythm Strips Once [facility] 11/21/24 Verified Every Shift 03:00 Oxygen By Nasal RT 11/21/24 Verified Cannula 03:00 Problem List: (1) Syncope and collapse (2) Bradycardia (3) Leukocytosis, unspecified (4) Hypokalemia (5) STEMI (ST elevation myocardial infarction) (6) Elevated triglycerides with high cholesterol (7) Diabetes mellitus with hyperglycemia Date of Service: Nov 21, 2024 Billing Provider: URSZULA LEWIS DNP Common Visit Codes: [id number] INP/OBS CARE (HIGH), [id number] CARE- EACH +30MIN URSZULA LEWIS DNP Nov 21, 2024 03:09
[2024-11-21] MEDS: SODIUM CHLORIDE 0.9% 500 ML IV ONE ×2 (03:16→04:00)
[2024-11-21] MEDS: NOREPINEPHRINE 8 MG/250ML KIT 250 ML IV SCH ×2 (04:00)
[2024-11-21] MEDS: SODIUM CHLORIDE 0.9% 1,000 ML IV SCH (04:20)
[2024-11-21] MEDS: POTASSIUM CHL 20MEQ/100ML 100 ML IV ONE (04:20)
[2024-11-21] MEDS: ACCU-CHEK COMFORT CURVE STRIP VI SCH (04:21)
[2024-11-21] MEDS: InsuLIN REG 1unit/0.01ml Soln (100units/ml) SC SCH (04:23)
[2024-11-21 06:01] LABS: Opiate Scree,Urine Pos (NEGATIVE)
[2024-11-21 06:02] LABS: Amphetamine Screen, Urine Neg (NEGATIVE); Barbiturate Scree,Urine Neg (NEGATIVE); Benzodiazephine Screen, Urine Pos (NEGATIVE); Cannabinoid Screen, Urine Pos (NEGATIVE); Cocaine Screen, Urine Neg (NEGATIVE); Phencyclidine Screen, Urine Neg (NEGATIVE)
[2024-11-21 06:15] LABS: Urine Protein, UAD Negative (Negative)
[2024-11-21] MEDS: SODIUM CHLOR 0.9% PF (SALINE LOCK) 10ML VIAL/SYR IV SCH (06:46)
[2024-11-21] MEDS: PIPERACILLIN-TAZOB 3.375GM 100 ML IV SCH (08:21)
[2024-11-21] MEDS ORDERED: PATIENTS OWN MEDICATION (crestor 20 MG) PO SCH (10:00)
--- NOTE | 2024-11-21 11:59 | DVHPNRES ---
Progress Note Date Seen: Nov 21, 2024 Resident Creating Document: MAGALY PEREZ RESIDENT Medical Necessity Reason Pt with a Central, PICC or Fol: No Subjective Review of Systems This is a 64-year-old male with past medical history of HTN, dm 2, back pain- herniated disc came with a complaint of chest pain which is pressure-like sensation few months before came to the hospital and getting worse, 5-6/10 intensity, radiates from right to left side of the chest, no aggravating or relieving factors. As per patient, patient was in bathroom and after that suddenly he felt lightheadedness and experienced of fall denies head trauma. As per EMS, patient experiencing urination difficulty patient passed out approximately 3 minutes, he was found on the floor by son. He was having chest pain for several months now on and off over his chest.. On arrival ER, patient AO x4, HR 50s, patient hypotensive systolic blood pressure 80s, EKG shows STEMI lead ll,lll ,AVF with reciprocal changes in aVL, V1, V2, V3. Cardiology consulted and confirmed STEMI and patient was scheduled for left heart catheterization. Patient having similar episode like presyncopal attack 2 years ago and fall on ground, sent to ER and after workup in ER everything comes out normal and discharged home after 4 hours. No stress test, echo or angiogram done before, never seen by cardiology. Past medical history: hypertension, diabetes, back pain - herniated disc, Past surgical history tonsillectomy hernia surgery right knee replacement Smoker: Non-Smoker Alcohol: Occasionally Drugs: Denies Drug Use Lives In: Home PCP: Dr. Wiggins([phone]) Pain management: [employer]([phone]) Home medication: Lisinopril, atorvastatin, amlodipine, Basaglar, NovoLog, oxycodone. 11/21: Patient seen and evaluated bedside. s/p angiogram on 11/21/2024- angioplasty and 1 stent placed RCA. Currently denies any chest pain, SOB, abdominal pain, headache or any other acute distress. Downgrade to tele. Objective vital signs Vital Sign Date Time Temp Pulse Resp B/P (MAP) Pulse Ox O2 Delivery O2 Flow Rate FiO2 11/21/24 07:30 85 13 97 11/21/24 07:15 139/89 (106) 11/21/24 06:00 Nasal Cannula* 2 28 11/21/24 04:00 97.5 97.5 Total Intake and Output 11/20/24 11/20/24 11/21/24 15:00 23:00 07:00 Intake Total 837.5 ml Output Total 1800 ml Balance -962.5 ml medications Current Medications Medications Dose Ordered Sig/Graeme Route Start Time Stop Time Status Last Admin Dose Admin Sodium Chloride 10 ml Q8HR IV 11/21/24 06:00 11/21/24 06:46 10 ML Diagnostic Test (Pha) 1 strip IQ4HR 11/21/24 04:00 11/21/24 08:12 1 STRIP Insulin Human Regular IQ4HR SC 11/21/24 04:00 11/21/24 08:16 4 UNITS Dextrose 50 ml UD PRN IV 11/21/24 02:30 Sodium Chloride 1,000 ml @ 60 mls/hr [id number] IV 11/21/24 02:30 11/21/24 04:20 60 MLS/HR Acetaminophen/ Hydrocodone Bitart 1 tab Q4HP PRN PO 11/21/24 02:30 Ondansetron HCl 4 mg Q4HP PRN IV 11/21/24 02:30 Docusate Sodium 100 mg BIDPRN PRN PO 11/21/24 02:30 Acetaminophen 650 mg Q6HP PRN PO 11/21/24 02:30 Atorvastatin Calcium 40 mg HS PO 11/21/24 22:00 Piperacillin Sod/ Tazobactam Sod 100 ml @ 25 mls/hr Q8HR IV 11/21/24 06:00 11/21/24 08:21 25 MLS/HR Nitroglycerin 0.4 mg Q5MINP PRN SL 11/21/24 03:00 Morphine Sulfate 2 mg Q30M PRN IV 11/21/24 03:00 Patient Own Medication 20 mg DAILY PO 11/21/24 10:00 UNV Patient Own Medication 150 mg HS PO 11/21/24 22:00 Norepinephrine Bitartrate 250 ml @ 3.75 mls/hr Q24H IV 11/21/24 03:15 Atorvastatin Calcium 40 mg HS PO 11/21/24 22:00 Cancel Examination Patient lying in bed, not in acute distress Skin: Warm, dry, normal color and texture, no rash. HEENT: Normocephalic atraumatic, mucous membranes moist and pink. Neck: Cervical and supraclavicular nodes normal without enlargement, trachea is midline, thyroid gland is normal without masses. Pulmonary: Clear to auscultation and percussion bilaterally. Cardiac: Regular rate and rhythm. No murmur Abdomen: Soft, nontender, nondistended, bowel sounds present all 4 quadrants, no guarding, no rigidity, no organomegaly. Extremities: No cyanosis, clubbing, no edema Neuro: Cranial nerves II through XII grossly intact, normal affect and speech, no focal motor deficits. laboratory and microbiology Laboratory Tests 11/21/24 01:30 Test 11/21/24 01:30 Range/Units Serum Glucose 217 H 74-106 mg/dL Problem List/Assessment/Plan Problem List/Assessment/Plan This is a 64-year-old male with past medical history of HTN, dm 2, back pain- herniated disc came with a complaint of chest pain which is pressure-like sensation few months before came to the hospital and getting worse, 5-6/10 intensity, radiates from right to left side of the chest, no aggravating or relieving factors. As per patient, patient was in bathroom and after that suddenly he felt lightheadedness and experienced of fall denies head trauma. AIn ER, EKG shows STEMI lead ll,lll ,AVF with reciprocal changes in aVL, V1, V2, V3. Cardiology consulted and confirmed STEMI and patient was scheduled for left heart catheterization on 11/21/2024. NEUROLOGY: Syncope * Patient alert oriented x4 * No neurological weakness * Plan: Monitor and neuro check CARDIOVASCULAR: Acute ST-elevation inferior myocardial infarction De Medardo decompensated HFrEF Ischemic cardiomyopathy Essential hypertension Hyperlipidemia Bradycardia * Echo on 08/13/2024 shows LVEF 55-60%, mild LVH, RV mild dilated no significant valvular disease, ventriculography ejection fraction 30-35%. * On admission EKG shows ST-elevation * Troponin 16> 2846 * Coronary angiogram on: 11/21/2024-The RCA is a large vessel it is occluded at its mid to distal segment. * Left main is large and normal. Balloon angioplasty 1 stent placed RCA. * Plan: Dual antiplatelet, statin, fenofibrate, start GDMT and risk factor modification and diabetes. PULMONARY: No abnormality detected on physical examination CXR pulmonary venous congestion. GASTROINTESTINAL: GERD Plan: Protonix for GI prophylaxis GENITOURINARY: WILMAR secondary to hemodynamically mediated/VMN ? BPH * On admission creatinine 1 .23, baseline creatinine 0.79 * Hypokalemia * Plan: IVF and oral fluid intake, PSA, BMP HEMATOLOGY: Leukocytosis likely secondary to myocardial damage. * Plan: Monitor CBC METABOLIC: Diabetes mellitus type 2 Hypertriglyceridemia Mixed hyperlipidemia * Hemoglobin T0o-clwra pending * Monitor blood sugar * Plan: ISS INFECTIOUS DISEASE: Lactic acidosis * Leukocytosis likely myocardial damage * Plan: Lactic acid level, CBC MUSCULOSKELETAL/SKIN Chronic low-back pain Plan: Continue [place] Substance use disorder * U tox shows positive cannabinoid,(visit B, opiate, fentanyl-possible got in ER) * More than 17 minutes spent counseling abstinence from substance use. DIET: Diabetic DVT prophylax: SCDs GI prophylaxis: Protonix Bowel regimen: none Code status: Full code LINES/DRAINS/ACCESS: IV access: Peripheral Drips: Versed, fentanyl, Levophed Bradshaw catheter: Changed on 10/04 DISPOSITION: ICU to tele downgrade Patient's status discussed with patient's , patient uncle Critical care time spent more than 87 minutes, including patient care, updating the family. Excluding any procedures Case discussed with Dr. Hanson Plan discussed with: Patient, Daughter (Ellen), Other (Nurse, ) MAGALY PEREZ RESIDENT Nov 21, 2024 11:59
[2024-11-21] MEDS ORDERED: POTASSIUM CHL 20MEQ/100ML 100 ML IV ONE (12:30)
--- NOTE | 2024-11-21 13:39 | DVHPN2 ---
Consult Progress Note Date Seen: Nov 21, 2024 Subjective Review of Systems: CVS:Normal, RESPIRATORY:Normal, NEURO:Normal Other Systems: Denies any cardiac symptoms Objective vital signs Vital Sign Date Time Temp Pulse Resp B/P (MAP) Pulse Ox O2 Delivery O2 Flow Rate FiO2 11/21/24 08:15 76 11/21/24 08:15 14 97 Room Air* 0 21 11/21/24 07:15 139/89 (106) 11/21/24 04:00 97.5 97.5 Total Intake and Output 11/20/24 11/20/24 11/21/24 15:00 23:00 07:00 Intake Total 837.5 ml Output Total 1800 ml Balance -962.5 ml medications Current Medications Medications Dose Ordered Sig/Graeme Route Start Time Stop Time Status Last Admin Dose Admin Sodium Chloride 10 ml Q8HR IV 11/21/24 06:00 11/21/24 06:46 10 ML Diagnostic Test (Pha) 1 strip IQ4HR 11/21/24 04:00 11/21/24 12:03 1 STRIP Insulin Human Regular IQ4HR SC 11/21/24 04:00 11/21/24 12:06 4 UNITS Dextrose 50 ml UD PRN IV 11/21/24 02:30 Sodium Chloride 1,000 ml @ 60 mls/hr [id number] IV 11/21/24 02:30 11/21/24 04:20 60 MLS/HR Acetaminophen/ Hydrocodone Bitart 1 tab Q4HP PRN PO 11/21/24 02:30 Ondansetron HCl 4 mg Q4HP PRN IV 11/21/24 02:30 Docusate Sodium 100 mg BIDPRN PRN PO 11/21/24 02:30 Acetaminophen 650 mg Q6HP PRN PO 11/21/24 02:30 Atorvastatin Calcium 40 mg HS PO 11/21/24 22:00 Piperacillin Sod/ Tazobactam Sod 100 ml @ 25 mls/hr Q8HR IV 11/21/24 06:00 11/21/24 08:21 25 MLS/HR Nitroglycerin 0.4 mg Q5MINP PRN SL 11/21/24 03:00 Morphine Sulfate 2 mg Q30M PRN IV 11/21/24 03:00 Patient Own Medication 20 mg DAILY PO 11/21/24 10:00 UNV Patient Own Medication 150 mg HS PO 11/21/24 22:00 Norepinephrine Bitartrate 250 ml @ 3.75 mls/hr Q24H IV 11/21/24 03:15 Atorvastatin Calcium 40 mg HS PO 11/21/24 22:00 Cancel Examination: LUNGS:Normal, CVS:Normal, NEURO:Normal laboratory and microbiology Laboratory Tests 11/21/24 01:30 Test 11/21/24 01:30 Range/Units Serum Glucose 217 H 74-106 mg/dL Problem List/Assessment/Plan Problem List/Assessment/Plan Acute inferior wall myocardial infarction De Medardo decompensated HFrEF Ischemic cardiomyopathy Insulin dependent diabetes mellitus Hypertension hypertriglyceridemia Chronic back pain Cannabinoid use Assessment/Sung (Dr. Ashby) The patient with an acute inferior wall myocardial infarction underwent a successful PCI of the mid-RCA including 1DES. Ventriculography revealed LVEF at 35-40%. Recommendations are for initiation of DAPT uninterrupted for one year, GDMT for HFrEF with titration as tolerated, high-intensity statin, and to replete electrolytes as necessary. Strongly counseled on risk factor modifications including Mediterranean diet, exercise, tight-glycemic control, and routine follow ups with cardiology. Follow up with a primary decal decorator within 1-2 weeks post-discharge. Kindly call if in need of further recommendations. Signing off at this time. Thank you for allowing us to participate in this patient's care. Critical care time: 30 minutes. This medical document was created using an electronic medical record system with voice recognition software and computerized dictation system. Although this document has been carefully reviewed, there might still be some phonetic and typographical errors. Occasional wrong-word or ``sound-alike substitutions may have occurred due to the inherent limitations of voice recognition software. These areas are purely typographical due to imperfections of the software programs and do not reflect any compromise in the patient's medical care. Please read the chart carefully and recognize, using context, where these substitutions have occurred. Plan discussed with: Patient, Daughter Date of Service: Nov 21, 2024 Billing Provider: MAURO GONZALEZ Cardiology Common Codes: 34465-IHBXBACF CARE 30-74 MIN MAURO GONZALEZ Nov 21, 2024 13:38
[2024-11-21 15:05] LABS: Lactic Acid w/Reflex 2.4 mmol/L (0.4-2.0)
--- NOTE | 2024-11-21 16:03 | DVH ---
CLINICAL HISTORY: Urinary difficulty and hematuria. TECHNIQUE: Complete ultrasound exam of the kidneys and bladder was performed. COMPARISON: None FINDINGS: The right kidney has normal echogenicity and measures 9.6 cm. There is no focal parenchymal abnormali ty or evidence for stone. There is no hydronephrosis. The left kidney has normal echogenicity and measures 12 cm. There is no focal parenchymal abnormalit y or evidence for stone. There is no hydronephrosis. The bladder is decompressed by a Bradshaw catheter. IMPRESSION: NO SIGNIFICANT SONOGRAPHIC ABNORMALITY OF THE KIDNEYS.
[2024-11-21] MEDS: FUROSEMIDE 20 MG/2 ML VIAL IV ONE (16:12)
[2024-11-21] MEDS: POTASSIUM CHL 20 Meq TABLET PO ONE (16:13)
[2024-11-21] MEDS: METOPROLOL SUCCINATE XL 50 MG TAB PO ONE (16:41)
[2024-11-21 16:43] LABS: Hematocrit 47.7 % (41.0-53.0); Hemoglobin 15.9 g/dL (13.5-17.5); Mean Corpuscular Hemoglobin 29.8 pg (28.0-32.0); Mean Corpuscular Volume 89.7 fL (80.0-100.0); Nucleated Red Blood Cells % 0.0 %
[2024-11-21 16:57] LABS: Alanine Aminotransferase 32 U/L (7-40); Albumin 4.0 g/dL (3.2-4.8); Alkaline Phosphatase 47 U/L (46-116); Anion Gap 10 (5-15); BUN/Creatinine Ratio 11.0 (10.0-20.0); Blood Urea Nitrogen 11 mg/dL (9-23); Calcium 9.1 mg/dL (8.7-10.4); Carbon Dioxide 26 mmol/L (20-31); Chloride 104 mmol/L (98-107); Sodium 140 mmol/L (136-145); Total Protein 6.6 g/dL (5.7-8.2)
[2024-11-21 16:58] LABS: Bilirubin, Total 0.7 mg/dL (0.2-1.0); Glucose 190 mg/dL (74-106); Potassium 3.4 mmol/L (3.5-5.1)
[2024-11-21] MEDS: SACUBITRIL-VALSARTAN 24mg/26mg TAB PO SCH (21:06)
[2024-11-21] MEDS: ATORVASTATIN 20 MG TAB PO SCH (21:06)
[2024-11-21] MEDS: INSULIN LANTUS (GLARGINE) 1 /0.01ml (100units/ml) SC SCH (21:30)
[2024-11-21] MEDS ORDERED: METOPROLOL TARTRATE 25 MG TAB PO SCH (22:00)
[2024-11-21] MEDS ORDERED: FENOFIBRATE 150 MG PO SCH (22:00)
[2024-11-21] MEDS ORDERED: ATORVASTATIN 20 MG TAB PO SCH (22:00)
[2024-11-21] MEDS: HYDROcodone-ACET 5/325MG TAB PO PRN (22:47)
[2024-11-22] VITALS (8 sets, daily range): BP systolic 115–142; BP diastolic 73–91; PULSE 66–83; RESP 16–19; TEMP 97.9–98.4; O2SAT 98–99
[2024-11-22 06:33] LABS: Hematocrit 46.8 % (41.0-53.0); Hemoglobin 16.2 g/dL (13.5-17.5); Mean Corpuscular Hemoglobin 30.3 pg (28.0-32.0); Mean Corpuscular Volume 87.6 fL (80.0-100.0); Nucleated Red Blood Cells % 0.1 %
[2024-11-22 06:55] LABS: Alanine Aminotransferase 30 U/L (7-40); Albumin 4.0 g/dL (3.2-4.8); Alkaline Phosphatase 49 U/L (46-116); Anion Gap 11 (5-15); BUN/Creatinine Ratio 13.3 (10.0-20.0); Bilirubin, Total 0.9 mg/dL (0.2-1.0); Blood Urea Nitrogen 13 mg/dL (9-23); Calcium 9.0 mg/dL (8.7-10.4); Carbon Dioxide 27 mmol/L (20-31); Chloride 104 mmol/L (98-107); Sodium 142 mmol/L (136-145); Total Protein 6.6 g/dL (5.7-8.2)
[2024-11-22 07:25] LABS: Glucose 150 mg/dL (74-106); Potassium 3.1 mmol/L (3.5-5.1)
[2024-11-22 08:07] LABS: Prostate Specific Antigen 1.0 ng/mL (0.0-4.0)
--- NOTE | 2024-11-22 09:28 | DVH ---
CT HEAD WITHOUT CONTRAST INDICATION: SYNCOPE; FALL COMPARISON: CT HEAD WITHOUT CONTRAST on DOS: 06/18/24, CT HEAD WITHOUT CONTRAST on DOS: 02/14/24 TECHNIQUE: CT of the head without intravenous contrast. RADIATION DOSE: CTDIvol: 64.98 mGy, DLP: 64.98 mGy*cm FINDINGS: There is no evidence of acute intracranial hemorrhage, extra-axial collection, mass effect, midline s hift, herniation or hydrocephalus. The ventricles, sulci and cisterns are age appropriate. The arboleda -white differentiation is intact. The visualized paranasal sinuses and mastoid air cells are clear. The surrounding soft tissues and osseous structures are unremarkable. IMPRESSION: 1. No evidence of acute intracranial hemorrhage, mass effect or hydrocephalus.
--- NOTE | 2024-11-22 09:50 | ECG ---
[facility] Test Date: 2024-11-21 Test Time: 15:54:28 Pat Name: ABDIRAHMAN SANTO Department: Respiratoy Room: 0291T B Gender: M [employer] Supervisor: gordon : 1960 Requested By: EMERGENCY EMERGENCY Order Number: [id number] Reading MD: Alonzo Ashby Measurements Intervals [place] Rate: 77 P: 35 IA: 200 QRS: -69 QRSD: 101 T: -67 QT: 396 QTc: 449 Interpretive Statements Sinus rhythm Probable left atrial enlargement Abnormal R-wave progression, early transition Inferior infarct, old Electronically Signed On 11-22-2024 17:36:26 PDT by Alonzo Ashby Please click the below link to view image of tracing.
[2024-11-22] MEDS: SPIRONOLACTONE 25 MG TAB PO SCH (10:53)
[2024-11-22] MEDS: CLOPIDOGREL BISULFATE 75 MG TAB PO SCH (10:54)
[2024-11-22] MEDS: EMPAGLIFLOZIN 10 MG TAB PO SCH (10:54)
[2024-11-22] MEDS: FUROSEMIDE 20 MG TAB PO SCH (10:54)
[2024-11-22] MEDS: METOPROLOL SUCCINATE XL 50 MG TAB PO SCH (10:56)
[2024-11-22] MEDS: POTASSIUM EFFERVESENT TAB 25 MEQ PO ONE (12:09)
[2024-11-22] MEDS: POTASSIUM CHLORIDE 20 MEQ, LIDOCAINE 1% (LOCAL ANESTH.) 2 ML in SODIUM CHL 0.9% 100 ML IV ONE (12:19)
--- NOTE | 2024-11-22 14:00 | DVHSR ---
APPROVED REPORT EXAM: Two-dimensional and M-mode echocardiogram with Doppler and color Doppler. Blood Pressure: 139/89 mmHg INDICATION STEMI RISK FACTORS Height: 5'11", Weight: 197 DIMENSIONS LVDd5.0 (3.8-5.7cm)LA (2D)4.1 (1.9-4.0cm)Aortic Root3.6 (2.0-3.7cm) LVDs3.6 (2.5-4.0cm)LA (MM) (1.9-4.0cm)Aortic Cusp Exc2.1 (1.5-2.0cm) EF (%) 55.0 (55-70%)Rt. Atrium3.8 (1.9-4.0cm)Asc. Aorta3.7 cm IVSd1.4 (0.7-1.1cm)RV (D) (1.8-2.4cm) PWd1.0 (0.7-1.1cm) Mitral Valve MitralMitral Stenosis E wave0.64m/sMV Mean GR.mmHg A wave0.81m/sMV Peak GR.mmHg E/A ratio0.82D MVAcm2 DECEL [id number] 1/2 Timems Aortic Valve Aortic ValveAortic Stenosis V10.97m/Martha Mean GR.3mmHg V21.02m/Martha Peak GR.4mmHg LVOT Diameter2.4 (1.8-2.4cm)Doppler AVA4.30cm2 Pulmonic Valve V20.89m/s Conclusion Sinus rhythm. Technically good study. Concentric LVH with left atrial enlargement. Mild aortic root enlargement. Valves appear to be structurally normal. Left ventricular systolic performance is preserved there is inferior basal hypokinesis. EF is about 55% with normal RV function. Mild TR. No pericardial effusion masses or vegetations.
--- NOTE | 2024-11-22 16:53 | DVHPNRES ---
Progress Note Date Seen: Nov 22, 2024 Resident Creating Document: ERNESTO STUART RESDIENT Medical Necessity Reason Pt with a Central, PICC or Fol: No Subjective Review of Systems This is a 64-year-old male with past medical history of HTN, dm 2, back pain- herniated disc came with a complaint of chest pain which is pressure-like sensation few months before came to the hospital and getting worse, 5-6/10 intensity, radiates from right to left side of the chest, no aggravating or relieving factors. As per patient, patient was in bathroom and after that suddenly he felt lightheadedness and experienced of fall denies head trauma. As per EMS, patient experiencing urination difficulty patient passed out approximately 3 minutes, he was found on the floor by son. He was having chest pain for several months now on and off over his chest.. On arrival ER, patient AO x4, HR 50s, patient hypotensive systolic blood pressure 80s, EKG shows STEMI lead ll,lll ,AVF with reciprocal changes in aVL, V1, V2, V3. Cardiology consulted and confirmed STEMI and patient was scheduled for left heart catheterization. Patient having similar episode like presyncopal attack 2 years ago and fall on ground, sent to ER and after workup in ER everything comes out normal and discharged home after 4 hours. No stress test, echo or angiogram done before, never seen by cardiology. Past medical history: hypertension, diabetes, back pain - herniated disc, Past surgical history tonsillectomy hernia surgery right knee replacement Smoker: Non-Smoker Alcohol: Occasionally Drugs: Denies Drug Use Lives In: Home PCP: Dr. Wiggins([phone]) Pain management: [employer]([phone]) Home medication: Lisinopril, atorvastatin, amlodipine, Basaglar, NovoLog, oxycodone. Patient seen and evaluated bedside. s/p angiogram on 11/21/2024- angioplasty and 1 stent placed RCA. Currently denies any chest pain, SOB, abdominal pain, headache or any other acute distress. Objective vital signs Vital Sign Date Time Temp Pulse Resp B/P (MAP) Pulse Ox O2 Delivery O2 Flow Rate FiO2 11/22/24 13:00 98.0 76 18 141/89 (106) 98 98.0 11/22/24 08:00 Room Air* 0 21 Total Intake and Output 11/21/24 11/21/24 11/22/24 14:59 22:59 06:59 Intake Total 1010 ml 1220 ml 530 ml Output Total 1500 ml 700 ml Balance 1010 ml -280 ml -170 ml medications Current Medications Medications Dose Ordered Sig/Graeme Route Start Time Stop Time Status Last Admin Dose Admin Sodium Chloride 10 ml Q8HR IV 11/21/24 06:00 11/22/24 14:00 10 ML Diagnostic Test (Pha) 1 strip IQ4HR 11/21/24 04:00 11/22/24 16:18 1 STRIP Insulin Human Regular IQ4HR SC 11/21/24 04:00 11/22/24 16:22 3 UNITS Dextrose 50 ml UD PRN IV 11/21/24 02:30 Acetaminophen/ Hydrocodone Bitart 1 tab Q4HP PRN PO 11/21/24 02:30 11/21/24 22:47 1 TAB Ondansetron HCl 4 mg Q4HP PRN IV 11/21/24 02:30 Acetaminophen 650 mg Q6HP PRN PO 11/21/24 02:30 Atorvastatin Calcium 40 mg HS PO 11/21/24 22:00 11/21/24 21:06 40 MG Nitroglycerin 0.4 mg Q5MINP PRN SL 11/21/24 03:00 Morphine Sulfate 2 mg Q30M PRN IV 11/21/24 03:00 Patient Own Medication 20 mg DAILY PO 11/21/24 10:00 UNV Atorvastatin Calcium 40 mg HS PO 11/21/24 22:00 Cancel Aspirin 81 mg DAILY PO 11/22/24 10:00 11/22/24 10:53 81 MG Clopidogrel Bisulfate 75 mg DAILY PO 11/22/24 10:00 11/22/24 10:54 75 MG Furosemide 20 mg DAILY PO 11/22/24 10:00 11/22/24 10:54 20 MG Empaglifozin 10 mg DAILY PO 11/22/24 10:00 11/22/24 10:54 10 MG Spironolactone 12.5 mg DAILY PO 11/22/24 10:00 11/22/24 10:53 12.5 MG Sacubitril/ Valsartan 0.5 tab BID PO 11/21/24 22:00 11/22/24 10:55 0.5 TAB Insulin Glargine 20 units HS SC 11/21/24 22:00 11/21/24 21:30 20 UNITS Metoprolol Succinate 25 mg DAILY PO 11/22/24 10:00 11/22/24 10:56 25 MG Examination Patient lying in bed, not in acute distress Skin: Warm, dry, normal color and texture, no rash. HEENT: Normocephalic atraumatic, mucous membranes moist and pink. Neck: Cervical and supraclavicular nodes normal without enlargement, trachea is midline, thyroid gland is normal without masses. Pulmonary: Clear to auscultation and percussion bilaterally. Cardiac: Regular rate and rhythm. No murmur Abdomen: Soft, nontender, nondistended, bowel sounds present all 4 quadrants, no guarding, no rigidity, no organomegaly. Extremities: No cyanosis, clubbing, no edema Neuro: Cranial nerves II through XII grossly intact, normal affect and speech, no focal motor deficits. laboratory and microbiology Laboratory Tests 11/22/24 06:00 Test 11/22/24 06:00 Range/Units Serum Glucose 150 H 74-106 mg/dL Microbiology Date/Time Source Procedure Growth Status 11/21/24 05:00 Urine - [place] Urine Culture - Preliminary Resulted 11/21/24 03:45 Nose MRSA Screen - Final Complete Labs and/or images reviewed: Labs reviewed by me, Image(s) reviewed by me Problem List/Assessment/Plan Problem List/Assessment/Plan This is a 64-year-old male with past medical history of HTN, dm 2, back pain- herniated disc came with a complaint of chest pain which is pressure-like sensation few months before came to the hospital and getting worse, 5-6/10 intensity, radiates from right to left side of the chest, no aggravating or relieving factors. As per patient, patient was in bathroom and after that suddenly he felt lightheadedness and experienced of fall denies head trauma. AIn ER, EKG shows STEMI lead ll,lll ,AVF with reciprocal changes in aVL, V1, V2, V3. Cardiology consulted and confirmed STEMI and patient was scheduled for left heart catheterization on 11/21/2024. NEUROLOGY: Syncope * Patient alert oriented x4 * No neurological weakness * Plan: Monitor and neuro check CARDIOVASCULAR: Acute ST-elevation inferior myocardial infarction [place] decompensated HFrEF Ischemic cardiomyopathy Essential hypertension Hyperlipidemia Bradycardia * Echo on 08/13/2024 shows LVEF 55-60%, mild LVH, RV mild dilated no significant valvular disease, ventriculography ejection fraction 30-35%. * On admission EKG shows ST-elevation * Troponin 16> 2846 * Coronary angiogram on: 11/21/2024-The RCA is a large vessel it is occluded at its mid to distal segment. * Left main is large and normal. Balloon angioplasty 1 stent placed RCA. * Plan: Dual antiplatelet, statin, fenofibrate, start GDMT and risk factor modification and diabetes. PULMONARY: No abnormality detected on physical examination CXR pulmonary venous congestion. GASTROINTESTINAL: GERD Plan: Protonix for GI prophylaxis GENITOURINARY: WILMAR secondary to hemodynamically mediated/VMN ? BPH * On admission creatinine 1 .23, baseline creatinine 0.79 * Hypokalemia * Plan: IVF and oral fluid intake, PSA, BMP HEMATOLOGY: Leukocytosis likely secondary to myocardial damage. * Plan: Monitor CBC METABOLIC: Diabetes mellitus type 2 Hypertriglyceridemia Mixed hyperlipidemia * Hemoglobin [id number] pending * Monitor blood sugar * Plan: ISS INFECTIOUS DISEASE: Lactic acidosis * Leukocytosis likely myocardial damage * Plan: Lactic acid level, CBC MUSCULOSKELETAL/SKIN Chronic low-back pain Plan: Continue [place] Substance use disorder * U tox shows positive cannabinoid,(visit B, opiate, fentanyl-possible got in ER) * More than 17 minutes spent counseling abstinence from substance use. DIET: Diabetic DVT prophylax: SCDs GI prophylaxis: Protonix Bowel regimen: none Code status: Full code LINES/DRAINS/ACCESS: IV access: Peripheral Drips: Versed, fentanyl, Levophed Bradshaw catheter: Changed on 10/04 DISPOSITION: ICU to tele downgrade Patient's status discussed with patient's , patient uncle Critical care time spent more than 87 minutes, including patient care, updating the family. Excluding any procedures Case discussed with Dr. Hanson Plan discussed with: Patient, Other ERNESTO STUART Nov 22, 2024 16:53
[2024-11-22] MEDS ORDERED: ATOR40TA52 PO (16:57)
[2024-11-22] MEDS ORDERED: LOSA-534 PO (16:57)
[2024-11-22] MEDS ORDERED: CLOP75TA70 PO (16:57)
[2024-11-22] MEDS ORDERED: ASPI-498 OR (16:57)
[2024-11-22] MEDS ORDERED: METF-490 PO (16:57)
[2024-11-22] MEDS ORDERED: EMPA1TAB PO (16:57)
[2024-11-22] MEDS ORDERED: SPIR50TA5 PO (16:57)
[2024-11-22] MEDS ORDERED: METO-289 PO (16:57)
[2024-11-23 01:00] VITALS: BP 110/69; PULSE 64; RESP 16; TEMP 98; O2SAT 99
[2024-11-23 05:00] VITALS: BP 118/82; PULSE 65; RESP 17; TEMP 98.3; O2SAT 98
[2024-11-23 07:05] LABS: Hematocrit 46.7 % (41.0-53.0); Hemoglobin 16.4 g/dL (13.5-17.5); Mean Corpuscular Hemoglobin 30.9 pg (28.0-32.0); Mean Corpuscular Volume 88.3 fL (80.0-100.0); Nucleated Red Blood Cells % 0.3 %
[2024-11-23 07:19] LABS: Alanine Aminotransferase 34 U/L (7-40); Albumin 4.1 g/dL (3.2-4.8); Alkaline Phosphatase 58 U/L (46-116); Anion Gap 10 (5-15); BUN/Creatinine Ratio 14.1 (10.0-20.0); Blood Urea Nitrogen 14 mg/dL (9-23); Calcium 9.3 mg/dL (8.7-10.4); Carbon Dioxide 26 mmol/L (20-31); Chloride 106 mmol/L (98-107); Sodium 142 mmol/L (136-145); Total Protein 6.8 g/dL (5.7-8.2)
[2024-11-23 07:20] LABS: Bilirubin, Total 0.8 mg/dL (0.2-1.0)
[2024-11-23 07:40] LABS: Glucose 139 mg/dL (74-106); Potassium 3.5 mmol/L (3.5-5.1)
[2024-11-23 08:00] VITALS: PULSE 64
[2024-11-23 09:00] VITALS: BP 107/76; PULSE 76; RESP 17; TEMP 98.1; O2SAT 97
[2024-11-23 13:00] VITALS: BP 153/95; PULSE 72; RESP 17; TEMP 98; O2SAT 99
--- NOTE | 2024-11-23 13:41 | DVHDSRES ---
Discharge Summary Date of Admission Resident Creating Document: MAGALY PEREZ RESIDENT Nov 21, 2024 at 03:00 Date of Discharge: Nov 23, 2024 Labs/Diagnostic Data: Laboratory Results Test 11/23/24 11:40 11/23/24 05:59 11/22/24 06:00 11/21/24 16:33 POC Glucose 165 mg/dl (70-106) White Blood Count 10.7 10^3/uL (4.4-10.8) Red Blood Count 5.29 10^6/uL (4.5-5.90) Hemoglobin 16.4 g/dL (13.5-17.5) Hematocrit 46.7 % (41.0-53.0) Mean Corpuscular Volume 88.3 fL (80.0-100.0) Mean Corpuscular Hemoglobin 30.9 pg (28.0-32.0) Mean Corpuscular Hemoglobin Concent 35.0 g/dL (32.0-36.0) Red Cell Distribution Width 12.9 % (11.8-14.3) Platelet Count 221 10^3/uL (140-450) Mean Platelet Volume 8.8 fL (6.9-10.8) Neutrophils (%) (Auto) 69.4 % (37.0-80.0) Lymphocytes (%) (Auto) 18.8 % (10.0-50.0) Monocytes (%) (Auto) 8.0 % (0.0-12.0) Eosinophils (%) (Auto) 3.4 % (0.0-7.0) Basophils (%) (Auto) 0.4 % (0.0-2.0) Neutrophils # (Auto) 7.4 10 ^3/uL (1.6-8.6) Lymphocytes # (Auto) 2.0 10 ^3/uL (0.4-5.4) Monocytes # (Auto) 0.9 10 ^3/uL (0-1.3) Eosinophils # (Auto) 0.4 10 ^3/uL (0-0.8) Basophils # (Auto) 0 10 ^3/uL (0-0.2) Nucleated Red Blood Cells 0.3 % Sodium Level 142 mmol/L (136-145) Potassium Level 3.5 mmol/L (3.5-5.1) Chloride Level 106 mmol/L (98-107) Carbon Dioxide Level 26 mmol/L (20-31) Anion Gap 10 (5-15) Blood Urea Nitrogen 14 mg/dL (9-23) Creatinine 0.99 mg/dL (0.700-1.30) Glomerular Filtration Rate Calc 86 mL/min (>90) BUN/Creatinine Ratio 14.1 (10.0-20.0) Serum Glucose 139 mg/dL (74-106) Calcium Level 9.3 mg/dL (8.7-10.4) Total Bilirubin 0.8 mg/dL (0.2-1.0) Aspartate Amino Transferase (AST) 39 U/L (13-40) Alanine Aminotransferase (ALT) 34 U/L (7-40) Alkaline Phosphatase 58 U/L (46-116) Total Protein 6.8 g/dL (5.7-8.2) Albumin 4.1 g/dL (3.2-4.8) Free Prostate Specific Antigen 0.32 ng/mL (N/A) Percent Free Prostate Specific Ag 32.0 % (.) Prostate Specific Antigen Total 1.0 ng/mL (0.0-4.0) Test 11/21/24 14:35 11/21/24 08:37 11/21/24 05:00 11/21/24 01:30 Lactic Acid Level 2.4 mmol/L (0.4-2.0) Troponin I High Sensitivity 2846 ng/L (</=54) Urine Color Light-yellow (Yellow) Urine Clarity Clear (Clear) Urine pH 6.5 (5.0-9.0) Urine Specific [place] 1.035 (1.001-1.035) Urine Protein Negative (Negative) Urine Ketones Trace (Negative) Urine Blood 2+ /uL (Negative) Urine Nitrite Negative (Negative) Urine Bilirubin Negative (Negative) Urine Urobilinogen Normal mg/dL (Negative) Urine Leukocyte Esterase Negative /uL (Negative) Urine RBC 20 /hpf (0 - 3) Urine Microscopic WBC 1 /HPF (0-3) Urine Squamous Epithelial Cells None seen /hpf (<5) Urine Bacteria None seen /hpf (None Seen) Urine Glucose 4+ mg/dL (Normal) Urine Opiates Screen Pos (NEGATIVE) Urine Fentanyl Screen Pos (NEGATIVE) Urine Barbiturates Screen Neg (NEGATIVE) Urine Phencyclidine Screen Neg (NEGATIVE) Urine Amphetamines Screen Neg (NEGATIVE) Urine Benzodiazepines Screen Pos (NEGATIVE) Urine Cocaine Screen Neg (NEGATIVE) Urine Cannabinoids Screen Pos (NEGATIVE) Prothrombin Time 10.4 sec (9.3-11.8) Prothrombin Time INR 0.98 (0.9-1.15) Activated Partial Thromboplast Time 22.6 SEC (24.5-34.5) Hemoglobin A1c 8.1 % A1C (<5.7) Magnesium Level 2.0 mg/dL (1.6-2.6) B-Type Natriuretic Peptide 2.08 pg/mL (0-100) Triglycerides Level 788 mg/dL (< 150) Cholesterol Level 183 mg/dL (< 200) LDL Cholesterol mg/dL (< 100) HDL Cholesterol 30 mg/dL (40-59) Thyroid Stimulating Hormone (TSH) 2.52 uIU/mL (0.55-4.78) Other Laboratory Tests 11/23/24 05:59 Brief Hx & Hospital Course: History of present illness: This is a 64-year-old male with past medical history of HTN, dm 2, back pain-herniated disc came with a complaint of chest pain which is pressure-like sensation few months before came to the hospital and getting worse, 5-6/10 intensity, radiates from right to left side of the chest, no aggravating or relieving factors. As per patient, patient was in bathroom and after that suddenly he felt lightheadedness and experienced of fall denies head trauma. As per EMS, patient experiencing urination difficulty patient passed out approximately 3 minutes, he was found on the floor by son. He was having chest pain for several months now on and off over his chest.. On arrival ER, patient AO x4, HR 50s, patient hypotensive systolic blood pressure 80s, EKG shows STEMI lead ll,lll ,AVF with reciprocal changes in aVL, V1, V2, V3. Cardiology consulted and confirmed STEMI and patient was scheduled for left heart catheterization. Patient having similar episode like presyncopal attack 2 years ago and fall on ground, sent to ER and after workup in ER everything comes out normal and discharged home after 4 hours. No stress test, echo or angiogram done before, never seen by cardiology. Past medical history: hypertension, diabetes, back pain - herniated disc, Past surgical history tonsillectomy hernia surgery right knee replacement Smoker: Non-Smoker Alcohol: Occasionally Drugs: Denies Drug Use Lives In: Home PCP: Dr. Wiggins([phone]) Pain management: Interview [facility]([phone]) Home medication: Lisinopril, atorvastatin, amlodipine, Basaglar, NovoLog, oxycodone. Hospital course: Patient admitted due to acute ST elevation inferior myocardial infection. On admission EKG shows ST-elevation. Echo on 08/13/2024 shows LVEF 55-60%, mild LVH, RV mild dilated no significant valvular disease, ventriculography ejection fraction 30-35%. Troponin 16> 2846. Cardiology consulted and Coronary angiogram done on 11/21/2024-The RCA is a large vessel it is occluded at its mid to distal segment.Left main is large and normal. Balloon angioplasty 1 stent placed RCA. After procedure, dual antiplatelet, statin, fenofibrate, start GDMT and risk factor modification and diabetes. Echocardiogram on 11/22/2024: Concentric left ventricular hypertrophy with left atrial enlargement, vulva appears normal, EF 55% with normal RV function, mild aortic regurgitation and mild TR. CT head shows no intracranial abnormality. Lab shows hemoglobin A1c- 8.1. Educate and recommended to avoid sugar and sugar containing foods and strict blood sugar control. Patient having urinary symptoms during admission. Renal Ultrasound showed no significant sonographic abnormality of the kidney, PSA level(free PSA 0.32, percentage of free PSA 32.0 and total PSA 1.0) in normal range. Patient advised to follow-up outpatient urology if symptoms persist. On 11/23/2024, patient currently denies any SOB, chest pain, headache, fever, vomiting, abdominal pain dysuria or any other acute distress. Patient is hemodynamically stable for discharge. The patient has received maximum benefits from inpatient treatment. Time was given to answer patient questions and concerns in Layman terms. patient verbalized understanding and agree with treatment and follow-up. Patient was recommended to return to the ED if she experiences any worsening symptoms such as, but not limited to current symptoms. Continue current home medication. Follow-up with discharge Clinic within 1 weeks on Sunday morning and follow up with PCP, Cardiology within 2 weeks after discharge . Patient educated and advised to resume home medication. Discharge plan; Continue dual antiplatelet therapy. Follow-up with primary care within week after discharge Follow-up with Cardiology within 2 weeks after discharge Follow-up outpatient continuity clinic Sunday morning On physical examination Constitutional: No: Fever, Chills, Sweats, Weakness, Malaise, Other Eyes: No: Pain, Vision change, Conjunctivae inflammation, Eyelid inflammation, Other, Redness ENT: No: Ear pain, Ear discharge, Nose pain, Nose discharge, Nose congestion, Mouth pain, Mouth swelling, Throat pain, Throat swelling, Other Respiratory: Shortness of breath; No: Cough, Dry, SOB with excertion, Wheezing, Hemoptysis, Pleuritic Pain, Sputum, Wheezing, Other Cardiovascular: No: Chest Pain, Palpitations, Orthopnea, Paroxysmal Noc. Dyspnea, Edema, Lt Headedness, Other Gastrointestinal: No: Nausea, Vomiting, Abdominal Pain, Diarrhea, Constipation, Melena, Hematochezia, Other Genitourinary: No Dysuria, No Frequency, No Incontinence, No Hematuria, No Retention, No Other Musculoskeletal: No: other, neck pain, shoulder pain, arm pain, back pain, hand pain, leg pain, foot pain Skin: No: Rash, Lesions, Jaundice, Bruising, Other Neurological: No: Weakness, Numbness, Incoordination, Change in speech, Confusion, Seizures, Other More than 41 minute spent with patient. Case discussed with patient, nurse, Dr. Hanson Condition at Discharge: Stable Final Diagnosis/Problems List Acute ST-elevation inferior myocardial infarction Successful angioplasty and stenting of the RCA. [place] decompensated HFrEF Ischemic cardiomyopathy Acute systolic heart failure Diabetes mellitus type 2 Hypertriglyceridemia Mixed hyperlipidemia Essential hypertension Hyperlipidemia Bradycardia GERD WILMAR secondary to hemodynamically mediated/VMN Leukocytosis likely secondary to myocardial damage. Lactic acidosis Chronic low-back pain Substance use disorder Discharge Disposition: Home Discharge Instruct/Medications Diet: Cardiac 2g Na,low cholest Activity: No Restrictions, As Tolerated Follow Up/Referral: PCP Outpatient continuity clinic Sunday Cardiology follow-up within 2 weeks after discharge Scheduled Aspirin (Aspirin 81), 81 MG OR DAILY Atorvastatin Calcium (Atorvastatin Calcium), 80 MG PO DAILY Clopidogrel Bisulfate (Clopidogrel), 75 MG PO DAILY Empagliflozin (Jardiance), 10 MG PO DAILY Losartan Potassium (Losartan Potassium), 50 MG PO DAILY Metformin HCl (Metformin Hydrochloride), 1,000 MG PO BID, (Reported) Metformin Hydrochloride (Metformin Hcl Er), 1,000 MG PO DAILY Metoprolol Succinate (Metoprolol Succinate Er), 50 MG PO DAILY Sitagliptin Phosphate (Januvia), 25 MG PO DAILY Spironolactone (Spironolactone), 1 TAB PO DAILY Scheduled PRN Insulin Aspart (Novolog Flexpen Relion), 3 UNIT SC TIDPRN PRN Discharge Statement: "Patient was advised to return to the ER or call 911 if any headaches, dizziness, shortness of breath, chest pain, abdominal pain, bleeding, fevers, or worsening of medical condition. Patient was counseled about treatment plan, medications, possible side effects, patientverbalized understanding. All questions were answered to the best of my ability. This discharge took greater then 30 minutes in planning, reviewing documentation, counseling the patient, and discussing with other team members." ASSESSMENT ASSESSMENT Assessment Successful angioplasty and stenting of the RCA. MAGALY PEREZ RESIDENT Nov 23, 2024 13:40
[2024-11-23 14:10] VITALS: BP 107/76; PULSE 76; TEMP 36.7
== END 2024-11-23 16:02 | disposition home or self-care (01) | DRG 321 ==
LOC: EDBD 01:22 → ER 01:22 → OVERFLOW 03:00 → ICU CENTRL 03:41 → TELE-WESTW 18:39
PROVIDERS: ADMIT Internal Medicine Pulmonary Disease; ATTEND Internal Medicine Pulmonary Disease
PROC: 027034Z Dilation of Coronary Artery, One Artery with Drug-eluting Intraluminal Device, Percutaneous Approach (ICD-10-PCS; principal; 2024-11-21)
PROC: 4A023N7 Measurement of Cardiac Sampling and Pressure, Left Heart, Percutaneous Approach (ICD-10-PCS; 2024-11-21)
PROC: B211YZZ Fluoroscopy of Multiple Coronary Arteries using Other Contrast (ICD-10-PCS; 2024-11-21)
PROC: B215YZZ Fluoroscopy of Left Heart using Other Contrast (ICD-10-PCS; 2024-11-21)
DX: I21.19 ST elevation (STEMI) myocardial infarction involving other coronary artery of inferior wall (principal); I50.21 Acute systolic (congestive) heart failure; N17.0 Acute kidney failure with tubular necrosis; E87.20 Acidosis, unspecified; I25.10 Atherosclerotic heart disease of native coronary artery without angina pectoris; E87.6 Hypokalemia; K21.9 Gastro-esophageal reflux disease without esophagitis; I25.5 Ischemic cardiomyopathy; I11.0 Hypertensive heart disease with heart failure; E11.65 Type 2 diabetes mellitus with hyperglycemia; Z96.651 Presence of right artificial knee joint; E78.00 Pure hypercholesterolemia, unspecified; D72.829 Elevated white blood cell count, unspecified; E78.1 Pure hyperglyceridemia; G89.29 Other chronic pain; M54.9 Dorsalgia, unspecified; F19.90 Other psychoactive substance use, unspecified, uncomplicated; Z82.49 Family history of ischemic heart disease and other diseases of the circulatory system; Z79.4 Long term (current) use of insulin; Z91.199 Patient's noncompliance with other medical treatment and regimen due to unspecified reason; Z79.82 Long term (current) use of aspirin; Z79.02 Long term (current) use of antithrombotics/antiplatelets
CPT/HCPCS: 36415; 70450; 71045; 76775; 80053; 80061; 80307; 81001; 82306; 82607; 82962; 83036; 83605; 83735; 83880; 84154; 84443; 84484; 85025; 85610; 85730; 86850; 86900; 86901; 87081; 87086; 92941; 93005; 93306; 93458; 96374; 99152; G0378; J1815; J2003; J2250; J2543; J3480; Q9967